=== PATIENT | male | born 1950 | race Caucasian/White ===

== ENCOUNTER 2019-07-12 07:20 | Day surgery (SDC) | payer MEDICARE ==
[2019-07-12] MEDS ORDERED: Lactated Ringers 1,000 ML IV SCH (07:30)
[2019-07-12] MEDS ORDERED: Midazolam 1 MG/ML 2 ML SDV ONE (08:19)
[2019-07-12] MEDS ORDERED: Propofol 200 MG/20 ML SDV ONE ×3 (08:19→09:34)
[2019-07-12] MEDS ORDERED: fentaNYL 100 MCG/2 ML SDV ONE (08:19)
[2019-07-12] MEDS ORDERED: Sodium Chloride 0.9% 10 ML Syringe FLUSH ONE ×2 (10:37→11:39)
[2019-07-12] MEDS ORDERED: Sodium Chloride 0.9% 100 ML IV SCH ×2 (10:45→11:45)
[2019-07-12] MEDS ORDERED: Iopamidol 612 MG/ML 100 ML Bottle IV SCH ×2 (10:45→11:45)
--- NOTE | 2019-07-12 11:55 | OR ---
DATE OF PROCEDURE: 07/12/2019 SURGEON: Christofer Wright MD PREOPERATIVE DIAGNOSIS: Positive Cologuard. POSTOPERATIVE DIAGNOSIS: Small polyps at right colon and splenic flexure tumor 30 cm from the anal verge. PROCEDURE PERFORMED: Colonoscopy to the cecum with biopsy resection of small polyps in the right colon and at the splenic flexure, biopsy of tumor at 30 cm from anal verge with tattoo of the area. ANESTHESIA: IV anesthesia with monitored anesthesia care. INDICATION: This 68-year-old white male is referred for a colonoscopy because of a positive Cologuard. I counseled him for the procedure, including risks and alternatives, and he gave his informed consent to proceed. DESCRIPTION OF PROCEDURE: The patient was placed in the left lateral decubitus position. IV anesthesia was administered by the Anesthesia Service. Time-out was held. A rectal exam was performed, which was unremarkable. The flexible video Olympus colonoscope was introduced through his anus, up his rectum, and out his colon all the way to the cecum. Once the cecum was reached, the scope was slowly withdrawn examining the mucosa throughout. Christofer Wright MD /[id number]
--- NOTE | 2019-07-12 11:58 | OR ---
DATE OF PROCEDURE: 07/12/2019 SURGEON: Christofer Wright MD PREOPERATIVE DIAGNOSIS: Positive Cologuard. POSTOPERATIVE DIAGNOSES: Small polyps at right colon and splenic flexure tumor 30 cm from the anal verge. PROCEDURE PERFORMED: Colonoscopy to the cecum with biopsy resection of small polyps at right colon and splenic flexure, and biopsy with tattoo of tumor at 30 cm from the anal verge. ANESTHESIA: IV anesthesia with monitored anesthesia care. INDICATION: This 68-year-old white male is referred for a colonoscopy because of a positive Cologuard. I counseled him for the procedure including risks and alternatives, and he gave his informed consent to proceed. DESCRIPTION OF PROCEDURE: The patient was placed in the left lateral decubitus position. IV anesthesia was administered by the Anesthesia Service. Time-out was held. A rectal exam was performed, which was unremarkable. The flexible video Olympus colonoscope was introduced through his anus, up his rectum, and out his colon all the way to the cecum. Once the cecum was reached, the scope was slowly withdrawn examining the mucosa throughout. We saw small polyps in the right colon, which were removed with the biopsy forceps and another at the splenic flexure, which was removed with the biopsy forceps. The scope was brought back to about 30 cm from the anal verge, where we saw a tumor consistent with adenocarcinoma. We obtained multiple biopsies of this. We did tattoo the area. The tumor involved about 1/3 to 1/2 of the circumference of the bowel wall. We tattooed with Ericka Ink. The scope was withdrawn further into the rectum, which appeared unremarkable. It was retroflexed with the distal rectum appearing unremarkable. The scope was straightened and removed. He tolerated the procedure well. We will proceed with a CBC, CMP, CEA, a type and screen, and CAT scan of chest, abdomen, and pelvis with the expectation of doing a colon resection. Christofer Wright MD /[id number]
--- NOTE | 2019-07-12 13:38 | CRLCT ---
INDICATION: Found tumor in sigmoid colon during colonoscopy on 07/12/2019. TECHNIQUE: CT chest, abdomen, and pelvis acquired with 100 cc Isovue-300 IV contrast. Oral contrast was administered. Coronal and sagittal reconstructions. COMPARISON: None. FINDINGS: Chest: Normal heart size. Conventional 3 vessel aortic arch. Normal caliber thoracic aorta and central pulmonary arteries. Coronary artery and aortic vascular calcifications. No large or central pulmonary embolism. No pericardial effusion. Mitral annulus calcifications. No thoracic lymphadenopathy. 1.6 cm low-attenuation right thyroid nodule. Bilateral gynecomastia. No focal consolidation, pleural effusion, pneumothorax. 2 mm noncalcified pulmonary nodule in the posterior left lower lobe (series 3, image 69). Tiny calcified granuloma left lower lobe. Hypertrophic and degenerative changes of the thoracic spine. Abdomen/pelvis: There is a 6 mm low-attenuation lesion in the left hepatic lobe (series 2, image 107). This is too small to characterize. The gallbladder, spleen, pancreas, and adrenal glands are negative. Small low-attenuation lesions in both kidneys are too small to characterize but most likely represent benign cysts. Symmetric nephrograms. No hydronephrosis. No obstructing urinary calculi. Enlarged prostate which indents on the bladder base. Small bilateral fat containing inguinal hernias. Tiny fat containing midline ventral hernia. No bowel dilation. No mass is visualized within the sigmoid colon. There is a possible 1.3 cm polyp within the ascending colon near the hepatic flexure (series 2, image 131). No intraperitoneal free air or fluid. Aortoiliac vascular calcifications. No lymphadenopathy. Degenerative changes of the spine. IMPRESSION: 1. No mass is visualized within the sigmoid colon. There is a possible 1.3 cm polyp within the ascending colon near the hepatic flexure. Recommend correlation with colonoscopy results. 2. Indeterminate 6 mm low-attenuation lesion in the left hepatic lobe which is too small to characterize. In the setting of known malignancy, metastatic disease cannot be excluded. Consider further evaluation with MRI. 3. 2 mm noncalcified pulmonary nodule in the left lower lobe. 4. 1.6 cm low-attenuation right thyroid nodule. 5. Enlarged prostate. Please note that all CT scans at this facility use dose modulation, iterative reconstruction, and/or weight-based dosing when appropriate to reduce radiation dose to as low as reasonably achievable. Dictated by Caitlyn Krishnan MD @ Jul 12 2019 1:19PM Signed by Dr. Caitlyn Krishnan @ Jul 12 2019 1:35PM
== END 2019-07-12 12:40 | disposition home or self-care (01) ==
LOC: JP.SDS 07:20
PROVIDERS: ATTEND Surgery
DX: C18.7 Malignant neoplasm of sigmoid colon (principal); D12.3 Benign neoplasm of transverse colon; D12.2 Benign neoplasm of ascending colon; I10 Essential (primary) hypertension; E11.9 Type 2 diabetes mellitus without complications; E78.5 Hyperlipidemia, unspecified; E66.9 Obesity, unspecified; Z88.8 Allergy status to other drugs, medicaments and biological substances; Z68.35 Body mass index [BMI] 35.0-35.9, adult
CPT/HCPCS: 36415; 45380; 45381; 71260; 74177; 80053; 82378; 85027; 86850; 86900; 86901; J2250; J2704; J3010; J7030; J7120; Q9967; 88305; 88341

== ENCOUNTER 2019-08-14 07:33 | Inpatient (IN) | payer MEDICARE ==
[2019-08-14] MEDS ORDERED: Gabapentin 300 MG Cap PO ONE (07:45)
[2019-08-14] MEDS ORDERED: Acetaminophen 500 MG Tab PO ONE (07:45)
[2019-08-14] MEDS ORDERED: Celecoxib 200 MG Cap PO ONE (07:45)
[2019-08-14] MEDS: Scopolamine 1.5 MG Transdermal Patch TOP SCH (08:09)
[2019-08-14] MEDS ORDERED: Dextrose 5%-Lactated Ringers 1,000 ML IV SCH (08:45)
[2019-08-14] MEDS ORDERED: cefOXitin 2 GM in Sodium Chloride 0.9% 50 ML IV ONE (09:00)
[2019-08-14] MEDS ORDERED: Sodium Phosphate,Monobasic/Sodium Phosphate,Dibasic Enema 133 ML Bottle RECTAL ONE (09:08)
[2019-08-14] MEDS ORDERED: Ketamine 50 MG in Sodium Chloride 0.9% 49.5 ML IV SCH (10:00)
[2019-08-14] MEDS ORDERED: Ketamine 500 MG/5 ML MDV IV SCH (10:00)
[2019-08-14] MEDS ORDERED: fentaNYL 250 MCG/5 ML SDV ONE ×2 (10:31→11:41)
[2019-08-14] MEDS ORDERED: Ondansetron 4 MG/2 ML SDV ONE (10:32)
[2019-08-14] MEDS ORDERED: Propofol 200 MG/20 ML SDV ONE (10:32)
[2019-08-14] MEDS ORDERED: Rocuronium 50 MG/5 ML Vial ONE ×2 (10:32→11:41)
[2019-08-14] MEDS ORDERED: Neostigmine Methylsulfate 1 MG/ML 5 ML Syringe ONE (10:32)
[2019-08-14] MEDS ORDERED: Glycopyrrolate 0.2 MG/ML 5 ML MDV ONE (10:32)
[2019-08-14] MEDS ORDERED: Dexamethasone 4 MG/ML SDV ONE (10:32)
[2019-08-14] MEDS ORDERED: Lactated Ringers 1,000 ML ONE (11:14)
[2019-08-14] MEDS ORDERED: Acetaminophen 1,000 MG in Premix Bag 1 BAG IV PRN (14:02)
[2019-08-14] MEDS ORDERED: hydrOXYzine HCl 100 MG/2 ML SDV IM PRN (14:02)
[2019-08-14] MEDS ORDERED: Ondansetron 4 MG/2 ML SDV IVPUSH PRN (14:02)
[2019-08-14] MEDS ORDERED: Scopolamine 1.5 MG Transdermal Patch TRDERM PRN (14:16)
--- NOTE | 2019-08-14 14:46 | OR ---
DATE OF PROCEDURE: 08/14/2019 SURGEON: Christofer Wright MD PREOPERATIVE DIAGNOSIS: Adenocarcinoma of the colon, 30 cm from the anal verge. POSTOPERATIVE DIAGNOSIS: Adenocarcinoma of the colon, 30 cm from the anal verge. PROCEDURE: Sigmoid resection with primary left colon to rectum anastomosis. ANESTHESIA: General endotracheal. INDICATION: This 68-year-old white male underwent a colonoscopy about a month ago because of a positive Cologuard. This was his first colonoscopy. We encountered a few polyps, but at 30 cm from the anal verge, we saw a lesion which was consistent with cancer. It was biopsied and returned adenocarcinoma. A CAT scan of his abdomen showed a small lesion in the left lobe of the liver. A followup MRI was ultimately done, which showed that this was a benign cyst. His CEA was elevated at 9.7. He was taken to the operating room at this time for a sigmoid resection. I counseled him for the procedure, including risks and alternatives, and he gave his informed consent to proceed. DESCRIPTION OF PROCEDURE: After adequate general endotracheal anesthesia was obtained, a Hughes catheter was placed. He was placed in low lithotomy. The leg compression stockings were in place and used during the entire procedure. His abdomen and perineum were prepped and draped in the usual sterile fashion. Time-out was held. A midline incision was made from above to below the umbilicus. This was carried deep using Bovie cautery to the fascia. The fascia was incised and the underlying peritoneum was elevated and incised. The fascia and peritoneum were divided to the length of the skin incision using Bovie cautery while protecting the underlying structures. The abdomen was explored. I did not palpate any abnormalities. The white line of Toldt was taken down to mobilize up the left and sigmoid colon. We did not mobilize the splenic flexure. We did tattoo the lesion, but could not immediately find it. The colonoscope was then introduced through the anus and up the rectum, and we were able to identify the site and the tattoo was then readily evident. Of interest, the sigmoid colon went up into the right and came back down into the pelvis and then up along the left colic gutter. We mobilized up the entire sigmoid colon. A suitable site for dividing the colon well proximal and distal to the tumor was selected. They were then divided with the ANTONELLA stapler in the left colon proximally and in the rectum distally. The intervening mesentery was divided well away from the colon with endoscopic ANTONELLA shae using osorio loads. We searched for the ureter and could not find it, it was quite obese. Because of that, we did stay up from the posterior abdomen level. The specimen was then delivered from the field. The end-to-end anastomosis was done using a 28 EEA stapler. The proximal staple line was excised. The anvil was placed up into the left colon. It was then re-stapled with the ANTONELLA. The EEA was then passed up through the rectum, all the way to the end of the rectum, where the staple line was. The trocar was advanced through the rectum and the other trocar on the anvil was also advanced through the left colon. We removed the trocar from the EEA and then attached the 2 pieces together, and we tightened it up. We saw the green spot on the EEA. It was then fired. It was unscrewed 2 full turns and then the EEA was gently removed. It had 2 donuts of tissue indicating a good anastomosis. The colonoscope was then introduced into the rectum. After filling the abdomen with sterile water, we insufflated and had no bubbles. The anastomosis appeared well. The scope was then removed. 3-0 Vicryl was used to close the mesenteric defect. Tisseel, fibrin sealant was placed over the anastomosis. The abdomen was irrigated with sterile water and suctioned dry. A TAP block was then performed. 40 mL of the TAP block solution was first introduced into the left side. This was done by placing the needle down through the abdominal wall and could palpate it into an appropriate position from the inside. We injected 40 mL of the fluid after aspirating it. We repeated the process with another 40 mL on the right side and all looked well. The fascia was closed with a running stitch of #2 Vicryl. The incision was irrigated and dried. 1 inch iodoform gauze was placed in the abdomen and a sterile dressing was placed with plan for delayed primary closure in 2 days. He was taken out of low lithotomy. The anesthesia was reversed. He was extubated and brought to recovery room in good condition. Christofer Wright MD /[id number]
[2019-08-14] MEDS: VERIFY SCOP PATCH TOP SCH (15:11)
[2019-08-14] MEDS: Lactated Ringers 1,000 ML IV SCH (15:19)
[2019-08-14] MEDS ORDERED: Pantoprazole 40 MG Vial IVPUSH SCH (16:00)
[2019-08-14] MEDS ORDERED: HYDROmorphone 0.5 MG/0.5 ML Syringe IVPUSH PRN (16:43)
[2019-08-14] MEDS: Insulin Lispro 100 Unit/ML 3 ML KwikPen SUBCUT SCH ×2 (17:26→22:22)
[2019-08-14] MEDS: Tamsulosin 0.4 MG Cap.ER PO SCH (20:17)
[2019-08-15] MEDS: Lactated Ringers 1,000 ML IV SCH (05:05)
[2019-08-15] MEDS ORDERED: Bisacodyl 5 MG Tab PO PRN (06:37)
--- NOTE | 2019-08-15 06:52 | PCM.SURGPN ---
- General Info Date of Service: 08/15/19 Date of Surgery/Procedure: 08/14/19 POD#: 1 Post-Op Diagnosis: Adenocarcinoma, colon Admission Diagnosis/Problem: Adenocarcinoma of colon Functional Status: Reports: Tolerating Diet, Ambulating, Urinating (Hughes), Incentive Spirometry - Review of Systems General: Reports: No Symptoms HEENT: Reports: No Symptoms Pulmonary: Reports: No Symptoms Cardiovascular: Reports: No Symptoms Gastrointestinal: Reports: Abdominal Pain. Denies: Flatus Genitourinary: Reports: No Symptoms Musculoskeletal: Reports: No Symptoms Skin: Reports: No Symptoms Neurological: Reports: No Symptoms Psychiatric: Reports: No Symptoms - Patient Data Vitals - Most Recent: Last Vital Signs Temp 98.8 F 08/15/19 02:36 Pulse 101 H 08/15/19 02:36 Resp 18 08/15/19 02:36 BP 167/80 H 08/15/19 02:36 Pulse Ox 94 L 08/15/19 02:36 Weight - Most Recent: 286 lb I&O - Last 24 Hours: Intake & Output 08/14/19 08/14/19 08/15/19 14:59 22:59 06:59 Intake Total 100 1828 2095 Output Total 855 1000 Balance 035 074 4760 Lab Results Last 24 Hrs: Laboratory Results - last 24 hr 08/14/19 08/14/19 08/14/19 Range/Units 08:00 08:00 08:00 WBC 8.2 (4.5-11.0) K/uL RBC 4.99 (4.30-5.90) M/uL Hgb 14.6 (12.0-15.0) g/dL Hct 43.4 (40.0-54.0) % MCV 87 (80-98) fL MCH 29 (27-31) pg MCHC 34 (32-36) % Plt Count 192 (150-400) K/uL Sodium 138 L (140-148) mmol/L Potassium 3.5 L (3.6-5.2) mmol/L Chloride 100 (100-108) mmol/L Carbon Dioxide 29 (21-32) mmol/L Anion Gap 12.5 (5.0-14.0) mmol/L BUN 21 H (7-18) mg/dL Creatinine 1.3 (0.8-1.3) mg/dL Est Cr Clr Drug Dosing 64.53 mL/min Estimated GFR (MDRD) 55 L (>60) Glucose 201 H (74-106) mg/dL Calcium 9.5 (8.5-10.1) mg/dL Blood Type O POSITIVE Gel Antibody Screen Negative 08/15/19 08/15/19 Range/Units 06:01 06:01 WBC 16.4 H (4.5-11.0) K/uL RBC 4.40 (4.30-5.90) M/uL Hgb 12.9 (12.0-15.0) g/dL Hct 38.2 L (40.0-54.0) % MCV 87 (80-98) fL MCH 29 (27-31) pg MCHC 34 (32-36) % Plt Count 165 (150-400) K/uL Sodium 136 L (140-148) mmol/L Potassium 3.7 (3.6-5.2) mmol/L Chloride 100 (100-108) mmol/L Carbon Dioxide 26 (21-32) mmol/L Anion Gap 13.7 (5.0-14.0) mmol/L BUN 24 H (7-18) mg/dL Creatinine 1.4 H (0.8-1.3) mg/dL Est Cr Clr Drug Dosing 59.92 mL/min Estimated GFR (MDRD) 51 L (>60) Glucose 255 H (74-106) mg/dL Calcium 9.0 (8.5-10.1) mg/dL Blood Type Gel Antibody Screen Med Orders - Current: Current Medications Alvimopan (Entereg) 12 mg PO Q12H [facility] Stop: 08/21/19 08:01 Last Admin: 08/14/19 20:17 Dose: 12 mg Bisacodyl (Dulcolax) 10 mg PO BID PRN PRN Reason: Constipation Enoxaparin Sodium (Lovenox) 40 mg SUBCUT DAILY [facility] Hydromorphone HCl (Dilaudid) 0.5 mg IVPUSH Q1H PRN PRN Reason: Pain (severe 7-10) Hydroxyzine HCl (Vistaril) 50 mg IM Q4H PRN PRN Reason: Nausea Acetaminophen 1,000 mg/ Premix 100 mls @ 400 mls/hr IV Q6H PRN PRN Reason: Pain (severe 7-10) Stop: 08/15/19 14:03 Last Admin: 08/15/19 00:47 Dose: 400 mls/hr Lactated Ringer's (Ringers, Lactated) 1,000 mls @ 75 mls/hr IV ASDIRECTED [facility] Last Admin: 08/15/19 05:05 Dose: 75 mls/hr Ibuprofen (Motrin) 400 mg PO Q4H [facility] Insulin Human Lispro (Humalog) 0 unit SUBCUT QIDACANDBED [facility]; Protocol Last Admin: 08/14/19 22:22 Dose: 3 units Verify Scop Patch 0 each TOP DAILY [facility] Last Admin: 08/14/19 15:11 Dose: Not Given Ondansetron HCl (Zofran) 4 mg IVPUSH Q6H PRN PRN Reason: Nausea/Vomiting Pantoprazole Sodium (Protonix Iv) 40 mg IVPUSH Q24H [facility] Last Admin: 08/14/19 15:21 Dose: 40 mg Scopolamine (Transderm-Scop) 1.5 mg TOP Q72H [facility] Last Admin: 08/14/19 08:09 Dose: 1.5 mg Tamsulosin HCl (Flomax) 0.4 mg PO BEDTIME [facility] Last Admin: 08/14/19 20:17 Dose: 0.4 mg Discontinued Medications Acetaminophen (Tylenol Extra Strength) 1,000 mg PO ONETIME ONE Stop: 08/14/19 07:46 Last Admin: 08/14/19 08:08 Dose: 1,000 mg Alvimopan (Entereg) 12 mg PO ONETIME ONE Stop: 08/14/19 07:46 Last Admin: 08/14/19 08:08 Dose: 12 mg Celecoxib (Celebrex) 200 mg PO ONETIME ONE Stop: 08/14/19 07:46 Last Admin: 08/14/19 08:08 Dose: 200 mg Ropivacaine 60 ml/Dexamethasone 8 mg/Epinephrine HCl 0.4 mg/ Sodium Chloride 17.6 ml 0 ml NERVRT ASDIRECTED [facility] Last Admin: 08/14/19 10:39 Dose: 80 syringe Dexamethasone (Dexamethasone) Confirm Administered Dose 4 mg .ROUTE .STK-MED ONE Stop: 08/14/19 10:33 Fentanyl (Sublimaze) Confirm Administered Dose 250 mcg .ROUTE .STK-MED ONE Stop: 08/14/19 10:32 Fentanyl (Sublimaze) Confirm Administered Dose 250 mcg .ROUTE .STK-MED ONE Stop: 08/14/19 11:42 Gabapentin (Neurontin) 300 mg PO ONETIME ONE Stop: 08/14/19 07:46 Last Admin: 08/14/19 08:08 Dose: 300 mg Glycopyrrolate (Robinul) Confirm Administered Dose 1 mg .ROUTE .STK-MED ONE Stop: 08/14/19 10:33 Cefoxitin Sodium 2 gm/ Sodium (Chloride) 50 mls @ 100 mls/hr IV ONETIME ONE Stop: 08/14/19 09:29 Last Admin: 08/14/19 10:39 Dose: 100 mls/hr Dextrose/Lactated Ringer's (Dextrose 5%-Lactated Ringers) 1,000 mls @ 100 mls/ hr IV ASDIRECTED [facility] Last Admin: 08/14/19 08:34 Dose: 100 mls/hr Ketamine HCl 50 mg/ Sodium (Chloride) 50 mls @ 24.3 mls/hr IV ASDIRECTED [facility] Lactated Ringer's (Ringers, Lactated) Confirm Administered Dose 1,000 mls @ as directed .ROUTE .STK-MED ONE Stop: 08/14/19 11:15 Ketamine HCl (Ketalar) 40 mg IV ASDIRECTED [facility] Neostigmine Methylsulfate (Neostigmine) Confirm Administered Dose 5 mg .ROUTE .STK-MED ONE Stop: 08/14/19 10:33 Ondansetron HCl (Zofran) Confirm Administered Dose 4 mg .ROUTE .STK-MED ONE Stop: 08/14/19 10:33 Propofol (Diprivan 20 Ml) Confirm Administered Dose 200 mg .ROUTE .STK-MED ONE Stop: 08/14/19 10:33 Rocuronium Hamilton (Zemuron) Confirm Administered Dose 50 mg .ROUTE .STK-MED ONE Stop: 08/14/19 10:33 Rocuronium Hamilton (Zemuron) Confirm Administered Dose 50 mg .ROUTE .STK-MED ONE Stop: 08/14/19 11:42 Sodium Biphosphate/Sodium Phosphate (Fleet Enema) 133 ml RECTAL ONETIME ONE Stop: 08/14/19 09:09 Last Admin: 08/14/19 09:13 Dose: 133 ml - Exam Wound/Incisions: Dressing Dry and Intact General: Alert, Oriented, Cooperative, No Acute Distress Lungs: Clear to Auscultation, Normal Respiratory Effort Cardiovascular: Regular Rate, Irregular Rhythm (Occasional extra systole) GI/Abdominal Exam: Distended, Abnormal Bowel Sounds (Quiet). No: Normal Bowel Sounds Extremities: Normal Inspection, Normal Range of Motion Skin: Warm, Dry, Intact Neurological: No New Focal Deficit Psy/Mental Status: Alert, Normal Affect, Normal Mood - Problem List & Annotations (1) Adenocarcinoma of colon SNOMED Code(s): 870797333, 901772660 Code(s): C18.9 - MALIGNANT NEOPLASM OF COLON, UNSPECIFIED Status: Acute Current Visit: Yes (2) Adenocarcinoma of colon SNOMED Code(s): 421275297, 829737163 Code(s): C18.9 - MALIGNANT NEOPLASM OF COLON, UNSPECIFIED Status: Acute Current Visit: Yes - Problem List Review Problem List Initiated/Reviewed/Updated: Yes - My Orders Last 24 Hours: Active Orders 24 hr Category Date Time Status Patient Status [ADT] Routine ADT 08/14/19 14:03 Active Ambulate [RC] ASDIRECTED Care 08/14/19 14:03 Active Antiembolic Devices [RC] .Routine Care 08/14/19 14:11 Active Blood Glucose Check, Bedside [RC] QIDACANDBED Care 08/14/19 14:02 Active Communication Order [RC] DAILY Care 08/15/19 06:44 Ordered DC Hughes Catheter [Urinary Catheter Removal] [RC] Per Care 08/15/19 06:44 Ordered Unit Routine Diabetes Education [RC] Click to Edit Care 08/14/19 14:10 Active Dorsiflex/Plantar flex x 10 [RC] QSHIFT Care 08/14/19 14:03 Active Head of Bed Elevation [RC] CONTINUOUS Care 08/14/19 14:03 Active Intake and Output [RC] Q4HR Care 08/14/19 14:06 Active Notify Provider Intake and Out [RC] PRN Care 08/14/19 14:06 Active Notify Provider Vital Signs [RC] PRN Care 08/14/19 14:06 Active Oxygen Therapy [RC] PRN Care 08/14/19 14:03 Active Pneumonia Education [RC] UPON Care 08/14/19 14:03 Active Pulse Oximetry [RC] CONTINUOUS Care 08/14/19 14:07 Active RT Incentive Spirometry [RC] ASDIRECTED Care 08/14/19 07:45 Active RT Incentive Spirometry [RC] Q1HWA Care 08/14/19 14:03 Active Turn, Cough, Deep Breathe [RC] Q1HWA Care 08/14/19 14:03 Active Up With Assistance [RC] ASDIRECTED Care 08/14/19 14:02 Active Up ad Danica [RC] ASDIRECTED Care 08/14/19 14:02 Active Up to Chair [RC] TIDMEALS Care 08/14/19 14:03 Active VTE/DVT Education [RC] Click to Edit Care 08/14/19 14:11 Active Vital Signs [RC] PER UNIT ROUTINE Care 08/14/19 14:03 Active Consult to Physical Therapy [PT Evaluation and Cons 08/15/19 06:45 Ordered Treatment] [CONS] Routine Respiratory Care Assess and Treatment [CONS] Routine Cons 08/14/19 14:03 Active Advance Diet Instructions [DIET] Diet 08/14/19 Lunch Active BASIC METABOLIC PANEL,BMP [CHEM] DAILY Lab 08/16/19 05:11 Ordered BASIC METABOLIC PANEL,BMP [CHEM] DAILY Lab 08/17/19 05:11 Ordered BASIC METABOLIC PANEL,BMP [CHEM] DAILY Lab 08/18/19 05:11 Ordered BASIC METABOLIC PANEL,BMP [CHEM] DAILY Lab 08/19/19 05:11 Ordered BASIC METABOLIC PANEL,BMP [CHEM] DAILY Lab 08/20/19 05:11 Ordered CBC W/O DIFF,HEMOGRAM [HEME] DAILY Lab 08/16/19 05:11 Ordered CBC W/O DIFF,HEMOGRAM [HEME] DAILY Lab 08/17/19 05:11 Ordered CBC W/O DIFF,HEMOGRAM [HEME] DAILY Lab 08/18/19 05:11 Ordered CBC W/O DIFF,HEMOGRAM [HEME] DAILY Lab 08/19/19 05:11 Ordered CBC W/O DIFF,HEMOGRAM [HEME] DAILY Lab 08/20/19 05:11 Ordered GLUCOSE POC LAB TO COLLECT [POC] QIDACANDBED Lab 08/15/19 07:30 Ordered GLUCOSE POC LAB TO COLLECT [POC] QIDACANDBED Lab 08/15/19 11:30 Ordered GLUCOSE POC LAB TO COLLECT [POC] QIDACANDBED Lab 08/15/19 16:30 Ordered GLUCOSE POC LAB TO COLLECT [POC] QIDACANDBED Lab 08/15/19 21:00 Ordered Acetaminophen [Ofirmev] 1,000 mg Med 08/14/19 14:02 Active Premix Bag 1 bag IV Q6H Alvimopan [Entereg] Med 08/14/19 20:00 Active 12 mg PO Q12H Bisacodyl [Dulcolax] Med 08/15/19 06:37 Ordered 10 mg PO BID PRN Enoxaparin [Lovenox] Med 08/15/19 09:00 Ordered 40 mg SUBCUT DAILY HYDROmorphone [Dilaudid] Med 08/14/19 16:43 Active 0.5 mg IVPUSH Q1H PRN Ibuprofen [Motrin] Med 08/15/19 06:45 Ordered 400 mg PO Q4H Insulin Lispro [HumaLOG] Med 08/14/19 17:00 Active See Protocol SUBCUT QIDACANDBED Lactated Ringers [Ringers, Lactated] 1,000 ml Med 08/14/19 14:15 Active IV ASDIRECTED Non-Formulary Medication [NF Drug] Med 08/14/19 16:00 Active 0 each TOP DAILY Ondansetron [Zofran] Med 08/14/19 14:02 Active 4 mg IVPUSH Q6H PRN Pantoprazole [ProTONIX IV] Med 08/14/19 16:00 Active 40 mg IVPUSH Q24H Scopolamine [Transderm-Scop] Med 08/14/19 07:45 Active 1.5 mg TOP Q72H Tamsulosin [Flomax] Med 08/14/19 21:00 Active 0.4 mg PO BEDTIME hydrOXYzine HCl [Vistaril] Med 08/14/19 14:02 Active 50 mg IM Q4H PRN Abdominal Binder [OM.PC] Per Unit Routine Oth 08/14/19 14:06 Ordered Convert IV to Saline Lock [OM.PC] Routine Oth 08/15/19 06:45 Ordered DVT/VTE Prophylaxis Reflex [OM.PC] Per Unit Routine Oth 08/14/19 14:11 Ordered Glucose Management Sub Q Reflex [OM.PC] Click to Edit Ot 08/14/19 14:02 Ordered Sequential Compression Device [OM.PC] Routine Oth 08/14/19 07:45 Ordered Sequential Compression Device [OM.PC] Routine Oth 08/14/19 14:02 Ordered Resuscitation Status Routine Resus Stat 08/14/19 14:02 Ordered Medication Orders Alvimopan (Entereg) 12 mg PO Q12H [facility] Stop: 08/21/19 08:01 Last Admin: 08/14/19 20:17 Dose: 12 mg Bisacodyl (Dulcolax) 10 mg PO BID PRN PRN Reason: Constipation Enoxaparin Sodium (Lovenox) 40 mg SUBCUT DAILY [facility] Hydromorphone HCl (Dilaudid) 0.5 mg IVPUSH Q1H PRN PRN Reason: Pain (severe 7-10) Hydroxyzine HCl (Vistaril) 50 mg IM Q4H PRN PRN Reason: Nausea Acetaminophen 1,000 mg/ Premix 100 mls @ 400 mls/hr IV Q6H PRN PRN Reason: Pain (severe 7-10) Stop: 08/15/19 14:03 Last Admin: 08/15/19 00:47 Dose: 400 mls/hr Lactated Ringer's (Ringers, Lactated) 1,000 mls @ 75 mls/hr IV ASDIRECTED [facility] Last Admin: 08/15/19 05:05 Dose: 75 mls/hr Infusion: 08/15/19 04:39 Dose: 75 mls/hr Admin: 08/14/19 15:19 Dose: 75 mls/hr Ibuprofen (Motrin) 400 mg PO Q4H [facility] Insulin Human Lispro (Humalog) 0 unit SUBCUT QIDACANDBED [facility]; Protocol Last Admin: 08/14/19 22:22 Dose: 3 units Admin: 08/14/19 17:26 Dose: 4 units Verify Scop Patch 0 each TOP DAILY [facility] Last Admin: 08/14/19 15:11 Dose: Ondansetron HCl (Zofran) 4 mg IVPUSH Q6H PRN PRN Reason: Nausea/Vomiting Pantoprazole Sodium (Protonix Iv) 40 mg IVPUSH Q24H [facility] Last Admin: 08/14/19 15:21 Dose: 40 mg Scopolamine (Transderm-Scop) 1.5 mg TOP Q72H [facility] Last Admin: 08/14/19 08:09 Dose: 1.5 mg Tamsulosin HCl (Flomax) 0.4 mg PO BEDTIME [facility] Last Admin: 08/14/19 20:17 Dose: 0.4 mg - Assessment Assessment (Free Text/Narrative):: Doing well. Tolerating eating. Hungry now. No flatus. Hgb OK. Good UOP. - Plan Plan (Free Text/Narrative):: D/C Hughes. Lovenox. Dulcolax. Ibuprofen.
[2019-08-15] MEDS ORDERED: Ibuprofen 400 MG Tab PO SCH (07:00)
[2019-08-15] MEDS: cloNIDine 0.1 MG Tab PO SCH ×2 (08:17→21:37)
[2019-08-15] MEDS: Ibuprofen 400 MG Tab PO SCH ×2 (08:19→13:00)
[2019-08-15] MEDS: Losartan 50 MG Tab PO SCH (08:19)
[2019-08-15] MEDS: Hydrochlorothiazide 25 MG Tab PO SCH (08:19)
[2019-08-15] MEDS: metFORMIN 500 MG Tab PO SCH ×2 (08:20→16:42)
[2019-08-15] MEDS: glipiZIDE 5 MG Tab.ER PO SCH (08:20)
[2019-08-15] MEDS: Metoprolol Tartrate 50 MG Tab PO SCH ×2 (08:21→21:37)
[2019-08-15] MEDS: amLODIPine 10 MG Tab PO SCH (08:21)
[2019-08-15] MEDS: Enoxaparin 40 MG/0.4 ML Syringe SUBCUT SCH (08:21)
[2019-08-15] MEDS: Insulin Lispro 100 Unit/ML 3 ML KwikPen SUBCUT SCH ×4 (08:22→21:40)
[2019-08-15] MEDS: VERIFY SCOP PATCH TOP SCH (08:26)
[2019-08-15] MEDS: Pantoprazole 40 MG Tab.CR PO SCH (16:41)
[2019-08-15] MEDS: Ibuprofen 600 MG Tab PO SCH ×2 (16:41→21:36)
[2019-08-15] MEDS ORDERED: PIOGLITAZONE HCL 45 MG PO SCH (21:00)
[2019-08-15] MEDS: Tamsulosin 0.4 MG Cap.ER PO SCH (21:37)
[2019-08-15] MEDS: atorvaSTATin 20 MG Tab PO SCH (21:37)
[2019-08-15] MEDS: PIOGLITAZONE 45 MG PO SCH (21:39)
[2019-08-15] MEDS: Insulin Glargine,Human Rec. Analog 100 Units/ML 3 ML Pen SUBCUT SCH (21:39)
[2019-08-16] MEDS: Ibuprofen 600 MG Tab PO SCH ×4 (04:28→21:15)
[2019-08-16] MEDS: Insulin Lispro 100 Unit/ML 3 ML KwikPen SUBCUT SCH ×4 (08:34→20:42)
[2019-08-16] MEDS: cloNIDine 0.1 MG Tab PO SCH ×2 (08:38→20:27)
[2019-08-16] MEDS: Metoprolol Tartrate 50 MG Tab PO SCH ×2 (08:38→20:29)
[2019-08-16] MEDS: amLODIPine 10 MG Tab PO SCH (08:39)
[2019-08-16] MEDS: Losartan 50 MG Tab PO SCH (08:40)
[2019-08-16] MEDS: VERIFY SCOP PATCH TOP SCH (08:41)
[2019-08-16] MEDS: Enoxaparin 40 MG/0.4 ML Syringe SUBCUT SCH (09:20)
[2019-08-16] MEDS ORDERED: Lidocaine 1% with EPINEPHrine 1:100,000 50 ML MDV ONE (09:50)
[2019-08-16] MEDS ORDERED: Bupivacaine 0.5% 50 ML MDV ONE (09:50)
[2019-08-16] MEDS ORDERED: fentaNYL 100 MCG/2 ML SDV ONE (09:53)
[2019-08-16] MEDS ORDERED: Propofol 200 MG/20 ML SDV ONE (09:53)
[2019-08-16] MEDS ORDERED: Midazolam 1 MG/ML 2 ML SDV ONE (09:53)
[2019-08-16] MEDS: glipiZIDE 5 MG Tab.ER PO SCH (12:48)
[2019-08-16] MEDS: Hydrochlorothiazide 25 MG Tab PO SCH (12:48)
[2019-08-16] MEDS: metFORMIN 500 MG Tab PO SCH ×2 (12:49→17:27)
[2019-08-16] MEDS: Pantoprazole 40 MG Tab.CR PO SCH (15:59)
[2019-08-16] MEDS: Tamsulosin 0.4 MG Cap.ER PO SCH (20:27)
[2019-08-16] MEDS: atorvaSTATin 20 MG Tab PO SCH (20:29)
[2019-08-16] MEDS: PIOGLITAZONE 45 MG PO SCH (20:31)
[2019-08-16] MEDS: Insulin Glargine,Human Rec. Analog 100 Units/ML 3 ML Pen SUBCUT SCH (20:43)
[2019-08-17] MEDS: Ibuprofen 600 MG Tab PO SCH ×4 (04:32→21:47)
--- NOTE | 2019-08-17 06:35 | PCM.SURGPN ---
- General Info Date of Service: 08/17/19 Date of Surgery/Procedure: 08/14/19 POD#: 3 Post-Op Diagnosis: Adenocarcinoma of colon Admission Diagnosis/Problem: Adenocarcinoma of colon Functional Status: Reports: Pain Controlled, Tolerating Diet, Ambulating, Urinating, Incentive Spirometry - Review of Systems General: Reports: No Symptoms HEENT: Reports: No Symptoms Pulmonary: Reports: No Symptoms Cardiovascular: Reports: No Symptoms Gastrointestinal: Reports: No Symptoms, Flatus Genitourinary: Reports: No Symptoms Musculoskeletal: Reports: No Symptoms Skin: Reports: No Symptoms Neurological: Reports: No Symptoms Psychiatric: Reports: No Symptoms - Patient Data Vitals - Most Recent: Last Vital Signs Temp 96.4 F 08/17/19 04:29 Pulse 65 08/17/19 04:29 Resp 16 08/17/19 04:29 BP 136/51 L 08/17/19 04:29 Pulse Ox 97 08/17/19 04:29 Weight - Most Recent: 286 lb I&O - Last 24 Hours: Intake & Output 08/16/19 08/16/19 08/17/19 14:59 22:59 06:59 Intake Total 60 400 1200 Output Total 1275 1000 900 Balance -1215 -600 300 Lab Results Last 24 Hrs: Laboratory Results - last 24 hr 08/17/19 08/17/19 Range/Units 04:30 04:30 WBC 9.7 (4.5-11.0) K/uL RBC 4.03 L (4.30-5.90) M/uL Hgb 11.7 L (12.0-15.0) g/dL Hct 35.8 L (40.0-54.0) % MCV 89 (80-98) fL MCH 29 (27-31) pg MCHC 33 (32-36) % Plt Count 157 (150-400) K/uL Sodium 139 L (140-148) mmol/L Potassium 4.0 (3.6-5.2) mmol/L Chloride 99 L (100-108) mmol/L Carbon Dioxide 29 (21-32) mmol/L Anion Gap 15.0 H (5.0-14.0) mmol/L BUN 22 H (7-18) mg/dL Creatinine 1.3 (0.8-1.3) mg/dL Est Cr Clr Drug Dosing 64.08 mL/min Estimated GFR (MDRD) 55 L (>60) Glucose 142 H (74-106) mg/dL Calcium 8.5 (8.5-10.1) mg/dL Med Orders - Current: Current Medications Alvimopan (Entereg) 12 mg PO Q12H [facility] Stop: 08/21/19 08:01 Last Admin: 08/16/19 20:27 Dose: 12 mg Amlodipine Besylate (Norvasc) 10 mg PO DAILY [facility] Last Admin: 08/16/19 08:39 Dose: 10 mg Atorvastatin Calcium (Lipitor) 80 mg PO BEDTIME [facility] Last Admin: 08/16/19 20:29 Dose: 80 mg Bisacodyl (Dulcolax) 10 mg PO BID PRN PRN Reason: Constipation Clonidine HCl (Catapres) 0.1 mg PO BID [facility] Last Admin: 08/16/19 20:27 Dose: 0.1 mg Enoxaparin Sodium (Lovenox) 40 mg SUBCUT DAILY [facility] Last Admin: 08/16/19 09:20 Dose: Not Given Glipizide (Glucotrol Xl) 10 mg PO DAILY [facility] Last Admin: 08/16/19 12:48 Dose: 10 mg Hydrochlorothiazide (Hydrochlorothiazide) 25 mg PO DAILY [facility] Last Admin: 08/16/19 12:48 Dose: 25 mg Hydromorphone HCl (Dilaudid) 0.5 mg IVPUSH Q1H PRN PRN Reason: Pain (severe 7-10) Hydroxyzine HCl (Vistaril) 50 mg IM Q4H PRN PRN Reason: Nausea Ibuprofen (Motrin) 600 mg PO Q6H [facility] Last Admin: 08/17/19 04:32 Dose: 600 mg Insulin Glargine (Lantus Solostar) 30 units SUBCUT BEDTIME [facility] Last Admin: 08/16/19 20:43 Dose: 30 unit Insulin Human Lispro (Humalog) 0 unit SUBCUT QIDACANDBED [facility]; Protocol Last Admin: 08/16/19 20:42 Dose: Not Given Losartan Potassium (Cozaar) 100 mg PO DAILY [facility] Last Admin: 08/16/19 08:40 Dose: 100 mg Metformin HCl (Glucophage) 1,000 mg PO BIDMEALS [facility] Last Admin: 08/16/19 17:27 Dose: 1,000 mg Metoprolol Tartrate (Lopressor) 100 mg PO BID [facility] Last Admin: 08/16/19 20:29 Dose: 100 mg Verify Scop Patch 0 each TOP DAILY [facility] Last Admin: 08/16/19 08:41 Dose: Not Given Ondansetron HCl (Zofran) 4 mg IVPUSH Q6H PRN PRN Reason: Nausea/Vomiting Pantoprazole Sodium (Protonix) 40 mg PO Q24H [facility] Last Admin: 08/16/19 15:59 Dose: 40 mg Pioglitazone 45mg (Tab (Ptom)) 1 each PO BEDTIME [facility] Last Admin: 08/16/19 20:31 Dose: 1 each Scopolamine (Transderm-Scop) 1.5 mg TOP Q72H [facility] Last Admin: 08/14/19 08:09 Dose: 1.5 mg Senna/Docusate Sodium (Senna Plus) 1 tab PO BID [facility] Last Admin: 08/16/19 20:30 Dose: 1 tab Tamsulosin HCl (Flomax) 0.4 mg PO BEDTIME [facility] Last Admin: 08/16/19 20:27 Dose: 0.4 mg Discontinued Medications Acetaminophen (Tylenol Extra Strength) 1,000 mg PO ONETIME ONE Stop: 08/14/19 07:46 Last Admin: 08/14/19 08:08 Dose: 1,000 mg Alvimopan (Entereg) 12 mg PO ONETIME ONE Stop: 08/14/19 07:46 Last Admin: 08/14/19 08:08 Dose: 12 mg Bupivacaine HCl (Marcaine 0.5%) Confirm Administered Dose 50 ml .ROUTE .STK-MED ONE Stop: 08/16/19 09:51 Celecoxib (Celebrex) 200 mg PO ONETIME ONE Stop: 08/14/19 07:46 Last Admin: 08/14/19 08:08 Dose: 200 mg Ropivacaine 60 ml/Dexamethasone 8 mg/Epinephrine HCl 0.4 mg/ Sodium Chloride 17.6 ml 0 ml NERVRT ASDIRECTED [facility] Last Admin: 08/14/19 10:39 Dose: 80 syringe Dexamethasone (Dexamethasone) Confirm Administered Dose 4 mg .ROUTE .STK-MED ONE Stop: 08/14/19 10:33 Fentanyl (Sublimaze) Confirm Administered Dose 250 mcg .ROUTE .STK-MED ONE Stop: 08/14/19 10:32 Fentanyl (Sublimaze) Confirm Administered Dose 250 mcg .ROUTE .STK-MED ONE Stop: 08/14/19 11:42 Fentanyl (Sublimaze) Confirm Administered Dose 100 mcg .ROUTE .STK-MED ONE Stop: 08/16/19 09:54 Gabapentin (Neurontin) 300 mg PO ONETIME ONE Stop: 08/14/19 07:46 Last Admin: 08/14/19 08:08 Dose: 300 mg Glycopyrrolate (Robinul) Confirm Administered Dose 1 mg .ROUTE .STK-MED ONE Stop: 08/14/19 10:33 Cefoxitin Sodium 2 gm/ Sodium (Chloride) 50 mls @ 100 mls/hr IV ONETIME ONE Stop: 08/14/19 09:29 Last Admin: 08/14/19 10:39 Dose: 100 mls/hr Dextrose/Lactated Ringer's (Dextrose 5%-Lactated Ringers) 1,000 mls @ 100 mls/ hr IV ASDIRECTED [facility] Last Admin: 08/14/19 08:34 Dose: 100 mls/hr Ketamine HCl 50 mg/ Sodium (Chloride) 50 mls @ 24.3 mls/hr IV ASDIRECTED [facility] Lactated Ringer's (Ringers, Lactated) Confirm Administered Dose 1,000 mls @ as directed .ROUTE .STK-MED ONE Stop: 08/14/19 11:15 Acetaminophen 1,000 mg/ Premix 100 mls @ 400 mls/hr IV Q6H PRN PRN Reason: Pain (severe 7-10) Stop: 08/15/19 14:03 Last Admin: 08/15/19 00:47 Dose: 400 mls/hr Lactated Ringer's (Ringers, Lactated) 1,000 mls @ 75 mls/hr IV ASDIRECTED [facility] Last Admin: 08/15/19 05:05 Dose: 75 mls/hr Ibuprofen (Motrin) 400 mg PO Q4H [facility] Last Admin: 08/15/19 13:00 Dose: Not Given Ketamine HCl (Ketalar) 40 mg IV ASDIRECTED [facility] Lidocaine/Epinephrine (Xylocaine 1% With Epinephrine 1:100,000) Confirm Administered Dose 50 ml .ROUTE .STK-MED ONE Stop: 08/16/19 09:51 Midazolam HCl (Versed 1 Mg/Ml) Confirm Administered Dose 2 mg .ROUTE .STK-MED ONE Stop: 08/16/19 09:54 Neostigmine Methylsulfate (Neostigmine) Confirm Administered Dose 5 mg .ROUTE .STK-MED ONE Stop: 08/14/19 10:33 Ondansetron HCl (Zofran) Confirm Administered Dose 4 mg .ROUTE .STK-MED ONE Stop: 08/14/19 10:33 Pantoprazole Sodium (Protonix Iv) 40 mg IVPUSH Q24H [facility] Last Admin: 08/14/19 15:21 Dose: 40 mg Propofol (Diprivan 20 Ml) Confirm Administered Dose 200 mg .ROUTE .STK-MED ONE Stop: 08/14/19 10:33 Propofol (Diprivan 20 Ml) Confirm Administered Dose 200 mg .ROUTE .STK-MED ONE Stop: 08/16/19 09:54 Rocuronium [place] (Zemuron) Confirm Administered Dose 50 mg .ROUTE .STK-MED ONE Stop: 08/14/19 10:33 Rocuronium [place] (Zemuron) Confirm Administered Dose 50 mg .ROUTE .STK-MED ONE Stop: 08/14/19 11:42 Sodium Biphosphate/Sodium Phosphate (Fleet Enema) 133 ml RECTAL ONETIME ONE Stop: 08/14/19 09:09 Last Admin: 08/14/19 09:13 Dose: 133 ml - Exam Wound/Incisions: Dressing Dry and Intact General: Alert, Oriented, Cooperative, No Acute Distress Lungs: Clear to Auscultation, Normal Respiratory Effort Cardiovascular: Regular Rate, Regular Rhythm GI/Abdominal Exam: Normal Bowel Sounds, Distended Extremities: Normal Inspection Skin: Warm, Dry, Intact Neurological: No New Focal Deficit Psy/Mental Status: Alert, Normal Affect, Normal Mood - Problem List & Annotations (1) Adenocarcinoma of colon SNOMED Code(s): 586854804, 486637268 Code(s): C18.9 - MALIGNANT NEOPLASM OF COLON, UNSPECIFIED Status: Acute Current Visit: Yes (2) Adenocarcinoma of colon SNOMED Code(s): 532239658, 346388226 Code(s): C18.9 - MALIGNANT NEOPLASM OF COLON, UNSPECIFIED Status: Acute Current Visit: Yes - Problem List Review Problem List Initiated/Reviewed/Updated: Yes - My Orders Last 24 Hours: Active Orders 24 hr Category Date Time Status Communication Order [RC] ROUTINE Care 08/16/19 11:30 Active Communication Order [RC] ROUTINE Care 08/17/19 08:00 Active BASIC METABOLIC PANEL,BMP [CHEM] DAILY Lab 08/18/19 05:11 Ordered BASIC METABOLIC PANEL,BMP [CHEM] DAILY Lab 08/19/19 05:11 Ordered BASIC METABOLIC PANEL,BMP [CHEM] DAILY Lab 08/20/19 05:11 Ordered CBC W/O DIFF,HEMOGRAM [HEME] DAILY Lab 08/18/19 05:11 Ordered CBC W/O DIFF,HEMOGRAM [HEME] DAILY Lab 08/19/19 05:11 Ordered CBC W/O DIFF,HEMOGRAM [HEME] DAILY Lab 08/20/19 05:11 Ordered GLUCOSE POC LAB TO COLLECT [POC] QIDACANDBED Lab 08/17/19 07:30 Ordered GLUCOSE POC LAB TO COLLECT [POC] QIDACANDBED Lab 08/17/19 11:30 Ordered GLUCOSE POC LAB TO COLLECT [POC] QIDACANDBED Lab 08/17/19 16:30 Ordered GLUCOSE POC LAB TO COLLECT [POC] QIDACANDBED Lab 08/17/19 21:00 Ordered Medication Orders Alvimopan (Entereg) 12 mg PO Q12H [facility] Stop: 08/21/19 08:01 Last Admin: 08/16/19 20:27 Dose: 12 mg Admin: 08/16/19 12:50 Dose: 12 mg Admin: 08/15/19 19:22 Dose: 12 mg Admin: 08/15/19 08:17 Dose: 12 mg Admin: 08/14/19 20:17 Dose: 12 mg Amlodipine Besylate (Norvasc) 10 mg PO DAILY [facility] Last Admin: 08/16/19 08:39 Dose: 10 mg Admin: 08/15/19 08:21 Dose: 10 mg Atorvastatin Calcium (Lipitor) 80 mg PO BEDTIME [facility] Last Admin: 08/16/19 20:29 Dose: 80 mg Admin: 08/15/19 21:37 Dose: 80 mg Bisacodyl (Dulcolax) 10 mg PO BID PRN PRN Reason: Constipation Clonidine HCl (Catapres) 0.1 mg PO BID [facility] Last Admin: 08/16/19 20:27 Dose: 0.1 mg Admin: 08/16/19 08:38 Dose: 0.1 mg Admin: 08/15/19 21:37 Dose: 0.1 mg Admin: 08/15/19 08:17 Dose: 0.1 mg Enoxaparin Sodium (Lovenox) 40 mg SUBCUT DAILY [facility] Last Admin: 08/16/19 09:20 Dose: Not Given Admin: 08/15/19 08:21 Dose: 40 mg Glipizide (Glucotrol Xl) 10 mg PO DAILY [facility] Last Admin: 08/16/19 12:48 Dose: 10 mg Admin: 08/15/19 08:20 Dose: 10 mg Hydrochlorothiazide (Hydrochlorothiazide) 25 mg PO DAILY [facility] Last Admin: 08/16/19 12:48 Dose: 25 mg Admin: 08/15/19 08:19 Dose: 25 mg Hydromorphone HCl (Dilaudid) 0.5 mg IVPUSH Q1H PRN PRN Reason: Pain (severe 7-10) Hydroxyzine HCl (Vistaril) 50 mg IM Q4H PRN PRN Reason: Nausea Ibuprofen (Motrin) 600 mg PO Q6H [facility] Last Admin: 08/17/19 04:32 Dose: 600 mg Admin: 08/16/19 21:15 Dose: 600 mg Admin: 08/16/19 15:57 Dose: 600 mg Admin: 08/16/19 12:51 Dose: Admin: 08/16/19 04:28 Dose: 600 mg Admin: 08/15/19 21:36 Dose: 600 mg Admin: 08/15/19 16:41 Dose: 600 mg Insulin Glargine (Lantus Solostar) 30 units SUBCUT BEDTIME [facility] Last Admin: 08/16/19 20:43 Dose: 30 unit Admin: 08/15/19 21:39 Dose: 30 unit Insulin Human Lispro (Humalog) 0 unit SUBCUT QIDACANDBED [facility]; Protocol Last Admin: 08/16/19 20:42 Dose: Admin: 08/16/19 17:29 Dose: 1 units Admin: 08/16/19 13:57 Dose: Not Given Admin: 08/16/19 08:34 Dose: Admin: 08/15/19 21:40 Dose: 1 units Admin: 08/15/19 16:43 Dose: 1 units Admin: 08/15/19 11:34 Dose: 3 units Admin: 08/15/19 08:22 Dose: 2 units Admin: 08/14/19 22:22 Dose: 3 units Admin: 08/14/19 17:26 Dose: 4 units Losartan Potassium (Cozaar) 100 mg PO DAILY [facility] Last Admin: 08/16/19 08:40 Dose: 100 mg Admin: 08/15/19 08:19 Dose: 100 mg Metformin HCl (Glucophage) 1,000 mg PO BIDMEALS [facility] Last Admin: 08/16/19 17:27 Dose: 1,000 mg Admin: 08/16/19 12:49 Dose: 1,000 mg Admin: 08/15/19 16:42 Dose: 1,000 mg Admin: 08/15/19 08:20 Dose: 1,000 mg Metoprolol Tartrate (Lopressor) 100 mg PO BID [facility] Last Admin: 08/16/19 20:29 Dose: 100 mg Admin: 08/16/19 08:38 Dose: 100 mg Admin: 08/15/19 21:37 Dose: 100 mg Admin: 08/15/19 08:21 Dose: 100 mg Verify Scop Patch 0 each TOP DAILY [facility] Last Admin: 08/16/19 08:41 Dose: Admin: 08/15/19 08:26 Dose: Admin: 08/14/19 15:11 Dose: Ondansetron HCl (Zofran) 4 mg IVPUSH Q6H PRN PRN Reason: Nausea/Vomiting Pantoprazole Sodium (Protonix) 40 mg PO Q24H [facility] Last Admin: 08/16/19 15:59 Dose: 40 mg Admin: 08/15/19 16:41 Dose: 40 mg Pioglitazone 45mg (Tab (Ptom)) 1 each PO BEDTIME [facility] Last Admin: 08/16/19 20:31 Dose: 1 each Admin: 08/15/19 21:39 Dose: 1 each Scopolamine (Transderm-Scop) 1.5 mg TOP Q72H [facility] Last Admin: 08/14/19 08:09 Dose: 1.5 mg Senna/Docusate Sodium (Senna Plus) 1 tab PO BID [facility] Last Admin: 08/16/19 20:30 Dose: 1 tab Admin: 08/16/19 12:48 Dose: 1 tab Admin: 08/15/19 21:38 Dose: 1 tab Admin: 08/15/19 08:21 Dose: 1 tab Tamsulosin HCl (Flomax) 0.4 mg PO BEDTIME [facility] Last Admin: 08/16/19 20:27 Dose: 0.4 mg Admin: 08/15/19 21:37 Dose: 0.4 mg Admin: 08/14/19 20:17 Dose: 0.4 mg - Assessment Assessment (Free Text/Narrative):: Started to have flatus, still distended. Bowel sounds seem improved. - Plan Plan (Free Text/Narrative):: Restart Lovenox. Hopefully ready to go home tomorrow.
[2019-08-17] MEDS: Insulin Lispro 100 Unit/ML 3 ML KwikPen SUBCUT SCH ×4 (07:28→21:41)
--- NOTE | 2019-08-17 08:02 | OR ---
DATE OF PROCEDURE: 08/16/2019 SURGEON: Christofer Wright MD PREOPERATIVE DIAGNOSIS: Open abdominal incision, status post colon resection. POSTOPERATIVE DIAGNOSIS: Open abdominal incision, status post colon resection. PROCEDURE: Delayed primary closure. ANESTHESIA: IV anesthesia with monitored anesthesia care. INDICATION: This 68-year-old white male is 2 days status post a sigmoid resection for adenocarcinoma of the colon. His incision was left open for delayed primary closure. I counseled him for the procedure including risks and alternatives, and he gave his informed consent to proceed. Of interest, there was some blood draining out through the incision after he was started on Lovenox yesterday. DESCRIPTION OF PROCEDURE: After adequate IV anesthesia was obtained, the dressings were removed. His abdomen was prepped and draped in usual sterile fashion. Time-out was held. Incision was irrigated with saline and aspirated free. There were 3 small areas of bleeding, which were controlled with electrocautery. All then looked well. The skin was then approximated with skin shae. A sterile dressing was applied. He tolerated the procedure well and was brought from the operating room in good condition. Christofer Wright MD /[id number]
[2019-08-17] MEDS: cloNIDine 0.1 MG Tab PO SCH ×2 (08:40→20:13)
[2019-08-17] MEDS: metFORMIN 500 MG Tab PO SCH ×2 (08:40→16:36)
[2019-08-17] MEDS: glipiZIDE 5 MG Tab.ER PO SCH (08:40)
[2019-08-17] MEDS: Losartan 50 MG Tab PO SCH (08:40)
[2019-08-17] MEDS: Metoprolol Tartrate 50 MG Tab PO SCH ×2 (08:41→20:11)
[2019-08-17] MEDS: Hydrochlorothiazide 25 MG Tab PO SCH (08:41)
[2019-08-17] MEDS: VERIFY SCOP PATCH TOP SCH (08:43)
[2019-08-17] MEDS: Scopolamine 1.5 MG Transdermal Patch TOP SCH (08:44)
[2019-08-17] MEDS: amLODIPine 10 MG Tab PO SCH (08:44)
[2019-08-17] MEDS: Enoxaparin 40 MG/0.4 ML Syringe SUBCUT SCH (08:56)
[2019-08-17] MEDS ORDERED: Enoxaparin 40 MG/0.4 ML Syringe SUBCUT SCH (09:00)
[2019-08-17] MEDS: Pantoprazole 40 MG Tab.CR PO SCH (16:37)
[2019-08-17] MEDS: Tamsulosin 0.4 MG Cap.ER PO SCH (20:10)
[2019-08-17] MEDS: PIOGLITAZONE 45 MG PO SCH (20:11)
[2019-08-17] MEDS: atorvaSTATin 20 MG Tab PO SCH (20:11)
[2019-08-17] MEDS: Insulin Glargine,Human Rec. Analog 100 Units/ML 3 ML Pen SUBCUT SCH (21:40)
[2019-08-18] MEDS: Ibuprofen 600 MG Tab PO SCH ×2 (04:00→09:55)
[2019-08-18] MEDS: Insulin Lispro 100 Unit/ML 3 ML KwikPen SUBCUT SCH ×2 (07:58→12:41)
[2019-08-18] MEDS: metFORMIN 500 MG Tab PO SCH (08:02)
[2019-08-18] MEDS: cloNIDine 0.1 MG Tab PO SCH (08:02)
[2019-08-18] MEDS: Hydrochlorothiazide 25 MG Tab PO SCH (08:03)
[2019-08-18] MEDS: Losartan 50 MG Tab PO SCH (08:03)
[2019-08-18] MEDS: glipiZIDE 5 MG Tab.ER PO SCH (08:03)
[2019-08-18] MEDS: Metoprolol Tartrate 50 MG Tab PO SCH (08:04)
[2019-08-18] MEDS: VERIFY SCOP PATCH TOP SCH (08:05)
[2019-08-18] MEDS: Enoxaparin 40 MG/0.4 ML Syringe SUBCUT SCH (08:06)
[2019-08-18] MEDS: amLODIPine 10 MG Tab PO SCH (08:07)
--- NOTE | 2019-08-18 13:53 | PCM.DCSUM1 ---
Discharge Summary - Hospital Course Free Text/Narrative:: This 68 year old white male had a positive Cologuard which caused him to under go his first colonoscopy. Precancerous polyps were found and a tumor 30 cm from the anal verge. CT of his chest/abdomen/pelvis showed a small lesion in his liver which on MRI is found to be a cyst. His CEA was elevated at about 9. He underwent a sigmoid resection on August 14, 2019. There was one lymph node of 13 involved with tumor. He is eating and having bowel movements. He is ready to go home. He is discharged at this time in good condition. He will see me in three days for a check and with the oncologist (Dr. Kat) in four days at 12:30 in the [facility]. Diagnosis: Stroke: No - Discharge Data Discharge Date: 08/18/19 Discharge Disposition: Home, Self-Care 01 Condition: Good - Referral to Home Health Primary Care Physician: Jacques Diallo NP - Discharge Diagnosis/Problem(s) (1) Adenocarcinoma of colon SNOMED Code(s): 171883030, [id number] ICD Code: C18.9 - MALIGNANT NEOPLASM OF COLON, UNSPECIFIED Status: Acute Current Visit: Yes (2) Adenocarcinoma of colon SNOMED Code(s): 529259616, [id number] ICD Code: C18.9 - MALIGNANT NEOPLASM OF COLON, UNSPECIFIED Status: Acute Current Visit: Yes - Patient Summary/Data Operative Procedure(s) Performed: Sigmoid resection Consults: Consultations 08/14/19 14:03 Respiratory Care Assess and Treatment [CONS] Routine Comment: Physician Instructions: Post-Op Pneumonia Prevention 08/15/19 06:45 Consult to Physical Therapy [PT Evaluation and Treatment] [CONS] Routine Please Evaluate and Treat. PT Reason for Consult: Ambulation Pending Discharge: No Discharge Disposition: Home Special Instructions: Assistance regarding increasing mobility This query below is only for informational purposes and is not editable. Admission Diagnosis/Problem: Adenocarcinoma Hospital Course: See above narrative. - Patient Instructions Diet: Usual Diet as Tolerated Activity: No Lifting Over 10 Pounds (For six week from surgery), No Strenuous Activities (For six weeks from surgery) Driving: Do Not Drive Showering/Bathing: May Shower, No Tub Bathing/Swimming Notify Provider of: Fever, Increased Pain, Swelling and Redness, Drainage, Nausea and/or Vomiting - Discharge Plan *PRESCRIPTION DRUG MONITORING PROGRAM REVIEWED*: No *COPY OF PRESCRIPTION DRUG MONITORING REPORT IN PATIENT RIOS: No Home Medications: Home Meds Aspirin [Halfprin] 81 mg PO DAILY 07/10/19 [History] Insulin Glarg,Human.Rec.Analog [Lantus Solostar] 30 unit SQ BEDTIME 07/10/19 [ History] Losartan Potassium 100 mg PO DAILY 07/10/19 [History] Metoprolol Tartrate [Lopressor] 100 mg PO BID 07/10/19 [History] Pioglitazone HCl 45 mg PO DAILY 07/10/19 [History] amLODIPine Besylate [Amlodipine Besylate] 10 mg PO DAILY 07/10/19 [History] atorvaSTATin Calcium [Atorvastatin Calcium] 80 mg PO DAILY 07/10/19 [History] cloNIDine [Catapres] 0.1 mg PO BID 07/10/19 [History] glipiZIDE [Glipizide ER] 10 mg PO DAILY 07/10/19 [History] hydroCHLOROthiazide [Hydrochlorothiazide] 25 mg PO DAILY 07/10/19 [History] metFORMIN HCl [Metformin HCl] 1,000 mg PO BID 07/10/19 [History] Ibuprofen [Motrin] 600 mg PO Q6H tablet 08/18/19 [Rx] Insulin Glarg,Human.Rec.Analog [Lantus Solostar] 30 units SUBCUT BEDTIME pen [Rx] Insulin Lispro [Humalog] 0 unit SUBCUT QIDACANDBED pen 08/18/19 [Rx] Losartan [Cozaar] 100 mg PO DAILY tablet 08/18/19 [Rx] Metoprolol Tartrate [Lopressor] 100 mg PO BID tablet 08/18/19 [Rx] Non-Formulary Medication [NF Drug] 0 each TOP DAILY each 08/18/19 [Rx] Patient's Own Medication [Ptom] 1 each PO BEDTIME each 08/18/19 [Rx] Tamsulosin [Flomax] 0.4 mg PO BEDTIME cap.er 08/18/19 [Rx] atorvaSTATin [Lipitor] 80 mg PO BEDTIME tablet 08/18/19 [Rx] cloNIDine [Catapres] 0.1 mg PO BID tablet 08/18/19 [Rx] glipiZIDE [Glucotrol XL] 10 mg PO DAILY tab.er 08/18/19 [Rx] hydroCHLOROthiazide [Hydrochlorothiazide] 25 mg PO DAILY tablet 08/18/19 [Rx] metFORMIN [Glucophage] 1,000 mg PO BIDMEALS tablet 08/18/19 [Rx] Referrals: Christofer Wright MD [Physician] - (See me in [facility] in three days. ) Emely Kat MD [Ordering Only Provider] - (See the oncologist (Dr. Kat) in [facility] on August 22, 2019.) - Discharge Summary/Plan Comment DC Time >30 min.: Yes Discharge Summary/Plan Comment: See above narrative. - Patient Data Vitals - Most Recent: Last Vital Signs Temp 96.8 F 08/18/19 12:04 Pulse 73 08/18/19 12:04 Resp 16 08/18/19 12:04 BP 140/63 08/18/19 12:04 Pulse Ox 96 08/18/19 12:04 Weight - Most Recent: 286 lb I&O - Last 24 hours: Intake & Output 08/17/19 08/18/19 08/18/19 22:59 06:59 14:59 Intake Total 1880 750 475 Output Total 675 725 Balance 1205 25 475 Lab Results - Last 24 hrs: Laboratory Results - last 24 hr 08/18/19 08/18/19 Range/Units 04:35 04:35 WBC 8.0 (4.5-11.0) K/uL RBC 4.05 L (4.30-5.90) M/uL Hgb 11.6 L (12.0-15.0) g/dL Hct 35.7 L (40.0-54.0) % MCV 88 (80-98) fL MCH 29 (27-31) pg MCHC 33 (32-36) % Plt Count 179 (150-400) K/uL Sodium 139 L (140-148) mmol/L Potassium 3.3 L (3.6-5.2) mmol/L Chloride 101 (100-108) mmol/L Carbon Dioxide 30 (21-32) mmol/L Anion Gap 11.3 (5.0-14.0) mmol/L BUN 19 H (7-18) mg/dL Creatinine 1.2 (0.8-1.3) mg/dL Est Cr Clr Drug Dosing 69.42 mL/min Estimated GFR (MDRD) > 60 (>60) Glucose 121 H (74-106) mg/dL Calcium 8.8 (8.5-10.1) mg/dL Med Orders - Current: Current Medications Alvimopan (Entereg) 12 mg PO Q12H [facility] Stop: 08/21/19 08:01 Last Admin: 08/18/19 08:02 Dose: 12 mg Amlodipine Besylate (Norvasc) 10 mg PO DAILY [facility] Last Admin: 08/18/19 08:07 Dose: 10 mg Atorvastatin Calcium (Lipitor) 80 mg PO BEDTIME [facility] Last Admin: 08/17/19 20:11 Dose: 80 mg Bisacodyl (Dulcolax) 10 mg PO BID PRN PRN Reason: Constipation Last Admin: 08/17/19 18:44 Dose: 10 mg Clonidine HCl (Catapres) 0.1 mg PO BID [facility] Last Admin: 08/18/19 08:02 Dose: 0.1 mg Enoxaparin Sodium (Lovenox) 40 mg SUBCUT DAILY [facility] Last Admin: 08/18/19 08:06 Dose: 40 mg Glipizide (Glucotrol Xl) 10 mg PO DAILY [facility] Last Admin: 08/18/19 08:03 Dose: 10 mg Hydrochlorothiazide (Hydrochlorothiazide) 25 mg PO DAILY [facility] Last Admin: 08/18/19 08:03 Dose: 25 mg Hydromorphone HCl (Dilaudid) 0.5 mg IVPUSH Q1H PRN PRN Reason: Pain (severe 7-10) Hydroxyzine HCl (Vistaril) 50 mg IM Q4H PRN PRN Reason: Nausea Ibuprofen (Motrin) 600 mg PO Q6H [facility] Last Admin: 08/18/19 09:55 Dose: 600 mg Insulin Glargine (Lantus Solostar) 30 units SUBCUT BEDTIME [facility] Last Admin: 08/17/19 21:40 Dose: 30 unit Insulin Human Lispro (Humalog) 0 unit SUBCUT QIDACANDBED [facility]; Protocol Last Admin: 08/18/19 12:41 Dose: 1 units Losartan Potassium (Cozaar) 100 mg PO DAILY [facility] Last Admin: 08/18/19 08:03 Dose: 100 mg Metformin HCl (Glucophage) 1,000 mg PO BIDMEALS [facility] Last Admin: 08/18/19 08:02 Dose: 1,000 mg Metoprolol Tartrate (Lopressor) 100 mg PO BID [facility] Last Admin: 08/18/19 08:04 Dose: 100 mg Verify Scop Patch 0 each TOP DAILY [facility] Last Admin: 08/18/19 08:05 Dose: Not Given Ondansetron HCl (Zofran) 4 mg IVPUSH Q6H PRN PRN Reason: Nausea/Vomiting Pantoprazole Sodium (Protonix) 40 mg PO Q24H [facility] Last Admin: 08/17/19 16:37 Dose: 40 mg Pioglitazone 45mg (Tab (Ptom)) 1 each PO BEDTIME [facility] Last Admin: 08/17/19 20:11 Dose: 1 each Scopolamine (Transderm-Scop) 1.5 mg TOP Q72H [facility] Last Admin: 08/17/19 08:44 Dose: 1.5 mg Senna/Docusate Sodium (Senna Plus) 1 tab PO BID [facility] Last Admin: 08/18/19 08:07 Dose: 1 tab Tamsulosin HCl (Flomax) 0.4 mg PO BEDTIME [facility] Last Admin: 08/17/19 20:10 Dose: 0.4 mg Discontinued Medications Acetaminophen (Tylenol Extra Strength) 1,000 mg PO ONETIME ONE Stop: 08/14/19 07:46 Last Admin: 08/14/19 08:08 Dose: 1,000 mg Alvimopan (Entereg) 12 mg PO ONETIME ONE Stop: 08/14/19 07:46 Last Admin: 08/14/19 08:08 Dose: 12 mg Bupivacaine HCl (Marcaine 0.5%) Confirm Administered Dose 50 ml .ROUTE .STK-MED ONE Stop: 08/16/19 09:51 Celecoxib (Celebrex) 200 mg PO ONETIME ONE Stop: 08/14/19 07:46 Last Admin: 08/14/19 08:08 Dose: 200 mg Ropivacaine 60 ml/Dexamethasone 8 mg/Epinephrine HCl 0.4 mg/ Sodium Chloride 17.6 ml 0 ml NERVRT ASDIRECTED [facility] Last Admin: 08/14/19 10:39 Dose: 80 syringe Dexamethasone (Dexamethasone) Confirm Administered Dose 4 mg .ROUTE .STK-MED ONE Stop: 08/14/19 10:33 Fentanyl (Sublimaze) Confirm Administered Dose 250 mcg .ROUTE .STK-MED ONE Stop: 08/14/19 10:32 Fentanyl (Sublimaze) Confirm Administered Dose 250 mcg .ROUTE .STK-MED ONE Stop: 08/14/19 11:42 Fentanyl (Sublimaze) Confirm Administered Dose 100 mcg .ROUTE .ST-MED ONE Stop: 08/16/19 09:54 Gabapentin (Neurontin) 300 mg PO ONETIME ONE Stop: 08/14/19 07:46 Last Admin: 08/14/19 08:08 Dose: 300 mg Glycopyrrolate (Robinul) Confirm Administered Dose 1 mg .ROUTE .STK-MED ONE Stop: 08/14/19 10:33 Cefoxitin Sodium 2 gm/ Sodium (Chloride) 50 mls @ 100 mls/hr IV ONETIME ONE Stop: 08/14/19 09:29 Last Admin: 08/14/19 10:39 Dose: 100 mls/hr Dextrose/Lactated Ringer's (Dextrose 5%-Lactated Ringers) 1,000 mls @ 100 mls/ hr IV ASDIRECTED [facility] Last Admin: 08/14/19 08:34 Dose: 100 mls/hr Ketamine HCl 50 mg/ Sodium (Chloride) 50 mls @ 24.3 mls/hr IV ASDIRECTED [facility] Lactated Ringer's (Ringers, Lactated) Confirm Administered Dose 1,000 mls @ as directed .ROUTE .ST-MED ONE Stop: 08/14/19 11:15 Acetaminophen 1,000 mg/ Premix 100 mls @ 400 mls/hr IV Q6H PRN PRN Reason: Pain (severe 7-10) Stop: 08/15/19 14:03 Last Admin: 08/15/19 00:47 Dose: 400 mls/hr Lactated Ringer's (Ringers, Lactated) 1,000 mls @ 75 mls/hr IV ASDIRECTED [facility] Last Admin: 08/15/19 05:05 Dose: 75 mls/hr Ibuprofen (Motrin) 400 mg PO Q4H [facility] Last Admin: 08/15/19 13:00 Dose: Not Given Ketamine HCl (Ketalar) 40 mg IV ASDIRECTED [facility] Lidocaine/Epinephrine (Xylocaine 1% With Epinephrine 1:100,000) Confirm Administered Dose 50 ml .ROUTE .STK-MED ONE Stop: 08/16/19 09:51 Midazolam HCl (Versed 1 Mg/Ml) Confirm Administered Dose 2 mg .ROUTE .STK-MED ONE Stop: 08/16/19 09:54 Neostigmine Methylsulfate (Neostigmine) Confirm Administered Dose 5 mg .ROUTE .STK-MED ONE Stop: 08/14/19 10:33 Ondansetron HCl (Zofran) Confirm Administered Dose 4 mg .ROUTE .STK-MED ONE Stop: 08/14/19 10:33 Pantoprazole Sodium (Protonix Iv) 40 mg IVPUSH Q24H [facility] Last Admin: 08/14/19 15:21 Dose: 40 mg Propofol (Diprivan 20 Ml) Confirm Administered Dose 200 mg .ROUTE .STK-MED ONE Stop: 08/14/19 10:33 Propofol (Diprivan 20 Ml) Confirm Administered Dose 200 mg .ROUTE .STK-MED ONE Stop: 08/16/19 09:54 Rocuronium [place] (Zemuron) Confirm Administered Dose 50 mg .ROUTE .STK-MED ONE Stop: 08/14/19 10:33 Rocuronium [place] (Zemuron) Confirm Administered Dose 50 mg .ROUTE .STK-MED ONE Stop: 08/14/19 11:42 Sodium Biphosphate/Sodium Phosphate (Fleet Enema) 133 ml RECTAL ONETIME ONE Stop: 08/14/19 09:09 Last Admin: 08/14/19 09:13 Dose: 133 ml
[2019-08-18] MEDS ORDERED: Ondansetron 4 MG Tab.DIS PO PRN (13:54)
== END 2019-08-18 14:40 | disposition home or self-care (01) | DRG 331 ==
LOC: JP.SDS 07:33 → JP.SDSSCHI 07:33 → EDSTATUS 09:15 → UNDOADMIN 14:03 → JP.SDSSCHI 14:03 → JP.2SS 14:03 → JP.SDSSCHI 14:04 → JP.2SS 14:04
PROVIDERS: ADMIT Surgery; ATTEND Surgery
PROC: 0DTN0ZZ Resection of Sigmoid Colon, Open Approach (ICD-10-PCS; principal; 2019-08-14)
PROC: 0WQF0ZZ Repair Abdominal Wall, Open Approach (ICD-10-PCS; 2019-08-16)
DX: C18.7 Malignant neoplasm of sigmoid colon (principal); I10 Essential (primary) hypertension; J45.909 Unspecified asthma, uncomplicated; E66.9 Obesity, unspecified; E11.9 Type 2 diabetes mellitus without complications; E78.5 Hyperlipidemia, unspecified; Z79.82 Long term (current) use of aspirin; Z79.4 Long term (current) use of insulin; Z79.899 Other long term (current) drug therapy; Z88.8 Allergy status to other drugs, medicaments and biological substances
CPT/HCPCS: 36415; 80048; 82962; 85027; 86850; 86900; 86901; 88305; 88309; 94762; 97162-GP; 97530-GP; 97535-GP; A9270-GY; C9113; J0131; J0171; J0694; J1100; J1650; J1815; J1815-GY; J2250; J2405; J2704; J2710; J2795; J3010; J3490; J7042; J7050; J7120

== ENCOUNTER 2019-09-19 07:05 | Day surgery (SDC) | payer MEDICARE ==
[~2019-09-19 07:05] MED LIST: Bupivacaine 0.5% 50 ML MDV ONE; Lidocaine 1% with EPINEPHrine 1:100,000 50 ML MDV ONE
[2019-09-19] MEDS ORDERED: Dextrose 5%-Lactated Ringers 1,000 ML IV SCH (08:00)
[2019-09-19] MEDS ORDERED: ceFAZolin 2 GM in Sodium Chloride 0.9% 50 ML IV ONE (08:15)
[2019-09-19] MEDS ORDERED: Propofol 200 MG/20 ML SDV ONE ×2 (08:40→09:29)
[2019-09-19] MEDS ORDERED: fentaNYL 100 MCG/2 ML SDV ONE (08:40)
[2019-09-19] MEDS ORDERED: Midazolam 1 MG/ML 2 ML SDV ONE (08:40)
--- NOTE | 2019-09-21 14:45 | OR ---
DATE OF PROCEDURE: 09/19/2019 SURGEON: Bora Boyle MD PREOPERATIVE DIAGNOSIS: Indication for central venous access. POSTOPERATIVE DIAGNOSIS: Indication for central venous access. OPERATIVE PROCEDURE: Placement of Bard PowerPort via left subclavian vein approach ([id number]). ANESTHESIA: Local plus IV sedation. INDICATION FOR PROCEDURE: This 68-year-old male recently underwent a resection for node- positive sigmoid colon carcinoma. The plan is to proceed with postoperative adjuvant chemotherapy and to facilitate that, a central venous access will be placed. Potential risks including bleeding, infection, pneumohemothorax, vascular injury, and possibility of the port becoming infected or occluded were all reviewed, and the patient wishes to proceed. DETAILS OF PROCEDURE: The patient was taken to the operating room and placed in supine position. IV sedation was administered, after which, the left subclavian area was anesthetized with 1% lidocaine and mixed with Marcaine. Left subclavian vein was then cannulated, guidewire passed and manipulated into the superior vena cava. Some additional local was then injected and transverse infraclavicular incision was made and carried down through the skin and subcutaneous tissue, and through the pectoralis major fascia. A subfascial pocket was then created bluntly. PowerPort was then assembled and flushed with heparinized saline, and the port was placed into the pocket. The catheter was cut such that the tip would lie in the area of the right atrial superior vena cava junction. Over the introducer and Peel-Away catheter, PowerPort catheter was then easily placed with fluoroscopic confirmation of adequate positioning being obtained. At this point, the incision was closed with 2 layers of 3-0 Vicryl stitch deep and a 4-0 Vicryl subcuticular stitch. This was then accessed and good blood return was confirmed and it was flushed once again with heparinized saline. The port was left to access as he is planning to have chemotherapy tomorrow. Dressing was applied. The patient was taken to the recovery room in satisfactory condition. Bora Boyle MD /[id number]
== END 2019-09-19 11:23 | disposition home or self-care (01) ==
LOC: JP.SDS 07:05
PROVIDERS: ATTEND Surgery
DX: C18.7 Malignant neoplasm of sigmoid colon (principal); I10 Essential (primary) hypertension; E11.9 Type 2 diabetes mellitus without complications
CPT/HCPCS: 36561; C1788; J0690; J1642; J2250; J2704; J3010; J3490; J7050; J7121

== ENCOUNTER 2019-11-10 15:39 | Inpatient (IN) | payer MEDICARE ==
[2019-11-10] MEDS ORDERED: Potassium Chloride 20 MEQ in Premix Bag 1 BAG IV ONE (16:58)
[2019-11-10] MEDS ORDERED: Potassium Chloride 20 MEQ Tab.ER PO ONE (16:59)
[2019-11-10] MEDS ORDERED: Sodium Chloride 0.9% 1,000 ML IV SCH (17:00)
--- NOTE | 2019-11-10 18:04 | EDM.PDOC ---
<Taylor Pastor - Last Filed: 11/10/19 18:21> ED HPI GENERAL MEDICAL PROBLEM - General Chief Complaint: General Stated Complaint: LOW POTASSIUM Time Seen by Provider: 11/10/19 17:53 Source of Information: Reports: Patient History Limitations: Reports: No Limitations - History of Present Illness INITIAL COMMENTS - FREE TEXT/NARRATIVE: pt has been having profuse diarrhea. He is on iv and oral chemo. The oral seemes to be driving the diarrhea. Oncology stopped the oral today. He was found to have a k of 2.8 so he is here for potassium. he was given some iv k last week also. He has been trying to eat foods high in k. Onset: Gradual, Other (pt has been having diarrhea for the pst 2 weeks. ) Duration: Hour(s):, Getting Worse Location: Reports: Other (pt states when he eats he immediately feels full) - Related Data Allergies Allergy/AdvReac Type Severity Reaction Status Date / Time gemfibrozil AdvReac Nausea and Verified 11/10/19 16:47 Vomiting Home Meds: Home Meds Aspirin [Halfprin] 81 mg PO DAILY 07/10/19 [History] Pioglitazone HCl 45 mg PO DAILY 07/10/19 [History] amLODIPine Besylate [Amlodipine Besylate] 10 mg PO DAILY 07/10/19 [History] Insulin Glarg,Human.Rec.Analog [Lantus Solostar] 30 units SUBCUT BEDTIME pen [Rx] Losartan [Cozaar] 100 mg PO DAILY tablet 08/18/19 [Rx] Metoprolol Tartrate [Lopressor] 100 mg PO BID tablet 08/18/19 [Rx] atorvaSTATin [Lipitor] 80 mg PO BEDTIME tablet 08/18/19 [Rx] cloNIDine [Catapres] 0.1 mg PO BID tablet 08/18/19 [Rx] glipiZIDE [Glucotrol XL] 10 mg PO DAILY tab.er 08/18/19 [Rx] hydroCHLOROthiazide [Hydrochlorothiazide] 25 mg PO DAILY tablet 08/18/19 [Rx] metFORMIN [Glucophage] 1,000 mg PO BIDMEALS tablet 08/18/19 [Rx] Capecitabine [Xeloda] 2,000 mg PO BID 09/15/19 [History] Prochlorperazine Maleate [Compazine] 10 mg PO Q6H PRN 09/15/19 [History] Diphenoxylate HCl/Atropine [Lomotil] 2 tab PO QID 11/10/19 [History] Ondansetron [Ondansetron ODT] 4 mg PO Q4HR PRN 11/10/19 [History] Past Medical History HEENT History: Reports: Cataract, Hard of Hearing Cardiovascular History: Reports: High Cholesterol, Hypertension Respiratory History: Reports: Asthma, Other (See Below) Other Respiratory History: environmental allergies Gastrointestinal History: Reports: Colon Polyp, Other (See Below) Other Gastrointestinal History: bowel resection Genitourinary History: Reports: BPH Musculoskeletal History: Reports: Arthritis Endocrine/Metabolic History: Reports: Diabetes, Type II, IDDM, Obesity/BMI 30+ Oncologic (Cancer) History: Reports: Colon Other Oncologic History: stage 3. lymph nodes - Infectious Disease History Infectious Disease History: Reports: Chicken Pox - Past Surgical History HEENT Surgical History: Reports: Cataract Surgery Other HEENT Surgeries/Procedures: polyps in nose GI Surgical History: Reports: Colon, Colonoscopy Other Oncologic Surgeries/Procedures: 08/14/2019 sigmoidectomy Social & Family History - Family History Family Medical History: Noncontributory - Tobacco Use Smoking Status *Q: Former Smoker Used Tobacco, but Quit: Yes Month/Year Tobacco Last Used: 24 yeares - Caffeine Use Caffeine Use: Reports: Soda - Recreational Drug Use Recreational Drug Use: No ED ROS GENERAL - Review of Systems Review Of Systems: See Below Constitutional: Reports: No Symptoms, Decreased Appetite HEENT: Reports: No Symptoms Respiratory: Reports: No Symptoms Cardiovascular: Reports: No Symptoms Endocrine: Reports: No Symptoms GI/Abdominal: Reports: Other (pt states that he eats and then he feels quite bloated. ) : Reports: No Symptoms Musculoskeletal: Reports: No Symptoms Skin: Reports: No Symptoms Neurological: Reports: No Symptoms ED EXAM, GENERAL - Physical Exam Exam: See Below Free Text/Narrative:: pt is a very pleasant alert pt who is having bad diarrhea from the oral chemo and he gets very bloated when he eats. d Exam Limited By: No Limitations General Appearance: Alert, Mild Distress Ears: Normal TMs Nose: Normal Inspection Throat/Mouth: Normal Inspection Head: Atraumatic Neck: Normal Inspection Respiratory/Chest: No Respiratory Distress Cardiovascular: Regular Rate, Rhythm GI/Abdominal: Soft, Other ( very mild tenderness) (Male) Exam: Deferred Rectal (Males) Exam: Deferred Back Exam: Normal Inspection Extremities: Normal Inspection Neurological: Alert, Oriented, Normal Cognition Psychiatric: Normal Affect Course - Vital Signs Last Recorded V/S: Last Vital Signs Temp 36.7 C 11/10/19 16:48 Pulse 74 11/10/19 16:48 Resp 17 11/10/19 16:48 BP 122/48 L 11/10/19 16:48 Pulse Ox 94 L 11/10/19 16:48 - Orders/Labs/Meds Orders: Active Orders 24 hr Category Date Time Status Heparin Sodium [Heparin Lock Flush 100 Units/ML] Med 11/10/19 19:16 Active 300 units FLUSH ASDIRECTED PRN Sodium Chloride 0.9% [Normal Saline] 1,000 ml Med 11/10/19 17:00 Active IV ASDIRECTED Medication Orders Heparin Sodium (Porcine) (Heparin Lock Flush 100 Units/Ml) 300 units FLUSH ASDIRECTED PRN PRN Reason: IV Use Last Admin: 11/10/19 19:32 Dose: 300 units Sodium Chloride (Normal Saline) 1,000 mls @ 999 mls/hr IV ASDIRECTED [facility] Last Admin: 11/10/19 17:10 Dose: 999 mls/hr Labs: Laboratory Tests 11/10/19 11/10/19 Range/Units 17:00 18:20 Potassium 2.4 L* (3.6-5.2) mmol/L Magnesium 1.8 (1.8-2.4) mg/dL Meds: Medications Generic Name Dose Route Start Last Admin Trade Name Freq PRN Reason Stop Dose Admin Heparin Sodium (Porcine) 300 units 11/10/19 19:16 11/10/19 19:32 Heparin Lock Flush 100 Units/Ml FLUSH 300 units ASDIRECTED PRN Administration IV Use Sodium Chloride 1,000 mls @ 999 mls/hr 11/10/19 17:00 11/10/19 17:10 Normal Saline IV 999 mls/hr ASDIRECTED [facility] Administration Discontinued Medications Generic Name Dose Route Start Last Admin Trade Name Freq PRN Reason Stop Dose Admin Famotidine 20 mg 11/10/19 18:11 11/10/19 19:32 Pepcid PO 11/10/19 18:12 20 mg ONETIME ONE Administration Potassium Chloride 20 meq/ 100 mls @ 50 mls/hr 11/10/19 16:58 11/10/19 17:10 Premix IV 11/10/19 18:57 50 mls/hr ONETIME ONE Administration Magnesium Oxide 400 mg 11/10/19 18:23 11/10/19 19:32 Magnesium Oxide PO 11/10/19 18:24 400 mg ONETIME ONE Administration Potassium Chloride 20 meq 11/10/19 16:59 11/10/19 17:09 Klor-Con M20 PO 11/10/19 17:00 20 meq ONETIME ONE Administration Potassium Chloride 40 meq 11/10/19 19:40 11/10/19 19:46 Potassium Chloride PO 11/10/19 19:41 40 meq ONETIME ONE Administration - Re-Assessments/Exams Free Text/Narrative Re-Assessment/Exam: 11/10/19 18:17 pt had a k of 2.8. He was given kcl 20 meq. He was given oral 20 meq. Pt will be given a liter of fluid. He was given pepcid 20 mg Departure - Departure Disposition: Refer to Observation Condition: Fair Clinical Impression: Hypokalemia, Hypomagnesemia - Discharge Information Instructions: Hypomagnesemia, Hypokalemia Referrals: Jacques Diallo ALUMNI COORDINATOR [Primary Care Provider] - Forms: ED Department Discharge Care Plan Goals: keep oncology appt, pepcid 20 mg bid for the next few days to see if pt is doing better. , kcl 20 meq daily mag oxide 400mg daily Sepsis Event Note - Evaluation Sepsis Screening Result: No Definite Risk - Focused Exam Vital Signs: Vital Signs Temp Pulse Resp BP Pulse Ox 11/10/19 16:48 36.7 C 74 17 122/48 L 94 L 11/10/19 16:43 36.7 C 74 17 122/48 L 94 L Date Exam was Performed: 11/10/19 Time Exam was Performed: 18:21 <Tavo Luo - Last Filed: 11/10/19 19:51> Course - Vital Signs Text/Narrative:: [facility], will see in ER. Departure - Departure Time of Disposition: 20:00 - Discharge Information *PRESCRIPTION DRUG MONITORING PROGRAM REVIEWED*: Not Applicable *COPY OF PRESCRIPTION DRUG MONITORING REPORT IN PATIENT RIOS: Not Applicable Sepsis Event Note - Focused Exam Date Exam was Performed: 11/10/19 Time Exam was Performed: 19:50
[2019-11-10] MEDS ORDERED: Famotidine 20 MG Tab PO ONE (18:11)
[2019-11-10] MEDS ORDERED: Magnesium Oxide 400 MG Tab PO ONE (18:23)
[2019-11-10] MEDS ORDERED: Potassium Chloride 10 MEQ Cap.ER PO ONE (19:40)
--- NOTE | 2019-11-10 20:22 | PCM.HP.2 ---
H&P History of Present Illness - General Date of Service: 11/10/19 Admit Problem/Dx: Hypokalemia Source of Information: Patient History Limitations: Reports: No Limitations - History of Present Illness Initial Comments - Free Text/Narative: Patient is a 69yo diabetic male who is actively being treated for cancer. He was receiving an infusion today and was found to have a K+ of 2.8. He was sent to the ER and given more potassium and his K+ dropped to 2.4. Patient has been having significant diarrhea for the last two weeks and says he feels very weak. he has lost 24 pounds in the last two weeks d/t being unable to eat and having loose stools. He says he has not been checked for any infectious causes of the diarrhea as it was presumed to be related to chemotherapy. He says that he doesn 't have abdominal pain, or vomiting, just diarrhea. He does have diabetes, HTN, and HLD as well. He says he has been having trouble taking his insulin or checking his blood sugar lately as well. Onset of Symptoms: Reports: Gradual Duration of Symptoms: Reports: Day(s):, Week(s): Location: Reports: Abdomen Improves with: Reports: None Worsens with: Reports: None - Related Data Allergies/Adverse Reactions: Allergies Allergy/AdvReac Type Severity Reaction Status Date / Time gemfibrozil AdvReac Nausea and Verified 11/10/19 16:47 Vomiting Home Medications: Home Meds Aspirin [Halfprin] 81 mg PO DAILY 07/10/19 [History] Pioglitazone HCl 45 mg PO DAILY 07/10/19 [History] amLODIPine Besylate [Amlodipine Besylate] 10 mg PO DAILY 07/10/19 [History] Insulin Glarg,Human.Rec.Analog [Lantus Solostar] 30 units SUBCUT BEDTIME pen [Rx] Losartan [Cozaar] 100 mg PO DAILY tablet 08/18/19 [Rx] Metoprolol Tartrate [Lopressor] 100 mg PO BID tablet 08/18/19 [Rx] atorvaSTATin [Lipitor] 80 mg PO BEDTIME tablet 08/18/19 [Rx] cloNIDine [Catapres] 0.1 mg PO BID tablet 08/18/19 [Rx] glipiZIDE [Glucotrol XL] 10 mg PO DAILY tab.er 08/18/19 [Rx] hydroCHLOROthiazide [Hydrochlorothiazide] 25 mg PO DAILY tablet 08/18/19 [Rx] metFORMIN [Glucophage] 1,000 mg PO BIDMEALS tablet 08/18/19 [Rx] Capecitabine [Xeloda] 2,000 mg PO BID 09/15/19 [History] Prochlorperazine Maleate [Compazine] 10 mg PO Q6H PRN 09/15/19 [History] Diphenoxylate HCl/Atropine [Lomotil] 2 tab PO QID 11/10/19 [History] Ondansetron [Ondansetron ODT] 4 mg PO Q4HR PRN 11/10/19 [History] Past Medical History HEENT History: Reports: Cataract, Hard of Hearing Cardiovascular History: Reports: High Cholesterol, Hypertension Respiratory History: Reports: Asthma, Other (See Below) Other Respiratory History: environmental allergies Gastrointestinal History: Reports: Colon Polyp, Other (See Below) Other Gastrointestinal History: bowel resection Genitourinary History: Reports: BPH Musculoskeletal History: Reports: Arthritis Endocrine/Metabolic History: Reports: Diabetes, Type II, IDDM, Obesity/BMI 30+ Oncologic (Cancer) History: Reports: Colon Other Oncologic History: stage 3. lymph nodes - Infectious Disease History Infectious Disease History: Reports: Chicken Pox - Past Surgical History HEENT Surgical History: Reports: Cataract Surgery Other HEENT Surgeries/Procedures: polyps in nose GI Surgical History: Reports: Colon, Colonoscopy Other Oncologic Surgeries/Procedures: 08/14/2019 sigmoidectomy Social & Family History - Family History Family Medical History: Noncontributory - Tobacco Use Smoking Status *Q: Former Smoker Used Tobacco, but Quit: Yes Month/Year Tobacco Last Used: 24 yeares - Caffeine Use Caffeine Use: Reports: Soda - Recreational Drug Use Recreational Drug Use: No H&P Review of Systems - Review of Systems: Review Of Systems: See Below Exam - Exam Exam: See Below - Vital Signs Vital Signs: Last Vital Signs Temp 36.7 C 11/10/19 16:48 Pulse 74 11/10/19 16:48 Resp 17 11/10/19 16:48 BP 122/48 L 11/10/19 16:48 Pulse Ox 94 L 11/10/19 16:48 Weight: 118.388 kg - Exam General: Alert, Oriented, Cooperative HEENT: PERRLA, Hearing Intact, Mucosa Moist & [place], Nares Patent, Normal Nasal Septum, Posterior Pharynx Clear, Conjunctiva Clear, EOMI, EACs Clear, TMs Clear Neck: Supple, Trachea Midline, 2 Lungs: Clear to Auscultation, Normal Respiratory Effort Cardiovascular: Regular Rate, Regular Rhythm GI/Abdominal Exam: Normal Bowel Sounds, Soft, Non-Tender, No Organomegaly, No Distention, No Abnormal Bruit, No Mass, Pelvis Stable (Male) Exam: Deferred Rectal (Males) Exam: Deferred Back Exam: Normal Inspection Extremities: Normal Inspection, Normal Range of Motion, Non-Tender, No Pedal Edema, Normal Capillary Refill Skin: Warm, Dry, Intact Neurological: Cranial Nerves Intact, Reflexes Equal Bilateral Neuro Extensive - Mental Status: Alert, Oriented x3, Normal Mood/Affect, Normal Cognition Neuro Extensive - Motor, Sensory, Reflexes: CN II-XII Intact, Normal Gait, Normal Reflexes Psychiatric: Alert, Normal Affect, Normal Mood - Patient Data Lab Results Last 24 hrs: Laboratory Results - last 24 hr 11/10/19 11/10/19 Range/Units 17:00 18:20 Potassium 2.4 L* (3.6-5.2) mmol/L Magnesium 1.8 (1.8-2.4) mg/dL Result Diagrams: 11/10/19 18:20 Sepsis Event Note - Evaluation Sepsis Screening Result: No Definite Risk Current Stage of Sepsis: Ruled Out Reason for Ruling Out Sepsis: patient has no s/s of systemic infectious process - Focused Exam Vital Signs: Vital Signs Temp Pulse Resp BP Pulse Ox 11/10/19 16:48 36.7 C 74 17 122/48 L 94 L 11/10/19 16:43 36.7 C 74 17 122/48 L 94 L Date Exam was Performed: 11/10/19 Time Exam was Performed: 21:18 *Q Meaningful Use (ADM) - VTE Risk Assess *Q Each Risk Factor Represents 2 Points: Age 60 - 74 Years, Malignancy (present or previous) Total Score 2 Point Risk Factors: 4 - Problem List (1) Hypokalemia SNOMED Code(s): 71101917 ICD Code: E87.6 - HYPOKALEMIA Status: Acute Current Visit: Yes Onset Date: ~10/27/19 Problem Details: Will replace slowly with NS with 40K at 125cc /hr, magnesium will be replaced if needed (2) Diarrhea SNOMED Code(s): 55746465 ICD Code: R19.7 - DIARRHEA, UNSPECIFIED Status: Acute Current Visit: Yes Onset Date: ~10/27/19 Problem Details: Uncertain if diarrhea is d/t chemotherapy or infectious organism. Norovirus has been present in the community and patient is immune compromised. Will get stool sample to determine or RO infection Qualifiers: Diarrhea type: unspecified type Qualified Code(s): R19.7 - Diarrhea, unspecified (3) Adenocarcinoma of colon SNOMED Code(s): 495173756, 813009045 ICD Code: C18.9 - MALIGNANT NEOPLASM OF COLON, UNSPECIFIED Status: Acute Current Visit: Yes Onset Date: Unknown Problem Details: patient actively taking chemotherapy for this condition (4) Essential hypertension SNOMED Code(s): 78048753 ICD Code: I10 - ESSENTIAL (PRIMARY) HYPERTENSION Status: Chronic Current Visit: Yes Onset Date: Unknown Problem Details: medications restarted, HCTZ held (5) Type 2 diabetes mellitus SNOMED Code(s): 47718315 ICD Code: E11.9 - TYPE 2 DIABETES MELLITUS WITHOUT COMPLICATIONS Status: Chronic Current Visit: Yes Onset Date: Unknown Problem Details: Patient's insulin decreased to 20u as he is not eating well. Metformin and actos held, glipizide resumed Qualifiers: Diabetes mellitus intermediate designer insulin use: with intermediate designer use Diabetes mellitus complication status: without complication Qualified Code(s): E11.9 - Type 2 diabetes mellitus without complications; Z79.4 - MCFP (current) use of insulin (6) Chemotherapy induced diarrhea SNOMED Code(s): 723365579 ICD Code: K52.1 - TOXIC GASTROENTERITIS AND COLITIS; T45.1X5A - ADVERSE EFFECT OF ANTINEOPLASTIC AND IMMUNOSUP DRUGS, INIT Status: Acute Current Visit: Yes Problem Details: uncertain etiology of diarrhea. will order stool tests to confirm Problem List Initiated/Reviewed/Updated: Yes Orders Last 24hrs: Resuscitation Status 11/10/19 20:56 Resuscitation Status Routine Resuscitation Status: Full Code Abbreviations used in this policy: *Cardiopulmonary Resuscitation (CPR) *Do Not Resuscitate (DNR) *Do Not Intubate (DNI) Code status categories recognized at [facility] 1. Full Code a. If a patient experiences cardiac or respiratory arrest, all resuscitation efforts (including CPR, defibrillation, and airway management) will be performed. b. Patients without a specific code status order other than Full Code will be assumed to be Full Code Status. Intubation CPR Defibrillation YES YES YES 2. DNR a. If there are changes in the patients' vital signs and condition, including respiratory arrest, treatment with medications and intubation, if indicated will be performed. b. If a patient experiences cardiac arrest, resuscitation efforts (CPR and Defibrillation) will not be performed. Intubation CPR Defibrillation YES NO NO 3. DNR/DNI a. If there are changes in the patient's vital signs and condition, including respiratory arrest, treatment with medications and noninvasive airway management/positive pressure ventilation, if indicated will be performed b. If a patient experiences a cardiac arrest, resuscitation efforts ( including CPR, defibrillation and intubation) will not be performed. Intubation CPR Defibrillation NO NO NO 4. DNR/DNI/Comfort Measures a. All medical and nursing interventions will be for the sole purpose of providing pain/symptom management for the patient. b. If a patient experiences a cardiac or respiratory arrest, resuscitation efforts (including CPR, defibrillation and intubation) will not be performed. Intubation CPR Defibrillation No NO NO ACTIVE MED ORDERS Generic Name Dose Route Start Last Admin Trade Name Freq PRN Reason Stop Dose Admin Acetaminophen 650 mg 11/10/19 20:56 Tylenol PO Q4H PRN Pain (Mild 1-3)/fever Aspirin 81 mg 11/11/19 09:00 Aspirin PO DAILY REPLACED BY [facility] Atorvastatin Calcium 80 mg 11/10/19 21:00 Lipitor PO BEDTIME REPLACED BY [facility] Clonidine HCl 0.1 mg 11/10/19 21:00 Catapres PO Q12H REPLACED BY [facility] Diphenoxylate HCl/Atropine 2 tab 11/10/19 20:32 Lomotil 0.025-2.5 Mg PO QID PRN Diarrhea Glipizide 5 mg 11/11/19 09:00 Glucotrol Xl PO DAILY REPLACED BY [facility] Heparin Sodium (Porcine) 300 units 11/10/19 19:16 11/10/19 19:32 Heparin Lock Flush 100 Units/Ml FLUSH 300 units ASDIRECTED PRN Administration IV Use Sodium Chloride 1,000 mls @ 999 mls/hr 11/10/19 17:00 11/10/19 17:10 Normal Saline IV 999 mls/hr ASDIRECTED SHELDON Administration Potassium Chloride/Sodium Chloride 1,000 mls @ 125 mls/hr 11/10/19 21:15 Normal Saline With 40 Meq Kcl IV ASDIRECTED REPLACED BY [facility] Ibuprofen 600 mg 11/10/19 20:56 Motrin PO Q6H PRN Pain/Fever Insulin Glargine 20 units 11/10/19 21:15 Lantus Solostar SUBCUT BEDTIME REPLACED BY [facility] Losartan Potassium 100 mg 11/11/19 09:00 Cozaar PO DAILY REPLACED BY [facility] Metoprolol Tartrate 100 mg 11/10/19 21:00 Lopressor PO Q12H [facility] Ondansetron HCl 4 mg 11/10/19 20:25 Zofran Odt PO Q4H PRN Nausea/Vomiting Prochlorperazine Maleate 10 mg 11/10/19 20:25 Compazine PO Q6H PRN Nausea/Vomiting ACTIVE NON-MED ORDERS/Dietary 11/11/19 Breakfast Regular Diet [DIET] Comment: Special Instructions: patient is preferring Fruit, milk ACTIVE NON-MED ORDERS/Care 11/10/19 20:56 Blood Glucose Check, Bedside [RC] BIDMEALS Oxygen Therapy [RC] PRN Maintain SpO2% greater than: 92 Oxygen Therapy Mode, Primary: Nasal Cannula Oxygen Flow Rate (L/min): 2 Oxygen Therapy Mode, Secondary: Nasal Cannula Flow Rate (L/min), Secondary: 4 VTE/DVT Education [RC] Per Unit Routine Vital Signs [RC] Q4H 11/10/19 21:15 Oxygen Therapy [RC] PRN Maintain SpO2% greater than: 92 Oxygen Therapy Mode, Primary: Nasal Cannula Oxygen Flow Rate (L/min): 2 Oxygen Therapy Mode, Secondary: Nasal Cannula VTE/DVT Education [RC] PER UNIT ROUTINE 11/10/19 21:17 Antiembolic Devices [RC] .Routine VTE/DVT Education [RC] Click to Edit ACTIVE NON-MED ORDERS/Orderable Interventions Antiembolic Devices Start: 11/10/19 21: 17 Text: Status: Active Freq: .Routine Protocol: Blood Glucose Check, Bedside Start: 11/10/19 20: 56 Freq: BIDMEALS Status: Active Protocol: BGL Collect Specimen: [id number] Start: 11/10/19 21: 02 Stool / Feces Status: Active Freq: ONCE Protocol: Education: VTE/DVT Topics Start: 11/10/19 20: 56 Freq: Per Unit Routine Status: Active Protocol: Education: VTE/DVT Topics Start: 11/10/19 21: 15 Freq: PER UNIT ROUTINE Status: Active Protocol: Education: VTE/DVT Topics Start: 11/10/19 21: 17 Freq: Click to Edit Status: Active Protocol: Oxygen Therapy Start: 11/10/19 20: 56 Freq: PRN Status: Active Protocol: Oxygen Therapy Start: 11/10/19 21: 15 Text: Titrate 2-6 L/min oxygen Status: Active Freq: PRN Protocol: Vital Signs Start: 11/10/19 20: 56 Text: Click to edit a change in frequency and times. Status: Active Freq: Q4H Protocol: VS.TEMP ACTIVE NON-MED ORDERS/LAB 11/10/19 21:02 C Diff [CLOS DIFFICILE PCR W/REFLEX] [RM] Stat AMADOU Source: Stool / Feces Specimen: Pre-Collection Label Specimen Description: Patient was Administered a Laxative in the Previous 48 Hours: No Patient has been tested for C-Diff in the last 7 days: No Patient has had a prior positive test in the last 30 days: No Sample has been collected within 24 hours of the order: Yes Has the patient had 4 or more loose stools in past 24 hours: Yes >4 loose/watery stools that conform to the container in the past 24 hours This test will reflex to confirmatory test if results are positive and/or indeterminate. Exceptions to this, please call laboratory. CULTURE STOOL + SHIGATOX [RM] Stat Comment: AMADOU Source: Stool / Feces Specimen: Pre-Collection Label Specimen Description: 11/10/19 21:19 MAGNESIUM [CHEM] Stat Comment: Specimen: Send someone from the department to collect 11/11/19 07:00 BASIC METABOLIC PANEL,BMP [CHEM] Routine Comment: Specimen: Send someone from the department to collect ACTIVE ORDERS/MEDS 11/10/19 17:00 Sodium Chloride 0.9% [Normal Saline] 1,000 ml IV ASDIRECTED 11/10/19 19:16 Heparin Sodium [Heparin Lock Flush 100 Units/ML] 300 units FLUSH ASDIRECTED PRN 11/10/19 20:25 Ondansetron [Zofran ODT] 4 mg PO Q4H PRN Prochlorperazine [Compazine] 10 mg PO Q6H PRN 11/10/19 20:32 Atropine/Diphenoxylate [Lomotil 0.025-2.5 MG] 2 tab PO QID PRN 11/10/19 20:56 Acetaminophen [Tylenol] 650 mg PO Q4H PRN Ibuprofen [Motrin] 600 mg PO Q6H PRN 11/10/19 21:00 Metoprolol Tartrate [Lopressor] 100 mg PO Q12H atorvaSTATin [Lipitor] 80 mg PO BEDTIME cloNIDine [Catapres] 0.1 mg PO Q12H 11/10/19 21:15 Insulin Glarg,Human.Rec.Analog [LantUS Solostar] 20 units SUBCUT BEDTIME Sodium Chloride 0.9% with KCl [Normal Saline with 40 mEq KCl] 1,000 ml IV ASDIRECTED 11/11/19 09:00 Aspirin 81 mg PO DAILY Losartan [Cozaar] 100 mg PO DAILY glipiZIDE [Glucotrol XL] 5 mg PO DAILY ACTIVE NON-MED ORDERS/Transfer 11/10/19 21:05 Patient Status Manage Transfer [TRANSFER] Routine Patient Status: Admit to Inpatient Admission Diagnosis/Problem: Hypokalemia Reason for Admit: hypokalemia Nurse Unit Type: Medical-Surgical Location Preference: med surg Admitting Physician: Melvi Arce Attending Physician: Murray Stevens Medicare 96 Hour Certification Statement: This Patient is Admitted for Inpatient Services and is Medically Appropriate and Meets Medical Necessity for Inpatient Admission. I Reasonably Expect the Patient will Require Inpatient Services that Span a Period of Over 2 Midnights. My Rationale for Medically Necessary Inpatient Care will be Found in the Admission History & Physical and Progress Notes. I Reasonably Expect the Patient to be Discharged or Transferred within 96 Hours After Admission to this [facility]. Provider Acknowledgement/Certification: Melvi Arce ACTIVE NON-MED ORDERS/Other 11/10/19 20:56 Patient Status [ADT] Routine Patient Status: Admit to Inpatient Admission Diagnosis/Problem: Hypokalemia Reason for Admit: hypokalemia Nurse Unit Type: Medical-Surgical Location Preference: med surg Admitting Physician: Melvi Arce Attending Physician: Murray Stevens Medicare 96 Hour Certification Statement: This Patient is Admitted for Inpatient Services and is Medically Appropriate and Meets Medical Necessity for Inpatient Admission. I Reasonably Expect the Patient will Require Inpatient Services that Span a Period of Over 2 Midnights. My Rationale for Medically Necessary Inpatient Care will be Found in the Admission History & Physical and Progress Notes. I Reasonably Expect the Patient to be Discharged or Transferred within 96 Hours After Admission to this Critical Access Hospital. Provider Acknowledgement/Certification: Melvi Arce 11/10/19 21:15 DVT/VTE Prophylaxis Reflex [OM.PC] Routine Comment: Physician Instructions: On Coumadin Therapy?: No - Mortality Measure Prognosis:: Good
[2019-11-10] MEDS ORDERED: Prochlorperazine 10 MG Tab PO PRN (20:25)
[2019-11-10] MEDS ORDERED: Ondansetron 4 MG Tab.DIS PO PRN (20:25)
[2019-11-10] MEDS ORDERED: Acetaminophen 325 MG Tab PO PRN (20:56)
[2019-11-10] MEDS ORDERED: Ibuprofen 600 MG Tab PO PRN (20:56)
[2019-11-10] MEDS ORDERED: Insulin Glargine,Human Rec. Analog 100 Units/ML 3 ML Pen SUBCUT SCH (21:00)
[2019-11-10] MEDS: Sodium Chloride 0.9% with KCl 1,000 ML IV SCH (22:15)
[2019-11-10] MEDS: Metoprolol Tartrate 25 MG Tab PO SCH (22:33)
[2019-11-10] MEDS: cloNIDine 0.1 MG Tab PO SCH (22:34)
[2019-11-10] MEDS: atorvaSTATin 20 MG Tab PO SCH (22:35)
[2019-11-10] MEDS: Magnesium Oxide 400 MG Tab PO SCH (22:35)
[2019-11-10] MEDS: Insulin Glargine,Human Rec. Analog 100 Units/ML 3 ML Pen SUBCUT SCH (22:39)
[2019-11-11] MEDS: Atropine/Diphenoxylate 0.025-2.5 MG Tab PO PRN (02:59)
[2019-11-11] MEDS: Sodium Chloride 0.9% with KCl 1,000 ML IV SCH ×2 (05:53→16:03)
[2019-11-11] MEDS ORDERED: Potassium Chloride 20 MEQ Tab.ER PO ONE ×2 (09:30→16:11)
--- NOTE | 2019-11-11 09:33 | PCM.PN ---
- General Info Date of Service: 11/11/19 Subjective Update: No acute events overnight following admission. Patient has ongoing diarrhea. He reports mild lower abdominal pain. Strength and energy are little better today. Not much of an appetite. He did have a fever this morning. No cough or shortness of breath. Potassium level is up to 3.2 this morning. Functional Status: Reports: Pain Controlled, Tolerating Diet - Review of Systems General: Reports: Fever Gastrointestinal: Reports: Abdominal Pain, Diarrhea - Patient Data Vitals - Most Recent: Last Vital Signs Temp 37.2 C 11/11/19 07:00 Pulse 74 11/11/19 07:00 Resp 18 11/11/19 07:00 BP 124/65 11/11/19 07:00 Pulse Ox 98 11/11/19 07:00 Weight - Most Recent: 120.429 kg I&O - Last 24 Hours: Intake & Output 11/10/19 11/11/19 11/11/19 22:59 06:59 14:59 Intake Total 1426 Balance 1426 Lab Results Last 24 Hours: Laboratory Results - last 24 hr 11/10/19 11/10/19 11/10/19 Range/Units 17:00 18:20 21:19 Sodium (140-148) mmol/L Potassium 2.4 L* (3.6-5.2) mmol/L Chloride (100-108) mmol/L Carbon Dioxide (21-32) mmol/L Anion Gap (5.0-14.0) mmol/L BUN (7-18) mg/dL Creatinine (0.8-1.3) mg/dL Est Cr Clr Drug Dosing mL/min Estimated GFR (MDRD) (>60) Glucose (74-106) mg/dL Calcium (8.5-10.1) mg/dL Magnesium 1.8 1.7 L (1.8-2.4) mg/dL 11/11/19 Range/Units 06:10 Sodium 135 L (140-148) mmol/L Potassium 3.2 L (3.6-5.2) mmol/L Chloride 100 (100-108) mmol/L Carbon Dioxide 26 (21-32) mmol/L Anion Gap 12.2 (5.0-14.0) mmol/L BUN 16 (7-18) mg/dL Creatinine 1.2 (0.8-1.3) mg/dL Est Cr Clr Drug Dosing 67.51 mL/min Estimated GFR (MDRD) > 60 (>60) Glucose 165 H (74-106) mg/dL Calcium 7.3 L D (8.5-10.1) mg/dL Magnesium 1.7 L (1.8-2.4) mg/dL David Results Last 24 Hours: Microbiology 11/10/19 00:31 Clostridioides difficile (PCR) - Final Stool / Feces Med Orders - Current: Current Medications Acetaminophen (Tylenol) 650 mg PO Q4H PRN PRN Reason: Pain (Mild 1-3)/fever Aspirin (Aspirin) 81 mg PO DAILY [facility] Atorvastatin Calcium (Lipitor) 80 mg PO BEDTIME [facility] Last Admin: 11/10/19 22:35 Dose: 80 mg Clonidine HCl (Catapres) 0.1 mg PO Q12H [facility] Last Admin: 11/10/19 22:34 Dose: 0.1 mg Diphenoxylate HCl/Atropine (Lomotil 0.025-2.5 Mg) 2 tab PO QID PRN PRN Reason: Diarrhea Last Admin: 11/11/19 02:59 Dose: 2 tab Glipizide (Glucotrol Xl) 5 mg PO DAILY [facility] Heparin Sodium (Porcine) (Heparin Lock Flush 100 Units/Ml) 300 units FLUSH ASDIRECTED PRN PRN Reason: IV Use Last Admin: 11/10/19 19:32 Dose: 300 units Magnesium Sulfate 2 gm/ Premix 50 mls @ 25 mls/hr IV Q6H [facility] Stop: 11/11/19 17:59 Potassium Chloride/Sodium Chloride (Normal Saline With 40 Meq Kcl) 1,000 mls @ 75 mls/hr IV ASDIRECTED [facility] Ibuprofen (Motrin) 600 mg PO Q6H PRN PRN Reason: Pain/Fever Insulin Glargine (Lantus Solostar) 20 units SUBCUT BEDTIME [facility] Last Admin: 11/10/19 22:39 Dose: 20 units Losartan Potassium (Cozaar) 100 mg PO DAILY [facility] Magnesium Oxide (Magnesium Oxide) 400 mg PO DAILY [facility] Last Admin: 11/10/19 22:35 Dose: 400 mg Metoprolol Tartrate (Lopressor) 100 mg PO Q12H [facility] Last Admin: 11/10/19 22:33 Dose: 100 mg Ondansetron HCl (Zofran Odt) 4 mg PO Q4H PRN PRN Reason: Nausea/Vomiting Prochlorperazine Maleate (Compazine) 10 mg PO Q6H PRN PRN Reason: Nausea/Vomiting Discontinued Medications Famotidine (Pepcid) 20 mg PO ONETIME ONE Stop: 11/10/19 18:12 Last Admin: 11/10/19 19:32 Dose: 20 mg Sodium Chloride (Normal Saline) 1,000 mls @ 999 [facility]ls[facility] Admin: 11/10/19 17:10 Dose: 999 mls/hr Potassium Chloride 20 meq/ (Premix) 100 mls @ 50 mls/hr IV ONETIME ONE Stop: 11/10/19 18:57 Last Admin: 11/10/19 17:10 Dose: 50 mls/hr Potassium Chloride/Sodium Chloride (Normal Saline With 40 Meq Kcl) 1,000 mls @ 125 mls[facility] Last Admin: 11/11/19 05:53 Dose: 125 mls/hr Insulin Glargine (Lantus Solostar) 30 units SUBCUT BEDTIME [facility] Last Admin: 11/10/19 22:41 Dose: Not Given Magnesium Oxide (Magnesium Oxide) 400 mg PO ONETIME ONE Stop: 11/10/19 18:24 Last Admin: 11/10/19 19:32 Dose: 400 mg Potassium Chloride (Klor-Con M20) 20 meq PO ONETIME ONE Stop: 11/10/19 17:00 Last Admin: 11/10/19 17:09 Dose: 20 meq Potassium Chloride (Potassium Chloride) 40 meq PO ONETIME ONE Stop: 11/10/19 19:41 Last Admin: 11/10/19 19:46 Dose: 40 meq Potassium Chloride (Klor-Con M20) 40 meq PO ONETIME ONE Stop: 11/11/19 09:31 - Exam Quality Assessment: No: Supplemental Oxygen General: Alert, Oriented, Cooperative, No Acute Distress Lungs: Clear to Auscultation, Normal Respiratory Effort Cardiovascular: Regular Rate, Regular Rhythm GI/Abdominal Exam: Normal Bowel Sounds, Soft, No Distention, Tender (mild lower abdomen). No: Guarding Extremities: No Pedal Edema. No: Increased Warmth Skin: Warm, Dry Psy/Mental Status: Alert, Normal Affect Sepsis Event Note - Evaluation Sepsis Screening Result: No Definite Risk - Focused Exam Vital Signs: Vital Signs Temp Pulse Pulse Resp BP BP Pulse Ox 11/11/19 07:00 37.2 C 74 18 124/65 98 11/11/19 03:01 38.1 C 65 16 153/62 H 97 11/11/19 00:06 37.0 C 93 18 106/69 96 11/10/19 22:34 111/57 L 11/10/19 22:33 101 H 111/57 L 11/10/19 22:07 37.1 C 101 H 16 111/57 L 97 Date Exam was Performed: 11/11/19 Time Exam was Performed: 16:29 - Problem List Review Problem List Initiated/Reviewed/Updated: Yes - My Orders Last 24 Hours: My Active Orders 11/11/19 09:31 Abdomen Pelvis w Cont [CT] Routine 11/11/19 10:00 Magnesium Sulfate/Water [Magnesium Sulfate in Water Premix] 2 gm Premix Bag 1 bag IV Q6H Sodium Chloride 0.9% with KCl [Normal Saline with 40 mEq KCl] 1,000 ml IV ASDIRECTED 11/11/19 16:00 POTASSIUM,K [CHEM] Timed 11/12/19 05:00 BASIC METABOLIC PANEL,BMP [CHEM] Timed CBC W/O DIFF,HEMOGRAM [HEME] Timed (1) - Plan Plan:: ASSESSMENT AND PLAN - Acute diarrhea-present for 2 weeks. He did have a fever this morning. C. difficile testing was negative and stool culture is pending. CT scan of the abdomen and pelvis revealed an enteritis in the lower abdomen and them suspicious this may be a bacterial source given his fever and immunosuppressed state. Duration of symptoms seems quite long for a virus. -Empiric ciprofloxacin -Imodium as needed for diarrhea -Follow-up stool culture Hypokalemia and hypomagnesemia-both secondary to poor intake and gastrointestinal losses. Levels are improving with supplementation. -Potassium supplementation this morning -repeat level this afternoon, replace as indicated -Continue magnesium supplementation -Repeat potassium in the morning Adenocarcinoma of the colon-he has been receiving chemotherapy but overall is doing fairly well. Type 2 diabetes mellitus-blood sugar control acceptable so far. Maintenance issues - - DVT prophylaxis -mechanical - GI prophylaxis -not indicated - Nutrition -regular Disposition -I would anticipate discharged home after the hospital stay Murray Stevens M.D.
[2019-11-11] MEDS ORDERED: Iopamidol 500 ML BOTTLE IV ONE (09:44)
[2019-11-11] MEDS ORDERED: Sodium Chloride 0.9% 90 ML IV SCH (09:45)
[2019-11-11] MEDS: Aspirin 81 MG Tab.Chew PO SCH (10:32)
[2019-11-11] MEDS: glipiZIDE 5 MG Tab.ER PO SCH (10:32)
[2019-11-11] MEDS: Losartan 50 MG Tab PO SCH (10:33)
[2019-11-11] MEDS: Magnesium Oxide 400 MG Tab PO SCH (10:33)
[2019-11-11] MEDS: Magnesium Sulfate/Water 2 GM in Premix Bag 1 BAG IV SCH ×2 (10:34→16:05)
[2019-11-11] MEDS: cloNIDine 0.1 MG Tab PO SCH ×2 (10:53→20:40)
[2019-11-11] MEDS: Metoprolol Tartrate 25 MG Tab PO SCH (10:54)
--- NOTE | 2019-11-11 11:51 | CRLCT ---
Indication: Fever. Abdominal pain. Diarrhea. Technique: Multiple contiguous axial images were obtained from the lung bases through the symphysis pubis after the intravenous administration of 150 milliliters of Isovue-300. Please note that all CT scans at this facility use dose modulation, iterative reconstruction, and/or weight-based dosing when appropriate to reduce radiation dose to as low as reasonably achievable. Comparison: None Findings: Small left pleural effusion is identified. Left basilar atelectasis is identified. The heart is normal in size. No pericardial effusions identified. The liver, spleen, gallbladder, pancreas, adrenals, and kidneys are normal. Bilateral renal cysts are identified. No intrahepatic biliary ductal dilatation is identified. No hydronephrosis is seen. In the pelvis, the prostate gland is enlarged. The urinary bladder is normal. A questionable stone is identified to the right of midline. Postoperative changes of the sigmoid colon are identified. Postoperative changes are identified within the small bowel in the mid/lower abdomen. Mild inflammatory changes are identified in the right lower abdomen. Multiple loops of distended bowel are identified. The small large bowel loops are fluid filled, but not dilated. The largest small bowel loop measures 2.5 cm in size. These findings can be seen with a nonspecific enteritis. No free air or free fluid is identified within the abdomen or pelvis. The aorta is normal in caliber. Degenerative changes of the spine are identified. Impression: Distended loops of small large bowel with nonspecific fat stranding identified within the mesentery in the right lower quadrant. The loops of small bowel do demonstrate mild bowel wall thickening in the right lower quadrant. These findings can be seen with a nonspecific enteritis. A developing small bowel obstruction cannot be completely excluded. Consideration should be given to repeat study in 24 hours of the patient is still experiencing pain. Please note that all CT scans at this facility use dose modulation, iterative reconstruction, and/or weight-based dosing when appropriate to reduce radiation dose to as low as reasonably achievable. Dictated by Norma Potts MD @ Nov 11 2019 11:44AM Signed by Dr. Norma Potts @ Nov 11 2019 11:49AM
[2019-11-11] MEDS ORDERED: Metoprolol Tartrate 50 MG Tab PO SCH (11:55)
[2019-11-11] MEDS ORDERED: Loperamide 2 MG Cap PO PRN (12:46)
[2019-11-11] MEDS: Ciprofloxacin in D5W 400 MG in Premix Bag 1 BAG IV SCH ×2 (13:15)
[2019-11-11] MEDS ORDERED: Potassium Chloride Riders 40 MEQ in Premix Bag 1 BAG IV ONE (16:22)
[2019-11-11] MEDS ORDERED: Potassium Chloride 20 MEQ, Lidocaine 1% 2 ML in Sodium Chloride 0.9% 100 ML IV SCH (16:30)
[2019-11-11] MEDS: Insulin Glargine,Human Rec. Analog 100 Units/ML 3 ML Pen SUBCUT SCH (20:38)
[2019-11-11] MEDS: Metoprolol Tartrate 50 MG Tab PO SCH (20:39)
[2019-11-11] MEDS: Lactobacillus Rhamnosus GG (Probiotic) Cap PO SCH (20:40)
[2019-11-11] MEDS: atorvaSTATin 20 MG Tab PO SCH (20:40)
[2019-11-11] MEDS ORDERED: Calcium Carbonate 500 MG Tab.Chew PO PRN (22:17)
[2019-11-12] MEDS: Ciprofloxacin in D5W 400 MG in Premix Bag 1 BAG IV SCH ×2 (01:48)
[2019-11-12] MEDS: Sodium Chloride 0.9% with KCl 1,000 ML IV SCH (05:31)
[2019-11-12] MEDS: Magnesium Oxide 400 MG Tab PO SCH (08:22)
[2019-11-12] MEDS: Losartan 50 MG Tab PO SCH (08:22)
[2019-11-12] MEDS: cloNIDine 0.1 MG Tab PO SCH (08:22)
[2019-11-12] MEDS: Aspirin 81 MG Tab.Chew PO SCH (08:22)
[2019-11-12] MEDS: Metoprolol Tartrate 50 MG Tab PO SCH (08:23)
[2019-11-12] MEDS: Lactobacillus Rhamnosus GG (Probiotic) Cap PO SCH (08:23)
[2019-11-12] MEDS: glipiZIDE 5 MG Tab.ER PO SCH (08:23)
[2019-11-12] MEDS ORDERED: Potassium Chloride 20 MEQ Tab.ER PO ONE (09:00)
[2019-11-12] MEDS: Potassium Chloride 20 MEQ, Lidocaine 1% 2 ML in Sodium Chloride 0.9% 100 ML IV SCH ×2 (09:18→11:43)
[2019-11-12] MEDS ORDERED: Pantoprazole 40 MG Tab.CR PO SCH (10:00)
[2019-11-12] MEDS: Atropine/Diphenoxylate 0.025-2.5 MG Tab PO PRN (11:52)
--- NOTE | 2019-11-12 13:57 | PCM.DCSUM1 ---
Discharge Summary - Hospital Course Brief History: 69-year-old male with history of type 2 diabetes mellitus, colon cancer with recent chemotherapy who presented with persistent diarrhea and dehydration. He was admitted for management of hypokalemia, hypomagnesemia and dehydration. Diagnosis: Stroke: No - Discharge Data Discharge Date: 11/12/19 Discharge Disposition: Home, Self-Care 01 Condition: Good - Referral to Home Health Primary Care Physician: Jacques Diallo NP - Discharge Diagnosis/Problem(s) (1) Enteritis SNOMED Code(s): 60775245 ICD Code: K52.9 - NONINFECTIVE GASTROENTERITIS AND COLITIS, UNSPECIFIED Status: Acute Current Visit: Yes (2) Diarrhea SNOMED Code(s): 36386280 ICD Code: R19.7 - DIARRHEA, UNSPECIFIED Status: Acute Current Visit: Yes Onset Date: ~10/27/19 Qualifiers: Diarrhea type: infectious Qualified Code(s): A09 - Infectious gastroenteritis and colitis, unspecified (3) Hypokalemia SNOMED Code(s): 15806627 ICD Code: E87.6 - HYPOKALEMIA Status: Acute Current Visit: Yes Onset Date: ~10/27/19 (4) Hypomagnesemia SNOMED Code(s): 305453905 ICD Code: E83.42 - HYPOMAGNESEMIA Status: Acute Current Visit: Yes (5) Type 2 diabetes mellitus SNOMED Code(s): 42090283 ICD Code: E11.9 - TYPE 2 DIABETES MELLITUS WITHOUT COMPLICATIONS Status: Chronic Current Visit: Yes Onset Date: Unknown Qualifiers: Diabetes mellitus script developer insulin use: with alf use Diabetes mellitus complication status: without complication Qualified Code(s): E11.9 - Type 2 diabetes mellitus without complications; 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 He has been suffering from diarrhea for a couple of weeks and had become dehydrated. Laboratory studies in the infusion center revealed a potassium of 2.8 and he was sent to the hospital for IV replacement and a recheck. After receiving some potassium in the emergency room as well as some IV fluids a level was rechecked and it was down to 2.4. At this point the decision was made to admit him to the hospital for additional supplementation. Overnight following admission he did receive additional IV supplementation as well as some oral supplementation for the potassium. He did receive oral magnesium supplementation as well. By the morning after admission his potassium has improved some but remains low. The morning after admission he did have a low- grade fever as well as some mild abdominal pain. We did elect to perform a CT scan for further evaluation of his diarrhea. It was noted that his stool culture and C. difficile testing was negative. The CT scan showed a nonspecific enteritis involving the small intestine in the right lower abdomen. I was suspicious this was bacterial given his fever and the persistent diarrhea in the setting of chemotherapy. We did start him on ciprofloxacin. Throughout the day we provided additional supplementation for the potassium. By the next morning he is feeling better. He has not had any fevers. Diarrhea seems to be slowing down a little. Potassium level has mated into the normal range and he did receive some additional supplementation even after that. He received IV magnesium supplementation yesterday. Appetite is slowly improving. He feels well enough for discharge home at this time. He will be on ciprofloxacin for 4 more days. He has follow-up with the infusion center in 2 days. I did encourage him to stop taking his hydrochlorothiazide, at least for the time being until the diarrhea resolves. He may not need to restart this if his blood pressure remains normal without it. - Patient Instructions Diet: Diabetic Diet Activity: As Tolerated Showering/Bathing: May Shower Notify Provider of: Fever, Increased Pain, Nausea and/or Vomiting Other/Special Instructions: 1. You were in the hospital for management of diarrhea which I suspect was caused by a bacterial infection of your small intestine. Your condition has been improving with antibiotic therapy. I do recommend ongoing antibiotic therapy with ciprofloxacin. You should take 500 mg twice daily for 8 more doses. Your first dose outside of the hospital will be due tonight. You may take this antibiotic with food but you should not take it with dairy products. You could also consider taking a probiotic capsule twice daily for the next 2 weeks to help restore normal bacteria to your intestine. A variety of these are available at your pharmacy and you can talk to the pharmacist about which one might be best for you. 2. Do not take your hydrochlorothiazide for the time being. This medication can lead to dehydration and low potassium. If your blood pressure rises over the next week at your follow-up visits we may need to restart this or find an alternative antihypertensive medication. 3. Continue your other home medications as previously prescribed. 4. Follow up with the Infusion Center as scheduled on Wednesday and with your primary care provider next week. - Discharge Plan *PRESCRIPTION DRUG MONITORING PROGRAM REVIEWED*: Not Applicable *COPY OF PRESCRIPTION DRUG MONITORING REPORT IN PATIENT RIOS: Not Applicable Prescriptions/Med Rec: Ciprofloxacin [Ciprofloxacin HCl] 500 mg PO BID #8 tab Home Medications: Home Meds Aspirin [Halfprin] 81 mg PO DAILY 07/10/19 [History] Pioglitazone HCl 45 mg PO DAILY 07/10/19 [History] amLODIPine Besylate [Amlodipine Besylate] 10 mg PO DAILY 07/10/19 [History] Insulin Glarg,Human.Rec.Analog [Lantus Solostar] 30 units SUBCUT BEDTIME pen [Rx] Losartan [Cozaar] 100 mg PO DAILY tablet 08/18/19 [Rx] Metoprolol Tartrate [Lopressor] 100 mg PO BID tablet 08/18/19 [Rx] atorvaSTATin [Lipitor] 80 mg PO BEDTIME tablet 08/18/19 [Rx] cloNIDine [Catapres] 0.1 mg PO BID tablet 08/18/19 [Rx] glipiZIDE [Glucotrol XL] 10 mg PO DAILY tab.er 08/18/19 [Rx] hydroCHLOROthiazide [Hydrochlorothiazide] 25 mg PO DAILY tablet 08/18/19 [Rx] metFORMIN [Glucophage] 1,000 mg PO BIDMEALS tablet 08/18/19 [Rx] Capecitabine [Xeloda] 2,000 mg PO BID 09/15/19 [History] Prochlorperazine Maleate [Compazine] 10 mg PO Q6H PRN 09/15/19 [History] Diphenoxylate HCl/Atropine [Lomotil] 2 tab PO QID 11/10/19 [History] Ondansetron [Ondansetron ODT] 4 mg PO Q4HR PRN 11/10/19 [History] Ciprofloxacin [Ciprofloxacin HCl] 500 mg PO BID #8 tab 11/12/19 [Rx] Oxygen Therapy Mode: Room Air Patient Handouts: Hypomagnesemia, Hypokalemia Referrals: Roiko,Jacques, TRAINING DEVELOPMENT DIRECTOR [Primary Care Provider] - (f/u as scheduled next week ) - Discharge Summary/Plan Comment DC Time >30 min.: No - Patient Data Vitals - Most Recent: Last Vital Signs Temp 36.7 C 11/12/19 13:00 Pulse 68 11/12/19 13:00 Resp 16 11/12/19 13:00 BP 115/56 L 11/12/19 13:00 Pulse Ox 96 11/12/19 13:00 Weight - Most Recent: 120.429 kg I&O - Last 24 hours: Intake & Output 11/11/19 11/12/19 11/12/19 22:59 06:59 14:59 Intake Total 1733 Balance 1733 Lab Results - Last 24 hrs: Laboratory Results - last 24 hr 11/11/19 11/12/19 11/12/19 Range/Units 16:00 04:15 04:15 WBC 4.7 (4.5-11.0) K/uL RBC 3.86 L (4.30-5.90) M/uL Hgb 11.8 L (12.0-15.0) g/dL Hct 34.1 L (40.0-54.0) % MCV 88 (80-98) fL MCH 31 (27-31) pg MCHC 35 (32-36) % Plt Count 102 L (150-400) K/uL Sodium 136 L (140-148) mmol/L Potassium 2.8 L* 3.6 (3.6-5.2) mmol/L Chloride 103 (100-108) mmol/L Carbon Dioxide 25 (21-32) mmol/L Anion Gap 11.6 (5.0-14.0) mmol/L BUN 10 (7-18) mg/dL Creatinine 1.1 (0.8-1.3) mg/dL Est Cr Clr Drug Dosing 73.65 mL/min Estimated GFR (MDRD) > 60 (>60) Glucose 159 H (74-106) mg/dL Calcium 7.4 L (8.5-10.1) mg/dL AMADOU Results - Last 24 hrs: Microbiology 11/10/19 00:31 Stool Culture - Preliminary Stool / Feces NORMAL ENTERIC JONNY 1 DAY Shiga Toxin I - Final NEGATIVE FOR SHIGA TOXIN 1 Shiga Toxin II - Final NEGATIVE FOR SHIGA TOXIN 2 REFERENCE RANGE: NEGATIVE Clostridioides difficile (PCR) - Final Med Orders - Current: Current Medications Acetaminophen (Tylenol) 650 mg PO Q4H PRN PRN Reason: Pain (Mild 1-3)/fever Aspirin (Aspirin) 81 mg PO DAILY [facility] Last Admin: 11/12/19 08:22 Dose: 81 mg Atorvastatin Calcium (Lipitor) 80 mg PO BEDTIME [facility] Last Admin: 11/11/19 20:40 Dose: 80 mg Calcium Carbonate/Glycine (Tums) 500 mg PO Q2H PRN PRN Reason: Indigestion Last Admin: 11/11/19 22:32 Dose: 500 mg Clonidine HCl (Catapres) 0.1 mg PO Q12H [facility] Last Admin: 11/12/19 08:22 Dose: 0.1 mg Diphenoxylate HCl/Atropine (Lomotil 0.025-2.5 Mg) 2 tab PO QID PRN PRN Reason: Diarrhea Last Admin: 11/12/19 11:52 Dose: 2 tab Glipizide (Glucotrol Xl) 5 mg PO DAILY [facility] Last Admin: 11/12/19 08:23 Dose: 5 mg Heparin Sodium (Porcine) (Heparin Lock Flush 100 Units/Ml) 300 units FLUSH ASDIRECTED PRN PRN Reason: IV Use Last Admin: 11/10/19 19:32 Dose: 300 units Potassium Chloride/Sodium Chloride (Normal Saline With 40 Meq Kcl) 1,000 mls @ 75 mls/hr IV ASDIRECTED [facility] Last Admin: 11/12/19 05:31 Dose: 75 mls/hr Ciprofloxacin/Dextrose 400 mg/ (Premix) 200 mls @ 200 mls/hr IV Q12H [facility] Last Admin: 11/12/19 01:48 Dose: 200 mls/hr Potassium Chloride 20 meq/Lidocaine HCl 2 ml/ Sodium Chloride 112 mls @ 56 mls/ hr IV Q2H [facility] Stop: 11/12/19 13:59 Last Admin: 11/12/19 11:43 Dose: 56 mls/hr Ibuprofen (Motrin) 600 mg PO Q6H PRN PRN Reason: Pain/Fever Insulin Glargine (Lantus Solostar) 20 units SUBCUT BEDTIME [facility] Last Admin: 11/11/19 20:38 Dose: 20 units Lactobacillus Rhamnosus (Culturelle) 1 cap PO BID [facility] Last Admin: 11/12/19 08:23 Dose: 1 cap Loperamide HCl (Imodium) 4 mg PO Q6H PRN PRN Reason: diarrhea Last Admin: 11/12/19 08:22 Dose: 4 mg Losartan Potassium (Cozaar) 100 mg PO DAILY [facility] Last Admin: 11/12/19 08:22 Dose: 100 mg Magnesium Oxide (Magnesium Oxide) 400 mg PO DAILY [facility] Last Admin: 11/12/19 08:22 Dose: 400 mg Metoprolol Tartrate (Lopressor) 100 mg PO BID [facility] Last Admin: 11/12/19 08:23 Dose: 100 mg Ondansetron HCl (Zofran Odt) 4 mg PO Q4H PRN PRN Reason: Nausea/Vomiting Pantoprazole Sodium (Protonix) 40 mg PO ACBREAKFAST [facility] Last Admin: 11/12/19 09:39 Dose: 40 mg Prochlorperazine Maleate (Compazine) 10 mg PO Q6H PRN PRN Reason: Nausea/Vomiting Discontinued Medications Famotidine (Pepcid) 20 mg PO ONETIME ONE Stop: 11/10/19 18:12 Last Admin: 11/10/19 19:32 Dose: 20 mg Sodium Chloride (Normal Saline) 1,000 mls @ 999 mls/hr IV ASDIRECTED [facility] Last Admin: 11/10/19 17:10 Dose: 999 mls/hr Potassium Chloride 20 meq/ (Premix) 100 mls @ 50 mls/hr IV ONETIME ONE Stop: 11/10/19 18:57 Last Admin: 11/10/19 17:10 Dose: 50 mls/hr Potassium Chloride/Sodium Chloride (Normal Saline With 40 Meq Kcl) 1,000 mls @ 125 mls/hr IV ASDIRECTED [facility] Last Infusion: 11/11/19 14:14 Dose: Infused Magnesium Sulfate 2 gm/ Premix 50 mls @ 25 mls/hr IV Q6H [facility] Stop: 11/11/19 17:59 Last Admin: 11/11/19 16:05 Dose: 25 mls/hr Sodium Chloride (Normal Saline) 90 mls @ 3.5 mls/sec IV ASDIRECTED [facility] Last Admin: 11/11/19 10:11 Dose: 3.5 mls/sec Potassium Chloride 20 meq/Lidocaine HCl 2 ml/ Sodium Chloride 112 mls @ 50 mls/ hr IV Q2H [facility] Stop: 11/11/19 20:29 Potassium Chloride 40 meq/ (Premix) 100 mls @ 25 mls/hr IV ONETIME ONE Stop: 11/11/19 20:21 Last Admin: 11/11/19 16:32 Dose: 25 mls/hr Insulin Glargine (Lantus Solostar) 30 units SUBCUT BEDTIME [facility] Last Admin: 11/10/19 22:41 Dose: Not Given Iopamidol (Isovue-300 (61%)) 150 ml IV ONETIME ONE Stop: 11/11/19 09:45 Last Admin: 11/11/19 10:11 Dose: 150 ml Magnesium Oxide (Magnesium Oxide) 400 mg PO ONETIME ONE Stop: 11/10/19 18:24 Last Admin: 11/10/19 19:32 Dose: 400 mg Metoprolol Tartrate (Lopressor) 100 mg PO Q12H [facility] Last Admin: 11/11/19 10:54 Dose: 100 mg Metoprolol Tartrate (Lopressor) 100 mg PO Q12H [facility] Last Admin: 11/11/19 14:12 Dose: Not Given Potassium Chloride (Klor-Con M20) 20 meq PO ONETIME ONE Stop: 11/10/19 17:00 Last Admin: 11/10/19 17:09 Dose: 20 meq Potassium Chloride (Potassium Chloride) 40 meq PO ONETIME ONE Stop: 11/10/19 19:41 Last Admin: 11/10/19 19:46 Dose: 40 meq Potassium Chloride (Klor-Con M20) 40 meq PO ONETIME ONE Stop: 11/11/19 09:31 Last Admin: 11/11/19 10:32 Dose: 40 meq Potassium Chloride (Klor-Con M20) 40 meq PO ONETIME ONE Stop: 11/11/19 16:12 Last Admin: 11/11/19 16:28 Dose: 40 meq Potassium Chloride (Klor-Con M20) 20 meq PO ONETIME ONE Stop: 11/12/19 09:01 Last Admin: 11/12/19 09:19 Dose: 20 meq - Exam Quality Assessment: Denies: Supplemental Oxygen General: Reports: Alert, Oriented, Cooperative, No Acute Distress Lungs: Reports: Normal Respiratory Effort Cardiovascular: Reports: Regular Rate, Regular Rhythm GI/Abdominal Exam: Soft, No Distention
== END 2019-11-12 14:35 | disposition home or self-care (01) | DRG 641 ==
LOC: JP.ED 15:39 → JP.ICU 20:56
PROVIDERS: ADMIT Internal Medicine; ATTEND Internal Medicine
DX: E87.6 Hypokalemia (principal); K52.1 Toxic gastroenteritis and colitis; C18.9 Malignant neoplasm of colon, unspecified; E78.00 Pure hypercholesterolemia, unspecified; T45.1X5A Adverse effect of antineoplastic and immunosuppressive drugs, initial encounter; E86.0 Dehydration; Z87.898 Personal history of other specified conditions; E83.42 Hypomagnesemia; J45.909 Unspecified asthma, uncomplicated; N40.0 Benign prostatic hyperplasia without lower urinary tract symptoms; M19.90 Unspecified osteoarthritis, unspecified site; E66.9 Obesity, unspecified; Z85.038 Personal history of other malignant neoplasm of large intestine; E11.9 Type 2 diabetes mellitus without complications; I10 Essential (primary) hypertension; Z66 Do not resuscitate; E78.5 Hyperlipidemia, unspecified; H91.90 Unspecified hearing loss, unspecified ear; Z88.8 Allergy status to other drugs, medicaments and biological substances; Z79.82 Long term (current) use of aspirin; Z79.4 Long term (current) use of insulin; Z79.899 Other long term (current) drug therapy; Z86.010 Personal history of colon polyps; Z90.49 Acquired absence of other specified parts of digestive tract; Z98.49 Cataract extraction status, unspecified eye; Z87.891 Personal history of nicotine dependence; Z68.35 Body mass index [BMI] 35.0-35.9, adult
CPT/HCPCS: 36415; 83735; 84132; 87046; 87493; 87899 ×2; A9270 ×4; J1642; J3480; J7030; 74177; 80048; 82962; 85027; 96365; 96366; 99284; 99285-25; C1751; J0744; J1815-GY; J2001; J3475; J7050; Q9967

== ENCOUNTER 2019-11-13 19:48 | Inpatient (IN) | payer MEDICARE ==
[2019-11-13] MEDS ORDERED: Lactated Ringers 1,000 ML IV ONE (20:06)
--- NOTE | 2019-11-13 20:14 | EDM.PDOC ---
ED HPI GENERAL MEDICAL PROBLEM - General Chief Complaint: General Stated Complaint: MEDICAL Time Seen by Provider: 11/13/19 20:11 Source of Information: Reports: Patient, Old Records, RN History Limitations: Reports: No Limitations - History of Present Illness INITIAL COMMENTS - FREE TEXT/NARRATIVE: 69 yo male with a pHx of NIDDM and colon CA was recently admitted and sent home yesterday for diarrhea, hypokalemia, and hypomagnesemia. At discharge he was sent home also on Cipro for the diarrhea. Says today that he had a fever at home. Stool tests during his last admission were unremarkable including for C.diff. Temperature has been gradually climbing today. Has a port. Didn't want to eat or get out of bed today. No respiratory or urinary sx's. Diarrhea is about the same as when he went home. Had been getting chemo via his port for the colon CA. Has chills since late afternoon today. Onset: Gradual Duration: Hour(s):, Getting Worse Location: Reports: Generalized Quality: Reports: Other (no pain reported) Severity: Moderate Improves with: Reports: Medication (acetaminophen) Worsens with: Reports: Other (? time) Context: Reports: Other (See HPI) Associated Symptoms: Reports: Fever/Chills, Loss of Appetite, Malaise, Weakness , Other (diarrhea). Denies: Cough, Rash, Seizure, Shortness of Breath Treatments [employer]: Reports: Acetaminophen, Other (see below) (Cipro) - Related Data Allergies Allergy/AdvReac Type Severity Reaction Status Date / Time gemfibrozil AdvReac Nausea and Verified 11/13/19 19:52 Vomiting Home Meds: Home Meds Aspirin [Halfprin] 81 mg PO DAILY 07/10/19 [History] Pioglitazone HCl 45 mg PO DAILY 07/10/19 [History] amLODIPine Besylate [Amlodipine Besylate] 10 mg PO DAILY 07/10/19 [History] Insulin Glarg,Human.Rec.Analog [Lantus Solostar] 30 units SUBCUT BEDTIME pen [Rx] Losartan [Cozaar] 100 mg PO DAILY tablet 08/18/19 [Rx] Metoprolol Tartrate [Lopressor] 100 mg PO BID tablet 08/18/19 [Rx] atorvaSTATin [Lipitor] 80 mg PO BEDTIME tablet 08/18/19 [Rx] cloNIDine [Catapres] 0.1 mg PO BID tablet 08/18/19 [Rx] glipiZIDE [Glucotrol XL] 10 mg PO DAILY tab.er 08/18/19 [Rx] hydroCHLOROthiazide [Hydrochlorothiazide] 25 mg PO DAILY tablet 08/18/19 [Rx] metFORMIN [Glucophage] 1,000 mg PO BIDMEALS tablet 08/18/19 [Rx] Capecitabine [Xeloda] 2,000 mg PO BID 09/15/19 [History] Prochlorperazine Maleate [Compazine] 10 mg PO Q6H PRN 09/15/19 [History] Diphenoxylate HCl/Atropine [Lomotil] 2 tab PO QID 11/10/19 [History] Ondansetron [Ondansetron ODT] 4 mg PO Q4HR PRN 11/10/19 [History] Ciprofloxacin HCl [Cipro] 500 mg PO BID 11/13/19 [History] Past Medical History HEENT History: Reports: Cataract, Hard of Hearing Cardiovascular History: Reports: High Cholesterol, Hypertension Respiratory History: Reports: Asthma, Other (See Below) Other Respiratory History: environmental allergies Gastrointestinal History: Reports: Colon Polyp, Other (See Below) Other Gastrointestinal History: bowel resection Genitourinary History: Reports: BPH Musculoskeletal History: Reports: Arthritis Endocrine/Metabolic History: Reports: Diabetes, Type II, IDDM, Obesity/BMI 30+ Oncologic (Cancer) History: Reports: Colon Other Oncologic History: stage 3. lymph nodes - Infectious Disease History Infectious Disease History: Reports: Chicken Pox, Measles, Mumps - Past Surgical History HEENT Surgical History: Reports: Cataract Surgery Other HEENT Surgeries/Procedures: polyps in nose GI Surgical History: Reports: Colon, Colonoscopy Other Oncologic Surgeries/Procedures: 08/14/2019 sigmoidectomy Social & Family History - Family History Family Medical History: Noncontributory - Tobacco Use Smoking Status *Q: Former Smoker Used Tobacco, but Quit: Yes Month/Year Tobacco Last Used: 1995 - Caffeine Use Caffeine Use: Reports: Coffee, Soda - Recreational Drug Use Recreational Drug Use: No ED ROS GENERAL - Review of Systems Review Of Systems: See Below Constitutional: Reports: Fever, Chills, Malaise, Weakness, Decreased Appetite. Denies: Diaphoresis HEENT: Reports: No Symptoms Respiratory: Reports: No Symptoms Cardiovascular: Reports: No Symptoms Endocrine: Reports: No Symptoms GI/Abdominal: Reports: Diarrhea. Denies: Abdominal Pain, Black Stool, Bloody Stool, Constipation, Distension, Hematemesis, Hematochezia, Melena, Nausea, Vomiting : Reports: No Symptoms Musculoskeletal: Reports: No Symptoms Skin: Reports: No Symptoms Neurological: Reports: No Symptoms Psychiatric: Reports: No Symptoms ED EXAM, GENERAL - Physical Exam Exam: See Below Exam Limited By: No Limitations General Appearance: Alert, WD/WN, Mild Distress, Obese, Other (somewhat listless ) Eye Exam: Bilateral Eye: Normal Inspection Ears: Normal External Exam, Normal Canal, Hearing Grossly Normal Ear Exam: Bilateral Ear: Auricle Normal, Canal Normal, TM normal Nose: Normal Inspection, No Blood Throat/Mouth: Normal Inspection, Normal Lips, Normal Voice, No Airway Compromise , Other (dry oral mucosa) Head: Atraumatic, Normocephalic Neck: Normal Inspection Respiratory/Chest: No Respiratory Distress, Lungs Clear, Normal Breath Sounds, No Accessory Muscle Use Cardiovascular: Regular Rate, Rhythm, No Edema, Tachycardia GI/Abdominal: Normal Bowel Sounds, Soft, Non-Tender, No Distention Back Exam: Normal Inspection. No: CVA Tenderness (R), CVA Tenderness (L) Extremities: Normal Inspection, Normal Range of Motion, Non-Tender, No Pedal Edema Neurological: Alert, Oriented, CN II-XII Intact, Normal Cognition, No Motor/ Sensory Deficits Psychiatric: Normal Affect, Normal Mood Skin Exam: Warm, Dry, Intact, Normal Color, No Rash Course - Vital Signs Text/Narrative:: Dr. Dominic anderson @ [id number] Last Recorded V/S: Last Vital Signs Temp 37.3 C 11/13/19 19:59 Pulse 101 H 11/13/19 19:59 Resp 14 11/13/19 19:59 BP 110/65 11/13/19 19:59 Pulse Ox 96 11/13/19 19:59 - Orders/Labs/Meds Orders: Active Orders 24 hr Category Date Time Status CULTURE BLOOD [BC] Stat Lab 11/13/19 20:20 Received CULTURE BLOOD [BC] Stat Lab 11/13/19 21:19 Ordered UA W/MICROSCOPIC [URIN] Stat Lab 11/13/19 20:08 Ordered Magnesium Sulfate/Water [Magnesium Sulfate in Water Med 11/13/19 21:13 Active Premix] 2 gm Premix Bag 1 bag IV ONETIME NS + KCl 20mEq/L [Normal Saline with 20 mEq KCl] 1,000 Med 11/13/19 21:15 Active ml IV ASDIRECTED Potassium Chloride [KCL 20 MEQ in Water 100 ML] 20 meq Med 11/13/19 21:11 Active Premix Bag 1 bag IV ONETIME Medication Orders Potassium Chloride 20 meq/ (Premix) 100 mls @ 50 mls/hr IV ONETIME ONE Stop: 11/13/19 23:10 Potassium Chloride/Sodium Chloride (Normal Saline With 20 Meq Kcl) 1,000 mls @ 500 mls/hr IV ASDIRECTED SHELDON Magnesium Sulfate 2 gm/ Premix 50 mls @ 12.5 mls/hr IV ONETIME ONE Stop: 11/14/19 01:12 Labs: Laboratory Tests 11/13/19 11/13/19 11/13/19 Range/Units 20:20 20:20 20:20 WBC 4.8 (4.5-11.0) K/uL RBC 4.17 L (4.30-5.90) M/uL Hgb 12.7 (12.0-15.0) g/dL Hct 36.4 L (40.0-54.0) % MCV 87 (80-98) fL MCH 31 (27-31) pg MCHC 35 (32-36) % Plt Count 125 L (150-400) K/uL Sodium 131 L (140-148) mmol/L Potassium 2.5 L* (3.6-5.2) mmol/L Chloride 100 (100-108) mmol/L Carbon Dioxide 18 L (21-32) mmol/L Anion Gap 15.5 H (5.0-14.0) mmol/L BUN 9 (7-18) mg/dL Creatinine 1.3 (0.8-1.3) mg/dL Est Cr Clr Drug Dosing 62.32 mL/min Estimated GFR (MDRD) 55 L (>60) Glucose 176 H (74-106) mg/dL Lactic Acid 2.6 H (0.4-2.0) mmol/L Calcium 7.5 L (8.5-10.1) mg/dL Magnesium 1.6 L (1.8-2.4) mg/dL Meds: Medications Generic Name Dose Route Start Last Admin Trade Name Freq PRN Reason Stop Dose Admin Potassium Chloride 20 meq/ 100 mls @ 50 mls/hr 11/13/19 21:11 Premix IV 11/13/19 23:10 ONETIME ONE Potassium Chloride/Sodium Chloride 1,000 mls @ 500 mls/hr 11/13/19 21:15 Normal Saline With 20 Meq Kcl IV ASDIRECTED SHELDON Magnesium Sulfate 2 gm/ Premix 50 mls @ 12.5 mls/hr 11/13/19 21:13 IV 11/14/19 01:12 ONETIME ONE Discontinued Medications Generic Name Dose Route Start Last Admin Trade Name Cary PRN Reason Stop Dose Admin Lactated Ringer's 1,000 mls @ 1,000 mls/hr 11/13/19 20:06 11/13/19 20:23 Ringers, Lactated IV 11/13/19 21:05 1,000 mls/hr BOLUS ONE Administration Departure - Departure Time of Disposition: 21:30 Disposition: Admitted As Inpatient 68 Condition: Fair Clinical Impression: Hypokalemia, Hypomagnesemia, Elevated lactic acid level Diarrhea Qualifiers: Diarrhea type: infectious Qualified Code(s): A09 - Infectious gastroenteritis and colitis, unspecified - Discharge Information *PRESCRIPTION DRUG MONITORING PROGRAM REVIEWED*: Not Applicable *COPY OF PRESCRIPTION DRUG MONITORING REPORT IN PATIENT RIOS: Not Applicable Referrals: Jacques Diallo NP [Primary Care Provider] - Forms: ED Department Discharge Sepsis Event Note - Evaluation Sepsis Screening Result: Possible Sepsis Risk - Focused Exam Vital Signs: Vital Signs Temp Pulse Resp BP Pulse Ox 11/13/19 19:59 37.3 C 101 H 14 110/65 96 Date Exam was Performed: 11/13/19 Time Exam was Performed: 21:20 - My Orders Last 24 Hours: My Active Orders 11/13/19 20:08 UA W/MICROSCOPIC [URIN] Stat 11/13/19 20:20 CULTURE BLOOD [BC] Stat 11/13/19 21:11 Potassium Chloride [KCL 20 MEQ in Water 100 ML] 20 meq Premix Bag 1 bag IV ONETIME 11/13/19 21:13 Magnesium Sulfate/Water [Magnesium Sulfate in Water Premix] 2 gm Premix Bag 1 bag IV ONETIME 11/13/19 21:15 NS + KCl 20mEq/L [Normal Saline with 20 mEq KCl] 1,000 ml IV ASDIRECTED 11/13/19 21:19 CULTURE BLOOD [BC] Stat - Assessment/Plan Last 24 Hours: My Active Orders 11/13/19 20:08 UA W/MICROSCOPIC [URIN] Stat 11/13/19 20:20 CULTURE BLOOD [BC] Stat 11/13/19 21:11 Potassium Chloride [KCL 20 MEQ in Water 100 ML] 20 meq Premix Bag 1 bag IV ONETIME 11/13/19 21:13 Magnesium Sulfate/Water [Magnesium Sulfate in Water Premix] 2 gm Premix Bag 1 bag IV ONETIME 11/13/19 21:15 NS + KCl 20mEq/L [Normal Saline with 20 mEq KCl] 1,000 ml IV ASDIRECTED 11/13/19 21:19 CULTURE BLOOD [BC] Stat
[2019-11-13] MEDS ORDERED: Potassium Chloride 20 MEQ in Premix Bag 1 BAG IV ONE ×2 (21:11→22:34)
[2019-11-13] MEDS ORDERED: Magnesium Sulfate/Water 2 GM in Premix Bag 1 BAG IV ONE (21:13)
[2019-11-13] MEDS ORDERED: NS + KCl 20mEq/L 1,000 ML IV SCH (21:15)
[2019-11-13] MEDS ORDERED: Ondansetron 4 MG Tab.DIS PO PRN (22:09)
[2019-11-13] MEDS ORDERED: Prochlorperazine 10 MG Tab PO PRN (22:09)
[2019-11-13] MEDS: Acetaminophen 325 MG Tab PO PRN (23:28)
[2019-11-14] MEDS: Lactated Ringers 1,000 ML IV SCH ×2 (00:05→16:42)
[2019-11-14] MEDS ORDERED: Ibuprofen 400 MG Tab PO PRN (00:44)
--- NOTE | 2019-11-14 02:57 | HP ---
HISTORY OF PRESENT ILLNESS: A 69-year-old who is just discharged yesterday for hypokalemia, hypomagnesemia, and also had diarrhea with inflammation seen in his colon on colonoscopy. Had colon cancer surgery back in August. Apparently, C diff test was negative. He was placed on oral Cipro. The patient was discharged yesterday from the hospital. He was feeling better, but then today had fever and chills. Just did not feel well, although he did not really have any pain. No cardiac or respiratory symptoms. He was brought back in by his for further evaluation. He was evaluated by the emergency room physician. He was noted to have fever and did blood cultures. He was noted to have low potassium and magnesium again. He was started on IV magnesium and potassium in the ER. I was asked to admit the patient for further evaluation and treatment. The patient otherwise really denied any other complaints. PAST MEDICAL HISTORY: 1. Colon cancer with colon surgery in August. Has been getting chemotherapy. He last received infusion 2 weeks ago and then has been on oral chemotherapy, which was held last week. 2. Type 2 diabetes mellitus. 3. Hyperlipidemia. 4. Essential hypertension. 5. Decreased hearing. 6. Cataracts. 7. Asthma. 8. Environmental allergies. 9. Benign prostatic hyperplasia. 10.Arthritis. 11.Stage III colon cancer. Apparently, 1 positive lymph node. 12.Cataract extraction in the past. 13.Nasal polyp surgery. 14.Sigmoidectomy on 08/14/2019. MEDICATIONS: Cipro 500 mg b.i.d., amlodipine 10 mg daily, aspirin 81 mg daily, atorvastatin 80 mg at bedtime, Xeloda 2000 mg b.i.d., clonidine 0.1 mg b.i.d., Lomotil 2 tablets q.i.d., glipizide 10 mg extended release daily, hydrochlorothiazide 25 mg daily, Lantus insulin 30 units at bedtime, losartan 100 mg daily, metformin 1000 mg b.i.d., metoprolol 100 mg b.i.d., ondansetron 4 mg q.4 hours p.r.n., pioglitazone 45 mg daily, Compazine 10 mg q.6 hours p.r.n. ALLERGIES: GEMFIBROZIL. SOCIAL HISTORY: Previous smoker, which he has quit. Alcohol use reported. FAMILY HISTORY: Noncontributory. REVIEW OF SYSTEMS: Denies headaches, vision changes, upper respiratory symptoms. No chest pain, shortness of breath, cough. Does have occasional problems with nausea and had problems with diarrhea. No significant abdominal pain. No swelling in his legs. No skin problems. No neurologic complaints reported. OBJECTIVE: VITAL SIGNS: Weight 118 kg. Temp 37.3, pulse 101, blood pressure 110/65, respirations 14, O2 saturation 96% on room air. HEENT: Pharynx is clear. NECK: Supple. No adenopathy, thyromegaly, JVD, or carotid bruits. LUNGS: Clear. HEART: Regular without murmurs. ABDOMEN: Obese, soft, nontender. No mass can be palpated. Healing midline scar with no redness or drainage. Has a port placed in his left upper chest, but did not have any significant swelling or redness. Tenderness surrounded. EXTREMITIES: No edema. SKIN: Negative. NEURO: Cranial nerves II-XII grossly intact. Alert and oriented x3. MENTAL STATUS: Normal. LABORATORY DATA: White count 4.8, hemoglobin 12.7, platelets 145,000. Sodium 131, potassium 2.5, chloride 100, BUN is 9, creatinine 1.3, glucose 176. Lactic acid was 2.6, which we will repeat in 4 hours. Calcium was low at 7.5. Magnesium slightly low at 1.6. ASSESSMENT: 1. Fever. The patient has had blood cultures drawn. Had elevated lactic acid, which per protocol will need to recheck in 4 hours. We will hold his oral Cipro and start him on IV antibiotics. 2. Hypokalemia. The patient already has been given IV potassium. 3. Hypomagnesemia. Also, given IV magnesium, which we will recheck in the morning. 4. Colon cancer with 1 positive lymph node on chemotherapy with sigmoid resection in August. 5. Type 2 diabetes mellitus, which we will continue with his current therapy. Medical problems as listed above. Lai Alfaro MD /[id number]
[2019-11-14] MEDS: Atropine/Diphenoxylate 0.025-2.5 MG Tab PO SCH ×4 (05:11→21:50)
[2019-11-14] MEDS ORDERED: Potassium Chloride 20 MEQ in Premix Bag 1 BAG IV ONE ×2 (06:26→08:30)
[2019-11-14] MEDS: Aspirin 81 MG Tab.EC PO SCH (08:55)
[2019-11-14] MEDS: metFORMIN 500 MG Tab PO SCH ×2 (08:55→16:10)
[2019-11-14] MEDS: Metoprolol Tartrate 50 MG Tab PO SCH ×2 (08:56→20:41)
[2019-11-14] MEDS: amLODIPine 10 MG Tab PO SCH (08:56)
[2019-11-14] MEDS: cloNIDine 0.1 MG Tab PO SCH ×2 (08:56→20:39)
[2019-11-14] MEDS: Losartan 50 MG Tab PO SCH (08:56)
[2019-11-14] MEDS: glipiZIDE 5 MG Tab.ER PO SCH (08:57)
[2019-11-14] MEDS: Hydrochlorothiazide 25 MG Tab PO SCH (08:57)
[2019-11-14] MEDS: Acetaminophen 325 MG Tab PO PRN (08:58)
[2019-11-14] MEDS ORDERED: CAPECITABINE 2000 MG PO SCH (09:00)
[2019-11-14] MEDS: Potassium Chloride 20 MEQ, Lidocaine 1% 2 ML in Sodium Chloride 0.9% 100 ML IV SCH ×2 (09:19→11:41)
[2019-11-14] MEDS ORDERED: Potassium Chloride 20 MEQ Tab.ER PO ONE ×3 (10:00→17:27)
[2019-11-14] MEDS: Vancomycin 1.8 GM in Sodium Chloride 0.9% 250 ML IV SCH ×2 (10:01→21:49)
--- NOTE | 2019-11-14 14:26 | PCM.PN ---
- General Info Date of Service: 11/14/19 Subjective Update: is a 69-year-old gentleman who was admitted through the emergency department with weakness, anorexia, diarrhea, and fever. He has a known history of colon cancer and is status post surgical resection done in August 2019. Since then he is received 3 courses of oral and IV chemotherapy. Clinical course has been complicated by diarrhea likely secondary to the chemotherapy. His last dose of IV chemotherapy was 6 days ago and he has had diarrhea throughout that period of time. On evaluation in the emergency department white count was found to be low and he was noted to have significant temperature elevation. He does have a port, blood cultures were drawn but were not able to be drawn through the port. He has no other localized symptoms of infection at this time other than the diarrhea. Hospitalized at this facility last week with similar symptoms, at that time stool was checked for C. difficile and found to be negative. Functional Status: Reports: Ambulating, Urinating. Denies: Tolerating Diet - Review of Systems General: Reports: Fever, Weakness, Fatigue, Malaise, Chills Pulmonary: Reports: No Symptoms Cardiovascular: Reports: No Symptoms Gastrointestinal: Reports: Decreased Appetite, Diarrhea, Nausea. Denies: Abdominal Pain, Constipation, Difficulty Swallowing, Hematochezia, Melena, Vomiting Genitourinary: Reports: No Symptoms Skin: Reports: No Symptoms - Patient Data Vitals - Most Recent: Last Vital Signs Temp 98.4 F 11/14/19 10:38 Pulse 84 11/14/19 10:38 Resp 18 11/14/19 10:38 BP 94/51 L 11/14/19 10:38 Pulse Ox 95 11/14/19 10:38 Weight - Most Recent: 269 lb 3.197 oz I&O - Last 24 Hours: Intake & Output 11/13/19 11/14/19 11/14/19 22:59 06:59 14:59 Intake Total 1841 584 Output Total 300 Balance 1541 584 Lab Results Last 24 Hours: Laboratory Results - last 24 hr 11/13/19 11/13/19 11/13/19 Range/Units 20:08 20:20 20:20 WBC 4.8 (4.5-11.0) K/uL RBC 4.17 L (4.30-5.90) M/uL Hgb 12.7 (12.0-15.0) g/dL Hct 36.4 L (40.0-54.0) % MCV 87 (80-98) fL MCH 31 (27-31) pg MCHC 35 (32-36) % Plt Count 125 L (150-400) K/uL Add Manual Diff Neutrophils % (Manual) (36-66) % Band Neutrophils % (5-11) % Lymphocytes % (Manual) (24-44) % Monocytes % (Manual) (2-6) % Eosinophils % (Manual) (2-4) % Anisocytosis Sodium 131 L (140-148) mmol/L Potassium 2.5 L* (3.6-5.2) mmol/L Chloride 100 (100-108) mmol/L Carbon Dioxide 18 L (21-32) mmol/L Anion Gap 15.5 H (5.0-14.0) mmol/L BUN 9 (7-18) mg/dL Creatinine 1.3 (0.8-1.3) mg/dL Est Cr Clr Drug Dosing 62.32 mL/min Estimated GFR (MDRD) 55 L (>60) Glucose 176 H (74-106) mg/dL Lactic Acid (0.4-2.0) mmol/L Calcium 7.5 L (8.5-10.1) mg/dL Magnesium 1.6 L (1.8-2.4) mg/dL Urine Color Yellow (YELLOW) Urine Appearance Slightly cloudy A (CLEAR) Urine pH 5.5 (5.0-8.0) Ur Specific [place] >= 1.030 (1.008-1.030) Urine Protein 100 H (NEGATIVE) mg/dL Urine Glucose (UA) 100 H (NEGATIVE) mg/dL Urine Ketones Trace H (NEGATIVE) mg/dL Urine Occult Blood Negative (NEGATIVE) Urine Nitrite Negative (NEGATIVE) Urine Bilirubin Negative (NEGATIVE) Urine Urobilinogen 0.2 (0.2-1.0) EU/dL Ur Leukocyte Esterase Negative (NEGATIVE) Urine RBC 0-5 (0-5) Urine WBC 5-10 H (0-5) Ur Epithelial Cells Few Amorphous Sediment Not seen Urine Bacteria Not seen Urine Mucus Many Urine Other 11/13/19 11/14/19 11/14/19 Range/Units 20:20 00:15 05:00 WBC 3.1 L (4.5-11.0) K/uL RBC 4.32 (4.30-5.90) M/uL Hgb 13.5 (12.0-15.0) g/dL Hct 37.9 L (40.0-54.0) % MCV 88 (80-98) fL MCH 31 (27-31) pg MCHC 36 (32-36) % Plt Count 136 L (150-400) K/uL Add Manual Diff Yes Neutrophils % (Manual) 33 L (36-66) % Band Neutrophils % 15 H (5-11) % Lymphocytes % (Manual) 33 (24-44) % Monocytes % (Manual) 15 H (2-6) % Eosinophils % (Manual) 4 (2-4) % Anisocytosis Marked H Sodium (140-148) mmol/L Potassium (3.6-5.2) mmol/L Chloride (100-108) mmol/L Carbon Dioxide (21-32) mmol/L Anion Gap (5.0-14.0) mmol/L BUN (7-18) mg/dL Creatinine (0.8-1.3) mg/dL Est Cr Clr Drug Dosing mL/min Estimated GFR (MDRD) (>60) Glucose (74-106) mg/dL Lactic Acid 2.6 H 1.5 (0.4-2.0) mmol/L Calcium (8.5-10.1) mg/dL Magnesium (1.8-2.4) mg/dL Urine Color (YELLOW) Urine Appearance (CLEAR) Urine pH (5.0-8.0) Ur Specific [place] (1.008-1.030) Urine Protein (NEGATIVE) mg/dL Urine Glucose (UA) (NEGATIVE) mg/dL Urine Ketones (NEGATIVE) mg/dL Urine Occult Blood (NEGATIVE) Urine Nitrite (NEGATIVE) Urine Bilirubin (NEGATIVE) Urine Urobilinogen (0.2-1.0) EU/dL Ur Leukocyte Esterase (NEGATIVE) Urine RBC (0-5) Urine WBC (0-5) Ur Epithelial Cells Amorphous Sediment Urine Bacteria Urine Mucus Urine Other 11/14/19 Range/Units 05:00 WBC (4.5-11.0) K/uL RBC (4.30-5.90) M/uL Hgb (12.0-15.0) g/dL Hct (40.0-54.0) % MCV (80-98) fL MCH (27-31) pg MCHC (32-36) % Plt Count (150-400) K/uL Add Manual Diff Neutrophils % (Manual) (36-66) % Band Neutrophils % (5-11) % Lymphocytes % (Manual) (24-44) % Monocytes % (Manual) (2-6) % Eosinophils % (Manual) (2-4) % Anisocytosis Sodium 137 L (140-148) mmol/L Potassium 2.8 L* (3.6-5.2) mmol/L Chloride 104 (100-108) mmol/L Carbon Dioxide 21 (21-32) mmol/L Anion Gap 14.8 H (5.0-14.0) mmol/L BUN 9 (7-18) mg/dL Creatinine 1.3 (0.8-1.3) mg/dL Est Cr Clr Drug Dosing 63.21 mL/min Estimated GFR (MDRD) 55 L (>60) Glucose 125 H (74-106) mg/dL Lactic Acid (0.4-2.0) mmol/L Calcium 7.6 L (8.5-10.1) mg/dL Magnesium 2.3 (1.8-2.4) mg/dL Urine Color (YELLOW) Urine Appearance (CLEAR) Urine pH (5.0-8.0) Ur Specific [place] (1.008-1.030) Urine Protein (NEGATIVE) mg/dL Urine Glucose (UA) (NEGATIVE) mg/dL Urine Ketones (NEGATIVE) mg/dL Urine Occult Blood (NEGATIVE) Urine Nitrite (NEGATIVE) Urine Bilirubin (NEGATIVE) Urine Urobilinogen (0.2-1.0) EU/dL Ur Leukocyte Esterase (NEGATIVE) Urine RBC (0-5) Urine WBC (0-5) Ur Epithelial Cells Amorphous Sediment Urine Bacteria Urine Mucus Urine Other Med Orders - Current: Current Medications Acetaminophen (Tylenol) 650 mg PO Q4H PRN PRN Reason: Pain (Mild 1-3)/fever Last Admin: 11/14/19 08:58 Dose: 650 mg Amlodipine Besylate (Norvasc) 10 mg PO DAILY [facility] Last Admin: 11/14/19 08:56 Dose: 10 mg Aspirin (Halfprin) 81 mg PO DAILY [facility] Last Admin: 11/14/19 08:55 Dose: 81 mg Atorvastatin Calcium (Lipitor) 80 mg PO BEDTIME [facility] Clonidine HCl (Catapres) 0.1 mg PO BID [facility] Last Admin: 11/14/19 08:56 Dose: 0.1 mg Diphenoxylate HCl/Atropine (Lomotil 0.025-2.5 Mg) 2 tab PO QID [facility] Last Admin: 11/14/19 10:00 Dose: 2 tab Glipizide (Glucotrol Xl) 10 mg PO DAILY [facility] Last Admin: 11/14/19 08:57 Dose: 10 mg Hydrochlorothiazide (Hydrochlorothiazide) 25 mg PO DAILY [facility] Last Admin: 11/14/19 08:57 Dose: 25 mg Lactated Ringer's (Ringers, Lactated) 1,000 mls @ 125 mls/hr IV ASDIRECTED [facility] Last Admin: 11/14/19 00:05 Dose: 125 mls/hr Vancomycin HCl 1.8 gm/ Sodium (Chloride) 250 mls @ 150 mls/hr IV Q12H [facility] Last Admin: 11/14/19 10:01 Dose: 150 mls/hr Meropenem 1 gm/ Sodium (Chloride) 50 mls @ 100 mls/hr IV Q8H [facility] Last Admin: 11/14/19 13:23 Dose: 100 mls/hr Ibuprofen (Motrin) 400 mg PO Q6H PRN PRN Reason: Fever Last Admin: 11/14/19 01:26 Dose: 400 mg Insulin Glargine (Lantus Solostar) 30 units SUBCUT BEDTIME [facility] Losartan Potassium (Cozaar) 100 mg PO DAILY [facility] Last Admin: 11/14/19 08:56 Dose: 100 mg Met[facility] ([facility]) [facility] Last Admin: 11/14/19 08:55 Dose: 1,000 mg Metoprolol Tartrate (Lopressor) 100 mg PO BID [facility] Last Admin: 11/14/19 08:56 Dose: 100 mg Non-Formulary Medication (Capecitabine [Xeloda]) 2,000 mg PO BID [facility] Non-Formulary Medication (Pioglitazone Hcl [Pioglitazone Hcl]) 45 mg PO DAILY [facility] Ondansetron HCl (Zofran Odt) 4 mg PO Q4H PRN PRN Reason: Nausea Last Admin: 11/14/19 05:11 Dose: 4 mg Prochlorperazine Maleate (Compazine) 10 mg PO Q6H PRN PRN Reason: Nausea Discontinued Medications Lactated Ringer's (Ringers, Lactated) 1,000 mls @ 1,000 mls/hr IV BOLUS ONE Stop: 11/13/19 21:05 Last Admin: 11/13/19 20:23 Dose: 1,000 mls/hr Potassium Chloride 20 meq/ (Premix) 100 mls @ 50 mls/hr IV ONETIME ONE Stop: 11/13/19 23:10 Last Admin: 11/13/19 21:53 Dose: 50 mls/hr Potassium Chloride/Sodium Chloride (Normal Saline With 20 Meq Kcl) 1,000 mls @ 500 mls/hr IV ASDIRECTED [facility] Last Admin: 11/13/19 21:34 Dose: 500 mls/hr Magnesium Sulfate 2 gm/ Premix 50 mls @ 12.5 mls/hr IV ONETIME ONE Stop: 11/14/19 01:12 Last Admin: 11/13/19 21:35 Dose: 12.5 mls/hr Meropenem 1 gm/ Sodium (Chloride) 50 mls @ 100 mls/hr IV Q8H [facility] Last Admin: 11/14/19 05:29 Dose: 100 mls/hr Vancomycin HCl 1 gm/ Sodium (Chloride) 250 mls @ 150 mls/hr IV Q12H [facility] Last Admin: 11/14/19 01:27 Dose: 150 mls/hr Potassium Chloride 20 meq/ (Premix) 100 mls @ 50 mls/hr IV ONETIME ONE Stop: 11/14/19 00:33 Last Admin: 11/14/19 00:01 Dose: 50 mls/hr Potassium Chloride 20 meq/Lidocaine HCl 2 ml/ Sodium Chloride 112 mls @ 56 mls/ hr IV Q2H [facility] Stop: 11/14/19 12:59 Last Admin: 11/14/19 11:41 Dose: 56 mls/hr Potassium Chloride (Klor-Con M20) 40 meq PO ONETIME ONE Stop: 11/14/19 10:01 Last Admin: 11/14/19 09:34 Dose: 40 meq Potassium Chloride (Klor-Con M20) 40 meq PO ONETIME ONE Stop: 11/14/19 13:01 Last Admin: 11/14/19 13:23 Dose: 40 meq - Exam Quality Assessment: DVT Prophylaxis General: Alert, Oriented, Cooperative, Mild Distress Lungs: Clear to Auscultation, Normal Respiratory Effort Cardiovascular: Regular Rate, Regular Rhythm, No Murmurs GI/Abdominal Exam: Soft, Non-Tender, No Organomegaly, No Distention Extremities: Non-Tender, No Pedal Edema Sepsis Event Note - Evaluation Sepsis Screening Result: Sepsis Risk - Focused Exam Vital Signs: Vital Signs Temp Temp Pulse Pulse Resp BP BP 11/14/19 10:38 98.4 F 84 18 94/51 L 11/14/19 09:28 98.4 F 11/14/19 08:58 100.8 F H 11/14/19 08:56 114 H 162/74 H 11/14/19 08:54 100.8 F H 11/14/19 07:00 100.3 F 114 H 18 162/74 H 11/14/19 03:00 99.1 F 98 17 122/58 L 11/14/19 02:26 99.1 F Pulse Ox 11/14/19 10:38 95 11/14/19 09:28 11/14/19 08:58 11/14/19 08:56 11/14/19 08:54 11/14/19 07:00 95 11/14/19 03:00 95 11/14/19 02:26 Date Exam was Performed: 11/14/19 Time Exam was Performed: 14:20 - Problem List Review Problem List Initiated/Reviewed/Updated: Yes - My Orders Last 24 Hours: My Active Orders 11/14/19 17:00 POTASSIUM,K [CHEM] Stat 11/15/19 05:00 BASIC METABOLIC PANEL,BMP [CHEM] Timed CBC WITH AUTO DIFF [HEME] Timed MAGNESIUM [CHEM] Timed - Plan Plan:: ASSESSMENT AND PLAN FEVER -he has received recent chemotherapy for colon cancer. White blood cell count is low but he does not have absolute neutropenia. Associated with diarrhea that has been present for the past month. Recent evaluation for C. difficile was found to be negative. He was discharged home on ciprofloxacin but noted no significant improvement with his diarrhea. -Continue current broad-spectrum IV antibiotic therapy with vancomycin and meropenem, pending culture results -Ongoing IV fluids because of anorexia and poor oral intake -Blood cultures pending COLON CANCER-status post previous resection, now undergoing oral and IV chemotherapy MAINTENANCE ISSUES -DVT prophylaxis; Evans 40 mg subcu daily -GI prophylaxis; not indicated -Hughes catheter; not indicated -Nutrition; regular diet with supplements -Nicotine dependence; not required CODE STATUS-FULL CODE ADMISSION STATUS-patient will be admitted to inpatient status, expect at least a 2 night hospital stay for evaluation and management of problems as outlined above. At the time of this admission I do not reasonably expected evaluation and management of this problem will require more than a 96 hour hospital stay. DISPOSITION-anticipate discharge to home after the hospital stay. PRIMARY CARE PROVIDER-Jacques Diallo
[2019-11-14] MEDS: Lactobacillus Rhamnosus GG (Probiotic) Cap PO SCH ×2 (15:42→20:39)
[2019-11-14] MEDS: Enoxaparin 40 MG/0.4 ML Syringe SUBCUT SCH (15:43)
[2019-11-14] MEDS: atorvaSTATin 20 MG Tab PO SCH (20:40)
[2019-11-14] MEDS: Insulin Glargine,Human Rec. Analog 100 Units/ML 3 ML Pen SUBCUT SCH (20:50)
[2019-11-15] MEDS: Lactated Ringers 1,000 ML IV SCH (02:34)
[2019-11-15] MEDS: Atropine/Diphenoxylate 0.025-2.5 MG Tab PO SCH ×4 (07:26→21:30)
[2019-11-15] MEDS: metFORMIN 500 MG Tab PO SCH ×2 (07:28→16:38)
[2019-11-15] MEDS ORDERED: Potassium Chloride 20 MEQ Tab.ER PO ONE ×3 (08:30→17:00)
[2019-11-15] MEDS: cloNIDine 0.1 MG Tab PO SCH ×2 (09:10→21:23)
[2019-11-15] MEDS: glipiZIDE 5 MG Tab.ER PO SCH (09:11)
[2019-11-15] MEDS: Losartan 50 MG Tab PO SCH (09:11)
[2019-11-15] MEDS: Hydrochlorothiazide 25 MG Tab PO SCH (09:12)
[2019-11-15] MEDS: Lactobacillus Rhamnosus GG (Probiotic) Cap PO SCH ×2 (09:12→21:21)
[2019-11-15] MEDS: Aspirin 81 MG Tab.EC PO SCH (09:12)
[2019-11-15] MEDS: amLODIPine 10 MG Tab PO SCH (09:13)
[2019-11-15] MEDS: Metoprolol Tartrate 50 MG Tab PO SCH ×2 (09:13→21:24)
[2019-11-15] MEDS: Vancomycin 1.8 GM in Sodium Chloride 0.9% 250 ML IV SCH (10:35)
--- NOTE | 2019-11-15 11:46 | PCM.PN ---
- General Info Date of Service: 11/15/19 Subjective Update: Anish is shown further improvement over the last 24 hours, white blood cell count has improved and he has remained afebrile. Continues to experience diarrhea which is felt to be a side effect of his recent chemotherapy. Oral intake gradually improving. Functional Status: Reports: Ambulating, Urinating - Review of Systems General: Reports: Weakness, Fatigue. Denies: Fever, Chills Pulmonary: Reports: No Symptoms Cardiovascular: Reports: No Symptoms Gastrointestinal: Reports: Decreased Appetite, Diarrhea. Denies: Abdominal Pain , Difficulty Swallowing, Nausea, Vomiting Genitourinary: Reports: No Symptoms - Patient Data Vitals - Most Recent: Last Vital Signs Temp 98.3 F 11/15/19 10:49 Pulse 82 11/15/19 10:49 Resp 16 11/15/19 10:49 BP 112/56 L 11/15/19 10:49 Pulse Ox 98 11/15/19 10:49 Weight - Most Recent: 269 lb 3.197 oz I&O - Last 24 Hours: Intake & Output 11/14/19 11/15/19 11/15/19 22:59 06:59 14:59 Intake Total 2083 1425 730 Balance 2083 1425 730 Lab Results Last 24 Hours: Laboratory Results - last 24 hr 11/14/19 11/15/19 11/15/19 Range/Units 16:57 04:22 04:22 WBC 7.4 (4.5-11.0) K/uL RBC 3.79 L (4.30-5.90) M/uL Hgb 11.7 L (12.0-15.0) g/dL Hct 33.8 L (40.0-54.0) % MCV 89 (80-98) fL MCH 31 (27-31) pg MCHC 35 (32-36) % Plt Count 128 L (150-400) K/uL Add Manual Diff Yes Neutrophils % (Manual) 43 (36-66) % Band Neutrophils % 17 H (5-11) % Lymphocytes % (Manual) 17 L (24-44) % Monocytes % (Manual) 19 H (2-6) % Eosinophils % (Manual) 3 (2-4) % Blast Cells % 1 % Nucleated RBCs 1 Anisocytosis Marked H Spherocytes Few H Manjit Cells Moderate H Sodium 140 (140-148) mmol/L Potassium 3.5 L 3.5 L (3.6-5.2) mmol/L Chloride 110 H (100-108) mmol/L Carbon Dioxide 20 L (21-32) mmol/L Anion Gap 13.5 (5.0-14.0) mmol/L BUN 14 D (7-18) mg/dL Creatinine 1.3 (0.8-1.3) mg/dL Est Cr Clr Drug Dosing 63.43 mL/min Estimated GFR (MDRD) 55 L (>60) Glucose 134 H (74-106) mg/dL Calcium 7.3 L (8.5-10.1) mg/dL Magnesium 2.1 (1.8-2.4) mg/dL David Results Last 24 Hours: Microbiology 11/13/19 20:25 Aerobic Blood Culture - Preliminary Blood - Venous NO GROWTH AFTER 1 DAY Anaerobic Blood Culture - Preliminary NO GROWTH AFTER 1 DAY 11/13/19 20:20 Aerobic Blood Culture - Preliminary Blood - Arm, Left NO GROWTH AFTER 1 DAY Anaerobic Blood Culture - Preliminary NO GROWTH AFTER 1 DAY Med Orders - Current: Current Medications Acetaminophen (Tylenol) 650 mg PO Q4H PRN PRN Reason: Pain (Mild 1-3)/fever Last Admin: 11/14/19 08:58 Dose: 650 mg Amlodipine Besylate (Norvasc) 10 mg PO DAILY [facility] Last Admin: 11/15/19 09:13 Dose: 10 mg Aspirin (Halfprin) 81 mg PO DAILY [facility] Last Admin: 11/15/19 09:12 Dose: 81 mg Atorvastatin Calcium (Lipitor) 80 mg PO BEDTIME [facility] Last Admin: 11/14/19 20:40 Dose: 80 mg Clonidine HCl (Catapres) 0.1 mg PO BID [facility] Last Admin: 11/15/19 09:10 Dose: 0.1 mg Diphenoxylate HCl/Atropine (Lomotil 0.025-2.5 Mg) 2 tab PO QID [facility] Last Admin: 11/15/19 07:26 Dose: 2 tab Enoxaparin Sodium (Lovenox) 40 mg SUBCUT Q24H [facility] Last Admin: 11/14/19 15:43 Dose: 40 mg Glipizide (Glucotrol Xl) 10 mg PO DAILY [facility] Last Admin: 11/15/19 09:11 Dose: 10 mg Hydrochlorothiazide (Hydrochlorothiazide) 25 mg PO DAILY [facility] Last Admin: 11/15/19 09:12 Dose: 25 mg Ibuprofen (Motrin) 400 mg PO Q6H PRN PRN Reason: Fever Last Admin: 11/14/19 01:26 Dose: 400 mg Insulin Glargine (Lantus Solostar) 30 units SUBCUT BEDTIME [facility] Last Admin: 11/14/19 20:50 Dose: 30 units Lactobacillus Rhamnosus (Culturelle) 1 cap PO BID [facility] Last Admin: 11/15/19 09:12 Dose: 1 cap Losartan Potassium (Cozaar) 100 mg PO DAILY [facility] Last Admin: 11/15/19 09:11 Dose: 100 mg Metformin HCl (Glucophage) 1,000 mg PO BIDMEALS [facility] Last Admin: 11/15/19 07:28 Dose: 1,000 mg Metoprolol Tartrate (Lopressor) 100 mg PO BID [facility] Last Admin: 11/15/19 09:13 Dose: 100 mg Non-Formulary Medication (Pioglitazone Hcl [Pioglitazone Hcl]) 45 mg PO DAILY [facility] Ondansetron HCl (Zofran Odt) 4 mg PO Q4H PRN PRN Reason: Nausea Last Admin: 11/14/19 05:11 Dose: 4 mg Potassium Chloride (Klor-Con M20) 40 meq PO ONETIME ONE Stop: 11/15/19 12:01 Potassium Chloride (Klor-Con M20) 40 meq PO ONETIME ONE Stop: 11/15/19 17:01 Prochlorperazine Maleate (Compazine) 10 mg PO Q6H PRN PRN Reason: Nausea Discontinued Medications Lactated Ringer's (Ringers, Lactated) 1,000 mls @ 1,000 mls/hr IV BOLUS ONE Stop: 11/13/19 21:05 Last Admin: 11/13/19 20:23 Dose: 1,000 mls/hr Potassium Chloride 20 meq/ (Premix) 100 mls @ 50 mls/hr IV ONETIME ONE Stop: 11/13/19 23:10 Last Admin: 11/13/19 21:53 Dose: 50 mls/hr Potassium Chloride/Sodium Chloride (Normal Saline With 20 Meq Kcl) 1,000 mls @ 500 mls/hr IV ASDIRECTED [facility] Last Admin: 11/13/19 21:34 Dose: 500 mls/hr Magnesium Sulfate 2 gm/ Premix 50 mls @ 12.5 mls/hr IV ONETIME ONE Stop: 11/14/19 01:12 Last Admin: 11/13/19 21:35 Dose: 12.5 mls/hr Lactated Ringer's (Ringers, Lactated) 1,000 mls @ 125 mls/hr IV ASDIRECTED [facility] Last Admin: 11/15/19 02:34 Dose: 125 mls/hr Meropenem 1 gm/ Sodium (Chloride) 50 mls @ 100 mls/hr IV Q8H [facility] Last Admin: 11/14/19 05:29 Dose: 100 mls/hr Vancomycin HCl 1 gm/ Sodium (Chloride) 250 mls @ 150 mls/hr IV Q12H [facility] Last Admin: 11/14/19 01:27 Dose: 150 mls/hr Potassium Chloride 20 meq/ (Premix) 100 mls @ 50 mls/hr IV ONETIME ONE Stop: 11/14/19 00:33 Last Admin: 11/14/19 00:01 Dose: 50 mls/hr Vancomycin HCl 1.8 gm/ Sodium (Chloride) 250 mls @ 150 mls/hr IV Q12H [facility] Last Admin: 11/15/19 10:35 Dose: 150 mls/hr Potassium Chloride 20 meq/Lidocaine HCl 2 ml/ Sodium Chloride 112 mls @ 56 mls/ hr IV Q2H [facility] Stop: 11/14/19 12:59 Last Admin: 11/14/19 11:41 Dose: 56 mls/hr Meropenem 1 gm/ Sodium (Chloride) 50 mls @ 100 mls/hr IV Q8H [facility] Last Admin: 11/15/19 05:21 Dose: 100 mls/hr Non-Formulary Medication (Capecitabine [Xeloda]) 2,000 mg PO BID [facility] Last Admin: 11/14/19 15:12 Dose: Not Given Potassium Chloride (Klor-Con M20) 40 meq PO ONETIME ONE Stop: 11/14/19 10:01 Last Admin: 11/14/19 09:34 Dose: 40 meq Potassium Chloride (Klor-Con M20) 40 meq PO ONETIME ONE Stop: 11/14/19 13:01 Last Admin: 11/14/19 13:23 Dose: 40 meq Potassium Chloride (Klor-Con M20) 40 meq PO ONETIME ONE Stop: 11/14/19 17:28 Last Admin: 11/14/19 18:42 Dose: 40 meq Potassium Chloride (Klor-Con M20) 40 meq PO ONETIME ONE Stop: 11/15/19 08:31 Last Admin: 11/15/19 09:09 Dose: 40 meq - Exam Quality Assessment: DVT Prophylaxis General: Alert, Oriented, Cooperative, Mild Distress Lungs: Clear to Auscultation, Normal Respiratory Effort Cardiovascular: Regular Rate, Regular Rhythm, No Murmurs GI/Abdominal Exam: Soft, Non-Tender, No Organomegaly, No Distention Extremities: Non-Tender, No Pedal Edema Sepsis Event Note - Evaluation Sepsis Screening Result: No Definite Risk - Focused Exam Vital Signs: Vital Signs Temp Pulse Pulse Pulse Resp BP BP 11/15/19 10:49 98.3 F 82 16 11/15/19 09:13 90 132/66 11/15/19 09:11 132/66 11/15/19 09:10 132/66 11/15/19 08:33 90 11/15/19 07:30 98.1 F 90 14 137/61 11/15/19 05:23 98.5 F 103 H 16 97/55 L BP Pulse Ox 11/15/19 10:49 112/56 L 98 11/15/19 09:13 11/15/19 09:11 11/15/19 09:10 11/15/19 08:33 132/66 99 11/15/19 07:30 99 11/15/19 05:23 96 Date Exam was Performed: 11/15/19 Time Exam was Performed: 11:43 - Problem List Review Problem List Initiated/Reviewed/Updated: Yes - My Orders Last 24 Hours: My Active Orders 11/14/19 15:00 Enoxaparin [Lovenox] 40 mg SUBCUT Q24H Lactobacillus Rhamnosus GG [Culturelle] 1 cap PO BID 11/15/19 10:58 Convert IV to Saline Lock [OM.PC] Routine 11/15/19 12:00 Potassium Chloride [Klor-Con M20] 40 meq PO ONETIME ONE 11/15/19 17:00 Potassium Chloride [Klor-Con M20] 40 meq PO ONETIME ONE 11/16/19 05:11 POTASSIUM,K [CHEM] AM - Plan Plan:: ASSESSMENT AND PLAN FEVER -he has received recent chemotherapy for colon cancer. White blood cell count has improved over the last 24 hours and he has remained afebrile, oral intake improved. -Discontinue IV antibiotic therapy, he has been afebrile since admission and blood cultures are negative so far -Saline lock IV -Blood cultures pending COLON CANCER-status post previous resection, now undergoing oral and IV chemotherapy MAINTENANCE ISSUES -DVT prophylaxis; Lovenox 40 mg subcu daily -GI prophylaxis; not indicated -Hughes catheter; not indicated -Nutrition; regular diet with supplements -Nicotine dependence; not required CODE STATUS-FULL CODE ADMISSION STATUS-patient will be admitted to inpatient status, expect at least a 2 night hospital stay for evaluation and management of problems as outlined above. At the time of this admission I do not reasonably expected evaluation and management of this problem will require more than a 96 hour hospital stay. DISPOSITION-anticipate discharge to home tomorrow. PRIMARY CARE PROVIDER-Jacques Diallo
[2019-11-15] MEDS: PIOGLITAZONE HCL 45 MG PO SCH (13:14)
[2019-11-15] MEDS: Enoxaparin 40 MG/0.4 ML Syringe SUBCUT SCH (15:50)
[2019-11-15] MEDS: atorvaSTATin 20 MG Tab PO SCH (21:22)
[2019-11-15] MEDS: Insulin Glargine,Human Rec. Analog 100 Units/ML 3 ML Pen SUBCUT SCH (21:25)
[2019-11-16] MEDS: Atropine/Diphenoxylate 0.025-2.5 MG Tab PO SCH ×2 (07:32→10:57)
[2019-11-16] MEDS: metFORMIN 500 MG Tab PO SCH (07:33)
[2019-11-16] MEDS ORDERED: Potassium Chloride 20 MEQ Tab.ER PO ONE ×2 (09:00→11:45)
[2019-11-16] MEDS ORDERED: Spironolactone 25 MG Tab PO SCH (09:00)
[2019-11-16] MEDS: Aspirin 81 MG Tab.EC PO SCH (09:26)
[2019-11-16] MEDS: Lactobacillus Rhamnosus GG (Probiotic) Cap PO SCH (09:26)
[2019-11-16] MEDS: cloNIDine 0.1 MG Tab PO SCH (09:27)
[2019-11-16] MEDS: Metoprolol Tartrate 50 MG Tab PO SCH (09:27)
[2019-11-16] MEDS: Hydrochlorothiazide 25 MG Tab PO SCH (09:28)
[2019-11-16] MEDS: Losartan 50 MG Tab PO SCH (09:29)
[2019-11-16] MEDS: glipiZIDE 5 MG Tab.ER PO SCH (09:29)
[2019-11-16] MEDS: PIOGLITAZONE HCL 45 MG PO SCH (09:30)
[2019-11-16] MEDS: amLODIPine 10 MG Tab PO SCH (09:30)
--- NOTE | 2019-11-16 12:38 | PCM.DCSUM1 ---
Discharge Summary - Hospital Course Brief History: Mr. Oconnell is a 69-year-old gentleman who was admitted through the emergency department with weakness and fever, secondary to recent chemotherapy, diarrhea, and hypokalemia. - Discharge Data Discharge Date: 11/16/19 Discharge Disposition: Home, W Home Health Agency 06 Condition: Fair - Referral to Home Health Date of Face to Face Encounter: 11/16/19 Reason for Homebound Status: Weakness, Diarrhea Primary Care Physician: Jacques Diallo NP Skilled Need: Regular home health care nurse assessment, physical therapy, Occupational Therapy - Discharge Diagnosis/Problem(s) (1) Elevated lactic acid level SNOMED Code(s): 2258051 ICD Code: R79.89 - OTHER SPECIFIED ABNORMAL FINDINGS OF BLOOD CHEMISTRY Status: Acute Current Visit: Yes (2) Hypokalemia SNOMED Code(s): 61198847 ICD Code: E87.6 - HYPOKALEMIA Status: Acute Current Visit: Yes Onset Date: ~10/27/19 (3) Hypomagnesemia SNOMED Code(s): 061545559 ICD Code: E83.42 - HYPOMAGNESEMIA Status: Acute Current Visit: Yes (4) Diarrhea SNOMED Code(s): 79693320 ICD Code: R19.7 - DIARRHEA, UNSPECIFIED Status: Acute Current Visit: Yes Onset Date: ~10/27/19 Qualifiers: Diarrhea type: infectious Qualified Code(s): A09 - Infectious gastroenteritis and colitis, unspecified (5) Adenocarcinoma of colon SNOMED Code(s): 392268318, 866015774 ICD Code: C18.9 - MALIGNANT NEOPLASM OF COLON, UNSPECIFIED Status: Chronic Current Visit: No (6) Type 2 diabetes mellitus SNOMED Code(s): 40156057 ICD Code: E11.9 - TYPE 2 DIABETES MELLITUS WITHOUT COMPLICATIONS Status: Chronic Current Visit: No Onset Date: Unknown Qualifiers: Diabetes mellitus keno terminal operator insulin use: with keno terminal operator use Diabetes mellitus complication status: without complication Qualified Code(s): E11.9 - Type 2 diabetes mellitus without complications; Z79.4 - correction (current) use of insulin - Patient Summary/Data Consults: Consultations 11/16/19 09:11 PT Evaluation and Treatment [CONS] Routine Please Evaluate and Treat. PT Reason for Consult: weakness This query below is only for informational purposes and is not editable. Admission Diagnosis/Problem: Fever Hospital Course: is a 69-year-old gentleman who was admitted through the emergency department with weakness, anorexia, diarrhea, and fever. He has a known history of colon cancer and is status post surgical resection done in August 2019. Since then he is received 3 courses of oral and IV chemotherapy. Clinical course has been complicated by diarrhea likely secondary to the chemotherapy. His last dose of IV chemotherapy was 6 days ago and he has had diarrhea throughout that period of time. On evaluation in the emergency department white count was found to be low and he was noted to have significant temperature elevation. He does have a port, blood cultures were drawn but were not able to be drawn through the port. He has no other localized symptoms of infection at this time other than the diarrhea. Hospitalized at this facility last week with similar symptoms, at that time stool was checked for C. difficile and found to be negative. Admission his oral chemotherapy was held and he received IV fluids for hydration. He was given vigorous IV and oral potassium replacement for management of his hypokalemia. Blood cultures were drawn at the time of admission and he was started on empiric IV antibiotic therapy with vancomycin and meropenem. Blood cultures remain negative through discharge and IV vancomycin and meropenem were discontinued after 2 days. He had no recurrent temperature elevations and his white count normalized during hospitalization. Continued to experience diarrhea during his hospital stay but it did seem to slowly improve with less frequency. Appetite improved moderately during hospitalization and IV fluids were stopped 24 hours prior to discharge. He was able to take in enough oral liquids to keep himself hydrated. Hypokalemia remains an ongoing problem and he will be discharged home with potassium chloride 40 mEq twice daily as well as Spironolactone 25 mg twice daily. Follow-up potassium level will be obtained at the clinic tomorrow and again on November 19. He has follow-up with his primary care provider on November 19 and follow-up with oncology on November 21. Will be discharged home with home health care services including physical therapy and Occupational Therapy. Activity will be as tolerated and he will resume regular diet with an emphasis placed on intake of liquids and maintenance of hydration. - Patient Instructions Diet: Usual Diet as Tolerated Activity: As Tolerated Other/Special Instructions: Discharge with home physical therapy and Occupational Therapy. Follow-up potassium levels at the clinic on November 16 and November 19. Follow-up appointment with primary care provider within 1 week. - Discharge Plan *PRESCRIPTION DRUG MONITORING PROGRAM REVIEWED*: Not Applicable *COPY OF PRESCRIPTION DRUG MONITORING REPORT IN PATIENT RIOS: Not Applicable Prescriptions/Med Rec: Potassium Chloride [Klor-Con M20] 40 meq PO BID #120 tab.er Spironolactone [Aldactone] 25 mg PO BID #60 tablet Home Medications: Home Meds Aspirin [Halfprin] 81 mg PO DAILY 07/10/19 [History] Pioglitazone HCl 45 mg PO DAILY 07/10/19 [History] amLODIPine Besylate [Amlodipine Besylate] 10 mg PO DAILY 07/10/19 [History] Insulin Glarg,Human.Rec.Analog [Lantus Solostar] 30 units SUBCUT BEDTIME pen [Rx] Losartan [Cozaar] 100 mg PO DAILY tablet 08/18/19 [Rx] Metoprolol Tartrate [Lopressor] 100 mg PO BID tablet 08/18/19 [Rx] atorvaSTATin [Lipitor] 80 mg PO BEDTIME tablet 08/18/19 [Rx] cloNIDine [Catapres] 0.1 mg PO BID tablet 08/18/19 [Rx] glipiZIDE [Glucotrol XL] 10 mg PO DAILY tab.er 08/18/19 [Rx] hydroCHLOROthiazide [Hydrochlorothiazide] 25 mg PO DAILY tablet 08/18/19 [Rx] metFORMIN [Glucophage] 1,000 mg PO BIDMEALS tablet 08/18/19 [Rx] Prochlorperazine Maleate [Compazine] 10 mg PO Q6H PRN 09/15/19 [History] Diphenoxylate HCl/Atropine [Lomotil] 2 tab PO QID 11/10/19 [History] Ondansetron [Ondansetron ODT] 4 mg PO Q4HR PRN 11/10/19 [History] Potassium Chloride [Klor-Con M20] 40 meq PO BID #120 tab.er 11/16/19 [Rx] Spironolactone [Aldactone] 25 mg PO BID #60 tablet 11/16/19 [Rx] Referrals: Jacques Diallo, [employer]NICIAN [Primary Care Provider] - - Discharge Summary/Plan Comment DC Time >30 min.: No - Patient Data Vitals - Most Recent: Last Vital Signs Temp 97.6 F 11/16/19 07:25 Pulse 74 11/16/19 09:27 Resp 16 11/16/19 07:25 BP 148/71 H 11/16/19 09:30 Pulse Ox 100 11/16/19 04:24 Weight - Most Recent: 269 lb 3.197 oz I&O - Last 24 hours: Intake & Output 11/15/19 11/16/19 11/16/19 22:59 06:59 14:59 Intake Total 700 250 320 Balance 700 250 320 Lab Results - Last 24 hrs: Laboratory Results - last 24 hr 11/16/19 Range/Units 04:10 Potassium 3.1 L (3.6-5.2) mmol/L AMADOU Results - Last 24 hrs: Microbiology 11/13/19 20:25 Aerobic Blood Culture - Preliminary Blood - Venous NO GROWTH AFTER 2 DAYS Anaerobic Blood Culture - Preliminary NO GROWTH AFTER 2 DAYS 11/13/19 20:20 Aerobic Blood Culture - Preliminary Blood - Arm, Left NO GROWTH AFTER 2 DAYS Anaerobic Blood Culture - Preliminary NO GROWTH AFTER 2 DAYS Med Orders - Current: Current Medications Acetaminophen (Tylenol) 650 mg PO Q4H PRN PRN Reason: Pain (Mild 1-3)/fever Last Admin: 11/14/19 08:58 Dose: 650 mg Amlodipine Besylate (Norvasc) 10 mg PO DAILY [facility] Last Admin: 11/16/19 09:30 Dose: 10 mg Aspirin (Halfprin) 81 mg PO DAILY [facility] Last Admin: 11/16/19 09:26 Dose: 81 mg Atorvastatin Calcium (Lipitor) 80 mg PO BEDTIME [facility] Last Admin: 11/15/19 21:22 Dose: 80 mg Clonidine HCl (Catapres) 0.1 mg PO BID [facility] Last Admin: 11/16/19 09:27 Dose: 0.1 mg Diphenoxylate HCl/Atropine (Lomotil 0.025-2.5 Mg) 2 tab PO QID [facility] Last Admin: 11/16/19 10:57 Dose: 2 tab Enoxaparin Sodium (Lovenox) 40 mg SUBCUT Q24H [facility] Last Admin: 11/15/19 15:50 Dose: 40 mg Glipizide (Glucotrol Xl) 10 mg PO DAILY [facility] Last Admin: 11/16/19 09:29 Dose: 10 mg Heparin Sodium (Porcine) (Heparin Lock Flush 100 Units/Ml) 500 units FLUSH ASDIRECTED PRN PRN Reason: IV Use Last Admin: 11/16/19 04:29 Dose: 500 units Hydrochlorothiazide (Hydrochlorothiazide) 25 mg PO DAILY [facility] Last Admin: 11/16/19 09:28 Dose: 25 mg Ibuprofen (Motrin) 400 mg PO Q6H PRN PRN Reason: Fever Last Admin: 11/14/19 01:26 Dose: 400 mg Insulin Glargine (Lantus Solostar) 30 units SUBCUT BEDTIME [facility] Last Admin: 11/15/19 21:25 Dose: 30 units Lactobacillus Rhamnosus (Culturelle) 1 cap PO BID [facility] Last Admin: 11/16/19 09:26 Dose: 1 cap Losartan Potassium (Cozaar) 100 mg PO DAILY [facility] Last Admin: 11/16/19 09:29 Dose: 100 mg Metformin HCl (Glucophage) 1,000 mg PO BIDMEALS [facility] Last Admin: 11/16/19 07:33 Dose: 1,000 mg Metoprolol Tartrate (Lopressor) 100 mg PO BID [facility] Last Admin: 11/16/19 09:27 Dose: 100 mg Pioglitazone Hcl ( (Actos) 45 MgPom) 45 mg PO DAILY [facility] Last Admin: 11/16/19 09:30 Dose: Not Given Ondansetron HCl (Zofran Odt) 4 mg PO Q4H PRN PRN Reason: Nausea Last Admin: 11/14/19 05:11 Dose: 4 mg Prochlorperazine Maleate (Compazine) 10 mg PO Q6H PRN PRN Reason: Nausea Spironolactone (Aldactone) 25 mg PO BID [facility] Last Admin: 11/16/19 09:30 Dose: 25 mg Discontinued Medications Lactated Ringer's (Ringers, Lactated) 1,000 mls @ 1,000 mls/hr IV BOLUS ONE Stop: 11/13/19 21:05 Last Admin: 11/13/19 20:23 Dose: 1,000 mls/hr Potassium Chloride 20 meq/ (Premix) 100 mls @ 50 mls/hr IV ONETIME ONE Stop: 11/13/19 23:10 Last Admin: 11/13/19 21:53 Dose: 50 mls/hr Potassium Chloride/Sodium Chloride (Normal Saline With 20 Meq Kcl) 1,000 mls @ 500 mls/hr IV ASDIRECTED [facility] Last Admin: 11/13/19 21:34 Dose: 500 mls/hr Magnesium Sulfate 2 gm/ Premix 50 mls @ 12.5 mls/hr IV ONETIME ONE Stop: 11/14/19 01:12 Last Admin: 11/13/19 21:35 Dose: 12.5 mls/hr Lactated Ringer's (Ringers, Lactated) 1,000 mls @ 125 mls/hr IV ASDIRECTED [facility] Last Admin: 11/15/19 02:34 Dose: 125 mls/hr Meropenem 1 gm/ Sodium (Chloride) 50 mls @ 100 mls/hr IV Q8H [facility] Last Admin: 11/14/19 05:29 Dose: 100 mls/hr Vancomycin HCl 1 gm/ Sodium (Chloride) 250 mls @ 150 mls/hr IV Q12H [facility] Last Admin: 11/14/19 01:27 Dose: 150 mls/hr Potassium Chloride 20 meq/ (Premix) 100 mls @ 50 mls/hr IV ONETIME ONE Stop: 11/14/19 00:33 Last Admin: 11/14/19 00:01 Dose: 50 mls/hr Vancomycin HCl 1.8 gm/ Sodium (Chloride) 250 mls @ 150 mls/hr IV Q12H [facility] Last Admin: 11/15/19 10:35 Dose: 150 mls/hr Potassium Chloride 20 meq/Lidocaine HCl 2 ml/ Sodium Chloride 112 mls @ 56 mls/ hr IV Q2H [facility] Stop: 11/14/19 12:59 Last Admin: 11/14/19 11:41 Dose: 56 mls/hr Meropenem 1 gm/ Sodium (Chloride) 50 mls @ 100 mls/hr IV Q8H [facility] Last Admin: 11/15/19 05:21 Dose: 100 mls/hr Non-Formulary Medication (Capecitabine [Xeloda]) 2,000 mg PO BID [facility] Last Admin: 11/14/19 15:12 Dose: Not Given Potassium Chloride (Klor-Con M20) 40 meq PO ONETIME ONE Stop: 11/14/19 10:01 Last Admin: 11/14/19 09:34 Dose: 40 meq Potassium Chloride (Klor-Con M20) 40 meq PO ONETIME ONE Stop: 11/14/19 13:01 Last Admin: 11/14/19 13:23 Dose: 40 meq Potassium Chloride (Klor-Con M20) 40 meq PO ONETIME ONE Stop: 11/14/19 17:28 Last Admin: 11/14/19 18:42 Dose: 40 meq Potassium Chloride (Klor-Con M20) 40 meq PO ONETIME ONE Stop: 11/15/19 08:31 Last Admin: 11/15/19 09:09 Dose: 40 meq Potassium Chloride (Klor-Con M20) 40 meq PO ONETIME ONE Stop: 11/15/19 12:01 Last Admin: 11/15/19 12:39 Dose: 40 meq Potassium Chloride (Klor-Con M20) 40 meq PO ONETIME ONE Stop: 11/15/19 17:01 Last Admin: 11/15/19 16:38 Dose: 40 meq Potassium Chloride (Klor-Con M20) 40 meq PO ONETIME ONE Stop: 11/16/19 09:01 Last Admin: 11/16/19 09:28 Dose: 40 meq Potassium Chloride (Klor-Con M20) 40 meq PO ONETIME ONE Stop: 11/16/19 11:46 Last Admin: 11/16/19 12:03 Dose: 40 meq - Exam General: Reports: Alert, Oriented, Cooperative, No Acute Distress Lungs: Reports: Clear to Auscultation, Normal Respiratory Effort Cardiovascular: Reports: Regular Rate, Regular Rhythm, No Murmurs GI/Abdominal Exam: Soft, Non-Tender, No Organomegaly, No Distention Extremities: Non-Tender, No Pedal Edema
== END 2019-11-16 15:46 | disposition home health service (06) | DRG 864 ==
LOC: JP.ED 19:48 → JP.MS 22:03
PROVIDERS: ADMIT Family Medicine; ATTEND Family Medicine
DX: A09 Infectious gastroenteritis and colitis, unspecified (principal); R50.2 Drug induced fever; K52.1 Toxic gastroenteritis and colitis; R74.0 Nonspecific elevation of levels of transaminase and lactic acid dehydrogenase [LDH]; H91.90 Unspecified hearing loss, unspecified ear; E78.00 Pure hypercholesterolemia, unspecified; I10 Essential (primary) hypertension; C18.9 Malignant neoplasm of colon, unspecified; Z90.49 Acquired absence of other specified parts of digestive tract; T45.1X5A Adverse effect of antineoplastic and immunosuppressive drugs, initial encounter; E87.6 Hypokalemia; E83.42 Hypomagnesemia; E66.9 Obesity, unspecified; J45.909 Unspecified asthma, uncomplicated; Z87.891 Personal history of nicotine dependence; Z88.8 Allergy status to other drugs, medicaments and biological substances; Z79.82 Long term (current) use of aspirin; M19.90 Unspecified osteoarthritis, unspecified site; N40.0 Benign prostatic hyperplasia without lower urinary tract symptoms; Z95.9 Presence of cardiac and vascular implant and graft, unspecified; R79.89 Other specified abnormal findings of blood chemistry; E11.9 Type 2 diabetes mellitus without complications; Z79.4 Long term (current) use of insulin; Z98.49 Cataract extraction status, unspecified eye; Z79.899 Other long term (current) drug therapy
CPT/HCPCS: 36415; 80048; 81001; 82962; 83605; 83735; 84132; 85025; 85027; 87040; 96361; 96365; 96368; 97161-GP; 97530-GP; 99284; 99284-25; A9270-GY; J1642; J1650; J2001; J2185; J3370; J3475; J3480; J7050; J7120

== ENCOUNTER 2020-12-20 06:36 | Day surgery (SDC) | payer MEDICARE ==
[2020-12-20] MEDS ORDERED: Propofol 200 MG/20 ML SDV ONE ×2 (07:17→08:31)
[2020-12-20] MEDS ORDERED: fentaNYL 100 MCG/2 ML SDV ONE (07:17)
[2020-12-20] MEDS ORDERED: Midazolam 1 MG/ML 2 ML SDV ONE (07:17)
[2020-12-20] MEDS ORDERED: Sodium Chloride 0.9% 1,000 ML IV SCH (09:00)
--- NOTE | 2020-12-21 07:11 | OR ---
DATE OF PROCEDURE: 12/20/2020 SURGEON: Samuel Davis MD PROCEDURE: Colonoscopy. FINDINGS: 1. Cecal polyp, approximately 5 mm, completely removed using cold biopsy forceps. 2. Three small protrusions at anastomosis site (biopsied using cold biopsy forceps times approximately 8). 3. Ericka Ink used to tattoo immediately distal to anastomotic site. PREOPERATIVE DIAGNOSIS: History of colorectal cancer. POSTOPERATIVE DIAGNOSIS: History of colorectal cancer. INDICATIONS: This is a pleasant 70-year-old male who had a colorectal cancer resected by Dr. Christofer Wright approximately 2 years ago. This is his followup colonoscopy. RISKS: Risks, benefits, alternatives, limitations including but not limited to infection, bleeding, perforation, false positives, and false negatives were explained to the patient who wished to proceed. PROCEDURE IN DETAIL: The patient was placed in left lateral decubitus position. Digital rectal exam was performed without abnormality. The scope was introduced and advanced atraumatically to the ileocecal valve. Within the cecum proper, a small polyp was identified. This was approximately 5 mm or less. This was completely removed using cold biopsy forceps. The scope was brought back to the remainder of the colon to the level of approximately 22 cm from the anal verge. This was the location most above the previous anastomosis site. There were 3 small areas of prominent tissue, either this is overlap from the anastomosis or a recurrence. There was no active bleeding or any other abnormalities in this area. Nonetheless, this was biopsied multiple times using cold biopsy forceps. Tattooing was then commenced in 3 locations immediately (within 1 cm) distal of the anastomosis. Note, no tattooing was performed proximally. The scope was then brought back the remainder of the way, retroflexed. No abnormalities were noted. The patient tolerated the procedure well. Samuel Davis MD /[id number]
== END 2020-12-20 09:55 | disposition home or self-care (01) ==
LOC: JP.SDS 06:36
PROVIDERS: ATTEND Surgery
DX: D12.0 Benign neoplasm of cecum (principal); K63.3 Ulcer of intestine; K63.89 Other specified diseases of intestine; I10 Essential (primary) hypertension; E78.5 Hyperlipidemia, unspecified; E11.9 Type 2 diabetes mellitus without complications; E66.9 Obesity, unspecified; Z68.41 Body mass index [BMI] 40.0-44.9, adult; Z80.0 Family history of malignant neoplasm of digestive organs; Z88.8 Allergy status to other drugs, medicaments and biological substances; Z85.038 Personal history of other malignant neoplasm of large intestine; Z85.048 Personal history of other malignant neoplasm of rectum, rectosigmoid junction, and anus
CPT/HCPCS: 45380; 88305; J2250; J2704; J3010; J7030

== ENCOUNTER 2025-01-05 17:55 | Emergency (ER) | payer MEDICARE ==
[2025-01-05 18:23] LABS: BASOPHILS ABSOLUTE AUTO 0.05 K/uL (0.00-0.10); BASOPHILS PERCENT AUTO 0.3 % (0.1-1.3); EOSINOPHILS ABSOLUTE AUTO 0.04 K/uL (0.00-0.40); EOSINOPHILS PERCENT AUTO 0.2 % (0.0-5.4); HEMATOCRIT 46.3 % (38.4-49.7); HEMOGLOBIN 15.8 g/dL (12.9-16.9); IMMATURE GRAN PERCENT AUTO 0.6 % (0.0-0.7); LYMPHOCYTES ABSOLUTE AUTO 0.91 K/uL (0.8-3.3); LYMPHOCYTES PERCENT AUTO 5.5 % (11.4-47.7); MEAN CORPUSCULAR HEMOGLOBIN 31.3 pg (31.6-35.5); MEAN CORPUSCULAR HGB CONC 34.1 g/dL (31.6-35.5); MEAN CORPUSCULAR VOLUME 91.7 fL (81.4-99.0); MONOCYTES ABSOLUTE AUTO 1.08 K/uL (0.20-0.90); MONOCYTES PERCENT AUTO 6.5 % (3.3-12.6); NEUTROPHILS PERCENT AUTO 86.9 % (40.0-78.1); PLATELET COUNT,PLT 220 K/uL (130-375); RED BLOOD CELL COUNT 5.05 M/uL (4.14-5.76); WHITE BLOOD CELL COUNT,WBC 16.6 K/uL (3.2-11.0)
[2025-01-05] MEDS: Nitroglycerin 0.4 MG Tab.SL SL ONE (18:31)
[2025-01-05] MEDS: Furosemide 20 MG/2 ML VIAL IVPUSH ONE ×2 (18:32→21:21)
[2025-01-05] MEDS: Sodium Chloride 0.9% 10 ML Syringe FLUSH PRN (18:32)
[2025-01-05] MEDS: Albuterol/Ipratropium 3.0-0.5 MG/3 ML Neb Soln NEB ONE (18:37)
[2025-01-05 18:38] LABS: A/G RATIO 0.9 (1.2-2.2); ALANINE AMINOTRANSFERASE,ALT 32 U/L (12-78); ALBUMIN 3.6 g/dL (3.4-5.0); ALKALINE PHOSPHATASE 177 U/L (46-116); ASPARTATE AMNIOTRANSFERASE,AST 20 U/L (15-37); BILIRUBIN TOTAL 0.6 mg/dL (0.2-1.0); BLOOD UREA NITROGEN,BUN 24 mg/dL (7-18); CALCIUM 9.1 mg/dL (8.5-10.1); CARBON DIOXIDE,CO2 27 mmol/L (21-32); CHLORIDE,CL 101 mmol/L (100-108); CREATININE 1.7 mg/dL (0.8-1.3); EST CRCL DRUG DOSING (CG) 45.67 mL/min; ESTIMATED GFR 42 mL/min (>60); GLUCOSE RANDOM 319 mg/dL (74-106); POTASSIUM,K 4.1 mmol/L (3.6-5.2); PROTEIN TOTAL,TP 7.8 g/dL (6.4-8.2); SODIUM,NA 138 mmol/L (140-148)
[2025-01-05 18:39] LABS: ANION GAP 14.1 mmol/L (5.0-14.0); TROPONIN I HIGH SENSITIVITY 350.4 pg/mL (<=60.3)
[2025-01-05] MEDS: Sodium Chloride 0.9% 1,000 ML IV SCH (19:28)
[2025-01-05 21:37] LABS: APPEARANCE,URINE CLEAR (CLEAR); BILIRUBIN,URINE NEGATIVE (NEGATIVE); COLOR,URINE YELLOW (YELLOW); GLUCOSE,URINE 500 mg/dL (NEGATIVE); KETONES,URINE NEGATIVE (NEGATIVE); LEUKOCYTE ESTERASE,URINE NEGATIVE (NEGATIVE); NITRITE,URINE NEGATIVE (NEGATIVE); OCCULT BLOOD,URINE TRACE-INTACT (NEGATIVE); PH,URINE 5.5 (5.0-8.0); PROTEIN,URINE >=300 mg/dL (NEGATIVE); UROBILINOGEN,URINE 0.2 EU/dL (0.2-1.0)
[2025-01-05 21:42] LABS: AMORPHOUS SEDIMENT,URINE NOT SEEN; BACTERIA,URINE FEW; EPITHELIAL CELLS,URINE NOT SEEN; MUCUS,URINE NOT SEEN; RBC,URINE 0-5 (0-5); WBC,URINE 0-5 (0-5)
== END 2025-01-05 22:10 ==
LOC: JP.ED 17:55
DX: I11.0 Hypertensive heart disease with heart failure (principal); I50.9 Heart failure, unspecified; E11.65 Type 2 diabetes mellitus with hyperglycemia; I48.91 Unspecified atrial fibrillation; E78.00 Pure hypercholesterolemia, unspecified; J45.909 Unspecified asthma, uncomplicated; E66.9 Obesity, unspecified; Z68.38 Body mass index [BMI] 38.0-38.9, adult; Z88.8 Allergy status to other drugs, medicaments and biological substances; Z79.4 Long term (current) use of insulin; Z79.84 Long term (current) use of oral hypoglycemic drugs; Z79.01 Long term (current) use of anticoagulants; Z79.890 Hormone replacement therapy; Z79.899 Other long term (current) drug therapy
CPT/HCPCS: 36415; 71045; 80053; 81001; 82947; 83605; 83880; 84484; 85025; 93005; 94640; 96361; 96374; 96376; 99285; A9270; J1938; J7030

== ENCOUNTER 2025-08-06 08:36 | Day surgery (SDC) | payer MEDICARE ==
[2025-08-06] MEDS: Lactated Ringers 1,000 ML IV SCH (09:27)
[2025-08-06] MEDS ORDERED: Propofol 200 MG/20 ML SDV ONE (10:40)
[2025-08-06] MEDS ORDERED: fentaNYL 50 MCG/ML SDV ONE (10:40)
== END 2025-08-06 12:34 | disposition home or self-care (01) ==
LOC: JP.SDS 08:36
PROVIDERS: ATTEND Surgery
DX: Z12.11 Encounter for screening for malignant neoplasm of colon (principal); I10 Essential (primary) hypertension; E78.00 Pure hypercholesterolemia, unspecified; E11.9 Type 2 diabetes mellitus without complications; I48.91 Unspecified atrial fibrillation; Z86.0100 Personal history of colon polyps, unspecified; Z79.84 Long term (current) use of oral hypoglycemic drugs; Z79.01 Long term (current) use of anticoagulants; Z79.890 Hormone replacement therapy; Z79.4 Long term (current) use of insulin; Z79.899 Other long term (current) drug therapy
CPT/HCPCS: 00811; 45380; 45385; J2704; J3010; J7120